=== PATIENT | female | born 1970 | race Caucasian/White ===

== ENCOUNTER 2025-07-07 14:24 | Day surgery (SDC) | payer OTHER, SELFPAY ==
[2025-07-07] VITALS (8 sets, daily range): BP systolic 113–152; BP diastolic 66–91; PULSE 63–84; RESP 16–20; TEMP 36.2–36.5; O2SAT 93–100; BMI 36.8
[2025-07-07] MEDS: Lactated Ringers 1,000 ML 15 ML IV (14:46)
--- OUTSIDE RECORDS SUMMARY | 2025-07-07 14:59 | XMS RPT_ITS | CCD ---
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 49 U/L ADM SS AST [Catalytic activity/Vol] 22 U/L Normal 8 - 34 U/L ADM SS Bilirubin [Mass/Vol] 0.50 mg/dL Normal 0.20 - 1.20 mg/dL AH ADM SS Comment on above: Interpretive Data: U se of this assay is not recommended for patients undergoing treatment with eltrombopag due to the potential for falsely elevated results. Calcium [Mass/Vol] 8.4 mg/dL Low 8.7 - 10. 4 mg/dL AH ADM SS Chloride [Moles/Vol] 106 mmol/L Normal 98 - 11 0 mEq/L AH ADM SS CO2 [Moles/Vol] 21 mmol/L Low 22 - 32 mEq/L AH ADM SS Creatinine [Mass/Vol] 0.82 mg/dL Normal 0.50 - 1.20 mg/dL AH ADM SS Comment on above: Interpretive Data: T esting performed on itzbig analyzer using enzymatic creatinine methodology. Electrolyte Balance 8.0 mEq/L Normal 4.0 - 15 .0 mEq/L ADM SS Estimated Glomerular Filtration Rate 85 ml/min/1.73sqm Invalid Interpretation Code Chemistry S Comment on above: Interpretive Data: Stages of Chronic Kidney Disease (CKD) Stage Description eGFR(ml/min/1.73 sq.m.) CKD 1 Normal kidney function or >=90 normal kindney function with possible kidney damage (ex. Proteinuria) CKD 2 Kidney damage with mild loss 60-89 of kidney function CKD 3a Mild to moderate loss of kidney 45-59 function CKD 3b Moderate to severe loss of 30-44 of kindey function CKD 4 Severe loss of kidney function 15-29 CKD 5 Kidney failure <15 Note: (go live 2024) the eGFR calculation was updated to the 2020 CKD-EPI creatinine equation without a race factor to calculate the eGFR results. Globulin 3.4 G/dL Normal 2.5 - 4.2 G/dL ADM SS Glucose [Mass/Vol] 130 mg/dL High 70 - 110 mg/dL ADM SS Potassium [Moles/Vol] 3.8 mmol/L Normal 3.5 - 5.0 mEq/L AH ADM SS Protein [Mass/Vol] 6.2 G/dL Normal 5.7 - 8.2 G/dL AH ADM SS Sodium [Moles/Vol] 135 mmol/L Low 136 - 145 mEq/L AH ADM SS Urea nitrogen [Mass/Vol] 8.0 mg/dL Normal 8.0 - 22.0 mg/dL ADM SS Urea nitrogen/Creatinine [Mass ratio] 9.8 ratio Low 10.0 - 22.0 ratio AH ADM SS .Auto Diffon 11-25-2024 Basophil, Absolute 0.0 10 3/mcL Normal 0.0-0.3 [facility] Comment on above: Performed By: #### A DIFF, MDW, ANEU, BMP, GFR, TROPHS, CBC, APTT, PRO #### [facility] [address] [place], [place] [address] Basophils/100 WBC (Bld) 0.1 % Normal 0.0-2.5 [facility]A [place] Comment on above: Performed By: #### A DIFF, MDW, ANEU, BMP, GFR, TROPHS, CBC, APTT, PRO #### [facility] [address] [place], [place] [address] Eosinophil, Absolute 0.1 10 3/mcL Normal 0.0-0.7 [facility] [place] Comment on above: Performed By: #### A DIFF, MDW, ANEU, BMP, GFR, TROPHS, CBC, APTT, PRO #### [address] [place], [place] [address] Eosinophils/100 WBC (Bld) 0.3 % Normal 0.0-6.0 [facility] Comment on above: Performed By: #### A DIFF, MDW, ANEU, BMP, GFR, TROPHS, CBC, APTT, PRO #### [facility] [address] [place], [place] [address] Lymphocyte, Absolute 0.8 10 3/mcL Low 0.9-4.3 AU MAN [place] Comment on above: Performed By: #### A DIFF, MDW, ANEU, BMP, GFR, TROPHS, CBC, APTT, PRO #### [facility] [address] [place], [place] [address] Lymphocytes/100 WBC (Bld) 4.2 % Low 20.0-40.0 [facility]IKA [place] Comment on above: Performed By: #### A DIFF, MDW, ANEU, BMP, GFR, TROPHS, CBC, APTT, PRO #### [address] [place], [place] [address] Monocyte, Absolute 1.1 10 3/mcL Normal 0.1-1.4 [facility] Comment on above: Performed By: #### A DIFF, MDW, ANEU, BMP, GFR, TROPHS, CBC, APTT, PRO #### [address] [place], [place] [address] Monocytes/100 WBC (Bld) 5.7 % Normal 2.0-13.0 [facility] Comment on above: Performed By: #### A DIFF, MDW, ANEU, BMP, GFR, TROPHS, CBC, APTT, PRO #### [address] [place], [place] [address] Neutrophils/100 WBC (Bld) 89.7 % High 50.0-75.0 [facility]IKA [place] Comment on above: Performed By: #### A DIFF, MDW, ANEU, BMP, GFR, TROPHS, CBC, APTT, PRO #### [address] [place], [place] [address] .GFRon 11-25-2024 Estimated Glomerular Filtration Rate 67 ml/min/1.73sqm Normal [facility] Comment on above: Result Comment: Stages of Chronic Kidney Disease (CKD) Stage Description eGFR(ml/min/1.73 sq.m.) CKD 1 Normal kidney function or >=90 normal kindney function with possible kidney damage (ex. Proteinuria) CKD 2 Kidney damage with mild loss 60-89 of kidney function CKD 3a Mild to moderate loss of kidney 45-59 function CKD 3b Moderate to severe loss of 30-44 of kindey function CKD 4 Severe loss of kidney function 15-29 CKD 5 Kidney failure <15 Note: (go live 2024) the eGFR calculation was updated to the 2020 CKD-EPI creatinine equation without a race factor to calculate the eGFR results. Performed By: #### A DIFF, MDW, ANEU, BMP, GFR, TROPHS, CBC, APTT, PRO #### [address] [place], [place] [address] .MDWon 11-25-2024 Monocyte Distribution Width 21.87 High 0.00-20.00 [facility] Comment on above: Result Comment: For adults in ED, MDW>20.0 may be associated with a higher risk of sepsis during the first 12hrs of hospital admission Performed By: #### A DIFF, MDW, ANEU, BMP, GFR, TROPHS, CBC, APTT, PRO #### [address] [place], [place] [address] .NEUABSon 11-25-2024 Neutrophil, Absolute 17.5 10 3/mcL High 2.3-8.1 A [facility]AN [place] Comment on above: Performed By: #### A DIFF, MDW, ANEU, BMP, GFR, TROPHS, CBC, APTT, PRO #### [address] [place] [phone] CBCon 11-25-2024 Erythrocyte distribution width (RBC) [Ratio] 13.3 % Normal 11.5-15.5 [facility] Comment on above: Performed By: #### L IP, CMP, GFR, ANEU, MDW, CBC, ADIFF #### [address] [place] [phone] Hematocrit (Bld) [Volume fraction] 42.8 % Normal 34.0-46.0 [facility] Comment on above: Performed By: #### L IP, CMP, GFR, ANEU, MDW, CBC, ADIFF #### [address] [place], [place] [address] Hgb 14.7 G/dL Normal 12.0-16.0 [facility]A [place] Comment on above: Performed By: #### L IP, CMP, GFR, ANEU, MDW, CBC, ADIFF #### [address] [place], [place] [address] MCH (RBC) [Entitic mass] 33.1 pg High 27.0-33.0 [facility] [place] Comment on above: Performed By: #### L IP, CMP, GFR, ANEU, MDW, CBC, ADIFF #### [address] [place] [phone] MCHC 34.4 G/dL Normal 32.0-36.0 [facility] [place] Comment on above: Performed By: #### L IP, CMP, GFR, ANEU, MDW, CBC, ADIFF #### [address] [place], [place] [address] MCV (RBC) [Entitic vol] 96.4 fL Normal 80.0-99.0 [facility] [place] Comment on above: Performed By: #### L IP, CMP, GFR, ANEU, MDW, CBC, ADIFF #### [address] [place], [place] [address] Platelet 308 10 3/mcL Normal 150-450 [facility] [place] Comment on above: Performed By: #### L IP, CMP, GFR, ANEU, MDW, CBC, ADIFF #### [facility] [place], [place] [address] Platelet mean volume (Bld) [Entitic vol] 6.7 fL Normal 6.6-10.5 [facility] [place] Comment on above: Performed By: #### L IP, CMP, GFR, ANEU, MDW, CBC, ADIFF #### [facility] [place], [place] [address] RBC 4.44 10 6/mcL Normal 4.10-5.30 [facility] [place] Comment on above: Performed By: #### L IP, CMP, GFR, ANEU, MDW, CBC, ADIFF #### Marika [address] [place], [place] [address] WBC 19.5 10 3/mcL High 4.5-10.8 [facility] [place] Comment on above: Performed By: #### L IP, CMP, GFR, ANEU, MDW, CBC, ADIFF #### [facility] [place], [place] [address] CMPon 11-25-2024 Albumin Level 3.2 G/dL Low 3.5-5.0 [facility] [place] Comment on above: Performed By: #### A DIFF, MDW, ANEU, BMP, GFR, TROPHS, CBC, APTT, PRO #### [facility] [address] [place], [place] [address] Albumin/Globulin [Mass ratio] 0.8 {ratio} Low 1.1-2.5 [facility] Comment on above: Performed By: #### A DIFFKELIN, ANEU, BMP, GFR, TROPHS, CBC, APTT, PRO #### [facility] [address] [place], [place] [address] ALP [Catalytic activity/Vol] 86 U/L Normal 40-135 [facility] Comment on above: Performed By: #### A DIFF, KELIN, ANEU, BMP, GFR, TROPHS, CBC, APTT, PRO #### [facility] [address] [place], [place] [address] ALT [Catalytic activity/Vol] 18 U/L Normal 14-59 [facility] Comment on above: Performed By: #### A KELIN RUBY, ANEU, BMP, GFR, TROPHS, CBC, APTT, PRO #### [facility] [address] [place] [phone] AST [Catalytic activity/Vol] 11 U/L Normal 10-40 [facility] Comment on above: Performed By: #### A KELIN RUBY, ANEU, BMP, GFR, TROPHS, CBC, APTT, PRO #### [facility] [address] [place], [place] [address] Bili Total 1.0 mg/dL Normal 0.2-1.0 [facility] Comment on above: Result Comment: Use of this assay is not recommended for patients undergoing treatment with eltrombopag due to the potential for falsely elevated results. Performed By: #### A KELIN RUBY, ANEU, BMP, GFR, TROPHS, CBC, APTT, PRO #### [facility] [address] [place], [place] [address] BUN/Creatinine Ratio 8 ratio Normal 7-27 [facility] Comment on above: Performed By: #### A DIFF, KELIN, ANEU, BMP, GFR, TROPHS, CBC, APTT, PRO #### [facility] [address] [place], [place] [address] Calcium [Mass/Vol] 9.3 mg/dL Normal 8.4-10.2 AULTMA N [place] Comment on above: Performed By: #### A DIFF, MDW, ANEU, BMP, GFR, TROPHS, CBC, APTT, PRO #### [facility] [address] [place], [place] [address] Chloride [Moles/Vol] 100 mmol/L Normal 98-107 ANNITA MAN [place] Comment on above: Performed By: #### A DIFF, MDW, ANEU, BMP, GFR, TROPHS, CBC, APTT, PRO #### [facility] [address] [place], [place] [address] CO2 [Moles/Vol] 29 mmol/L Normal 22-29 [facility] Comment on above: Performed By: #### A DIFF, MDW, ANEU, BMP, GFR, TROPHS, CBC, APTT, PRO #### [facility] [address] [place], [place] [address] Creatinine [Mass/Vol] 1.00 mg/dL High 0.51-0.95 [facility] Comment on above: Performed By: #### A DIFF, MDW, ANEU, BMP, GFR, TROPHS, CBC, APTT, PRO #### [facility] [address] [place], [place] [address] Electrolyte Balance 7.0 mEq/L Normal 4.0-15.0 AULTM AN [place] Comment on above: Performed By: #### A DIFF, MDW, ANEU, BMP, GFR, TROPHS, CBC, APTT, PRO #### [facility] [address] [place], [place] [address] Globulin 4.2 G/dL Normal 2.7-4.4 [facility] Comment on above: Performed By: #### A DIFF, MDW, ANEU, BMP, GFR, TROPHS, CBC, APTT, PRO #### [facility] [address] [place], [place] [address] Glucose [Mass/Vol] 128 mg/dL High 70-105 AULTMA N [place] Comment on above: Performed By: #### A DIFF, MDW, ANEU, BMP, GFR, TROPHS, CBC, APTT, PRO #### [facility] [address] [place], [place] [address] Potassium [Moles/Vol] 3.8 mmol/L Normal 3.5-5.1 [facility] Comment on above: Performed By: #### A DIFF, MDW, ANEU, BMP, GFR, TROPHS, CBC, APTT, PRO #### [facility] [address] [place], [place] [address] Sodium [Moles/Vol] 136 mmol/L Normal 136-145 AULTOR N AMASA Comment on above: Performed By: #### A DIFF, MDW, ANEU, BMP, GFR, TROPHS, CBC, APTT, PRO #### [facility] [address] [place], [place] [address] Total Protein 7.4 G/dL Normal 6.4-8.2 [facility] Comment on above: Performed By: #### A DIFF, KELIN, ANEU, BMP, GFR, TROPHS, CBC, APTT, PRO #### [facility] [place], [place] [address] Urea nitrogen [Mass/Vol] 8 mg/dL Normal 7-18 [facility] Comment on above: Performed By: #### A DIFF, KELIN, ANEU, BMP, GFR, TROPHS, CBC, APTT, PRO #### [address] [place], [place] [address] LABORATORYOrdered By: Elvia Mcgraw on 11-25-2024 Beta HCG ( test) Ql (U) Negative (11/25/24 3:10 PM) [facility] LABORATORYOrdered By: SYSTEM SYSTEM on 11-25-2024 Albumin Level 3.2 G/dL Low 3.5 - 5.0 G/dL AM ADM SS Albumin/Globulin [Mass ratio] 0.8 {ratio} Low 1.1 - 2.5 ratio AM ADM SS Alk Phos 86 1 Normal 40 - 135 U/L AM ADM SS ALT [Catalytic activity/Vol] 18 U/L Normal 14 - 59 U/L AM ADM SS AST [Catalytic activity/Vol] 11 U/L Normal 10 - 40 U/L AM ADM SS Basophils (Bld) [#/Vol] 0.0 103/mcL Normal 0.0 - 0.3 10^3/mcL AM Workflow SS Basophils/100 WBC (Bld) 0.1 % Normal 0.0 - 2.5 % AM Workflow SS Bili Total 1.0 mg/dL Normal 0.2 - 1.0 mg/dL AM ADM SS Comment on above: Interpretive Data: U se of this assay is not recommended for patients undergoing treatment with eltrombopag due to the potential for falsely elevated results. BUN/Creatinine Ratio 8 ratio Normal 7 - 27 ratio AM ADM SS Calcium [Mass/Vol] 9.3 mg/dL Normal 8.4 - 10. 2 mg/dL AM ADM SS Chloride [Moles/Vol] 100 mmol/L Normal 98 - 10 7 mmol/L AM ADM SS CO2 [Moles/Vol] 29 mmol/L Normal 22 - 29 mmol/L AM ADM SS Creatinine [Mass/Vol] 1.00 mg/dL High 0.51 - 0.95 mg/dL AM ADM SS Electrolyte Balance 7.0 mEq/L Normal 4.0 - 15 .0 mEq/L AM ADM SS Eosinophils (Bld) [#/Vol] 0.1 103/mcL Normal 0.0 - 0.7 10^3/mcL AM Workflow SS Eosinophils/100 WBC (Bld) 0.3 % Normal 0.0 - 6.0 % AM Workflow SS Erythrocyte distribution width (RBC) [Ratio] 13.3 % Normal 11.5 - 15.5 % AM Workflow SS Estimated Glomerular Filtration Rate 67 ml/min/1.73sqm Invalid Interpretation Code AM Chemistry S Comment on above: Interpretive Data: Stages of Chronic Kidney Disease (CKD) Stage Description eGFR(ml/min/1.73 sq.m.) CKD 1 Normal kidney function or >=90 normal kindney function with possible kidney damage (ex. Proteinuria) CKD 2 Kidney damage with mild loss 60-89 of kidney function CKD 3a Mild to moderate loss of kidney 45-59 function CKD 3b Moderate to severe loss of 30-44 of kindey function CKD 4 Severe loss of kidney function 15-29 CKD 5 Kidney failure <15 Note: (go live 2024) the eGFR calculation was updated to the 2020 CKD-EPI creatinine equation without a race factor to calculate the eGFR results. Globulin 4.2 G/dL Normal 2.7 - 4.4 G/dL AM ADM SS Glucose [Mass/Vol] 128 mg/dL High 70 - 105 mg/dL AM ADM SS Hematocrit (Bld) [Volume fraction] 42.8 % Normal 34.0 - 46.0 % AM Workflow SS Hemoglobin (Bld) [Mass/Vol] 14.7 G/dL Normal 12.0 - 16.0 G/dL AM Workflow SS Lipase Level 21 1 Normal 16 - 77 U/L AM ADM SS Lymphocytes (Bld) [#/Vol] 0.8 103/mcL Low 0.9 - 4.3 10^3/mcL AM Workflow SS Lymphocytes/100 WBC (Bld) 4.2 % Low 20.0 - 40.0 % AM Workflow SS MCH (RBC) [Entitic mass] 33.1 pg High 27.0 - 33.0 pg AM Workflow SS MCHC 34.4 G/dL Normal 32.0 - 36.0 G/dL AM Workflow SS MCV (RBC) [Entitic vol] 96.4 fL Normal 80.0 - 99.0 fL AM Workflow SS Monocyte distribution width Auto (Bld) [Entitic vol] 21.87 1 High 0.00 - 20.00 AM Workflow SS Comment on above: Result Comment: For adults in ED, MDW>20.0 may be associated with a higher risk of sepsis during the first 12hrs of hospital admission Monocytes (Bld) [#/Vol] 1.1 103/mcL Normal 0.1 - 1.4 10^3/mcL AM Workflow SS Monocytes/100 WBC (Bld) 5.7 % Normal 2.0 - 13.0 % AM Workflow SS Neutrophils (Bld) [#/Vol] 17.5 103/mcL High 2.3 - 8.1 10^3/mcL AM Workflow SS Neutrophils/100 WBC (Bld) 89.7 % High 50.0 - 75.0 % AM Workflow SS Platelet mean volume (Bld) [Entitic vol] 6.7 fL Normal 6.6 - 10.5 fL AM Workflow SS Platelets (Bld) [#/Vol] 308 103/mcL Normal 150 - 450 10^3/mcL AM Workflow SS Potassium [Moles/Vol] 3.8 mmol/L Normal 3.5 - 5.1 mmol/L AM ADM SS RBC (Bld) [#/Vol] 4.44 106/mcL Normal 4.10 - 5.3 0 10^6/mcL AM Workflow SS Sodium [Moles/Vol] 136 mmol/L Normal 136 - 145 mmol/L AM ADM SS Total Protein 7.4 G/dL Normal 6.4 - 8.2 G/dL AM ADM SS Urea nitrogen [Mass/Vol] 8 mg/dL Normal 7 - 18 mg/dL AM ADM SS WBC (Bld) [#/Vol] 19.5 103/mcL High 4.5 - 10.8 10^3/mcL AM Workflow SS LIPon 11-25-2024 Lipase Level 21 U/L Normal 16-[address] [facility] Comment on above: Performed By: #### A DIFF, MDW, ANEU, BMP, GFR, TROPHS, CBC, APTT, PRO #### Marika [address] [place] [phone] US ABDOMEN LIMITEDon 025 US ABDOMEN LIMITED ORIGINAL EXAMINATION: LIMITED ABDOMINAL ULTRASOUND11/25/2024 11:38 am Limited ultrasound of the abdomen attention right upper quadrant COMPARISON: CT 11/23/2024 TECHNIQUE: This report is based on interpretation of permanently recorded ultrasound images. HISTORY: ORDERING SYSTEM PROVIDED HISTORY: Reason for Exam: abdominal pain; suspect gallstones, gallbladder, or cholecystitis, FINDINGS: The liver is normal in size and echogenicity. No suspicious focal lesions are seen. There is no intrahepatic bile duct dilatation. The common duct is 2 mm at the meri hepatis. There is antegrade blood flow in the main portal vein.. The gallbladder is moderately distended with a stone in the gallbladder neck region. This is not mobile with change in position. There is borderline gallbladder wall thickening. Negative sonographic Lanier's sign.. The pancreas is suboptimally evaluated due to bowel gas artifacts.. No ascites is seen in the Aranda's pouch. Limited survey images of the right kidney shows normal size and no hydronephrosis. IMPRESSION: Gallstone with borderline gallbladder wall thickening and negative sonographic Lanier's sign. Findings are equivocal for the possibility of acute cholecystitis. If strongly suspected, consider HIDA scan. Interpreted by: Garland Tobias MD Preliminary Report By: Garland Tobias MD Electronically signed By Garland Tobias MD Dictated Date: 11/25/2024 11:41:47 AM Prelim Date: 11/25/2024 11:43:41 AM Sign Date: 11/25/2024 11:43:41 AM Ordering Provider: [facility] .Auto Diffon 11-23-2024 Basophil, Absolute 0.1 10 3/mcL Normal 0.0-0.3 ANNITA MAN [place] Comment on above: Performed By: #### A DIFF, MDW, ANEU, BMP, GFR, TROPHS, CBC, APTT, PRO #### [address] [place], [place] [address] Basophils/100 WBC (Bld) 1.5 % Normal 0.0-2.5 [facility]IKA [place] Comment on above: Performed By: #### A DIFF, MDW, ANEU, BMP, GFR, TROPHS, CBC, APTT, PRO #### [address] [place], [place] [address] Eosinophil, Absolute 0.0 10 3/mcL Normal 0.0-0.7 AU LTMAN [place] Comment on above: Performed By: #### A DIFF, MDW, ANEU, BMP, GFR, TROPHS, CBC, APTT, PRO #### [facility] [address] [place], [place] [address] Eosinophils/100 WBC (Bld) 0.5 % Normal 0.0-6.0 [facility]IKA [place] Comment on above: Performed By: #### A DIFF, MDW, ANEU, BMP, GFR, TROPHS, CBC, APTT, PRO #### [facility] [address] [place], [place] [address] Lymphocyte, Absolute 1.5 10 3/mcL Normal 0.9-4.3 AU LTMAN [place] Comment on above: Performed By: #### A DIFF, MDW, ANEU, BMP, GFR, TROPHS, CBC, APTT, PRO #### [address] [place], [place] [address] Lymphocytes/100 WBC (Bld) 15.7 % Low 20.0-40.0 MARIKA [place] Comment on above: Performed By: #### A DIFF, MDW, ANEU, BMP, GFR, TROPHS, CBC, APTT, PRO #### [address] [place], [place] [address] Monocyte, Absolute 0.5 10 3/mcL Normal 0.1-1.4 [facility] Comment on above: Performed By: #### A DIFF, MDW, ANEU, BMP, GFR, TROPHS, CBC, APTT, PRO #### [facility] [address] [place], [place] [address] Monocytes/100 WBC (Bld) 5.6 % Normal 2.0-13.0 [facility] Comment on above: Performed By: #### A DIFF, MDW, ANEU, BMP, GFR, TROPHS, CBC, APTT, PRO #### [facility] [address] [place], [place] [address] Neutrophils/100 WBC (Bld) 76.7 % High 50.0-75.0 [facility] Comment on above: Performed By: #### A DIFF, MDW, ANEU, BMP, GFR, TROPHS, CBC, APTT, PRO #### [address] [place], [place] [address] .GFRon 11-23-2024 Estimated Glomerular Filtration Rate 71 ml/min/1.73sqm Normal [facility] Comment on above: Result Comment: Stages of Chronic Kidney Disease (CKD) Stage Description eGFR(ml/min/1.73 sq.m.) CKD 1 Normal kidney function or >=90 normal kindney function with possible kidney damage (ex. Proteinuria) CKD 2 Kidney damage with mild loss 60-89 of kidney function CKD 3a Mild to moderate loss of kidney 45-59 function CKD 3b Moderate to severe loss of 30-44 of kindey function CKD 4 Severe loss of kidney function 15-29 CKD 5 Kidney failure <15 Note: (go live 2024) the eGFR calculation was updated to the 2020 CKD-EPI creatinine equation without a race factor to calculate the eGFR results. Performed By: #### A DIFF, MDW, ANEU, BMP, GFR, TROPHS, CBC, APTT, PRO #### [address] [place], [place] [address] .MDWon 11-23-2024 Monocyte Distribution Width 17.70 Normal 0.00-20.00 [facility] Comment on above: Result Comment: For ED adult patients suspected of sepsis, MDW<=20.0 does not rule out sepsis or risk of sepsis Performed By: #### A DIFF, MDW, ANEU, BMP, GFR, TROPHS, CBC, APTT, PRO #### [facility] [address] [place] [phone] .NEUABSon 11-23-2024 Neutrophil, Absolute 7.2 10 3/mcL Normal 2.3-8.1 [facility] Comment on above: Performed By: #### A DIFF, MDW, ANEU, BMP, GFR, TROPHS, CBC, APTT, PRO #### [facility] [address] [place] [address] CBCon 11-23-2024 Erythrocyte distribution width (RBC) [Ratio] 13.0 % Normal 11.5-15.5 [facility] Comment on above: Performed By: #### A DIFF, MDW, ANEU, BMP, GFR, TROPHS, CBC, APTT, PRO #### [facility] [address] [place] [phone] Hematocrit (Bld) [Volume fraction] 41.3 % Normal 34.0-46.0 [facility] Comment on above: Performed By: #### A DIFF, MDW, ANEU, BMP, GFR, TROPHS, CBC, APTT, PRO #### [facility] [address] [place] [phone] Hgb 14.3 G/dL Normal 12.0-16.0 [facility] Comment on above: Performed By: #### A DIFF, MDW, ANEU, BMP, GFR, TROPHS, CBC, APTT, PRO #### [facility] [address] [place] [phone] MCH (RBC) [Entitic mass] 33.2 pg High 27.0-33.0 [facility] Comment on above: Performed By: #### A DIFF, MDW, ANEU, BMP, GFR, TROPHS, CBC, APTT, PRO #### [facility] [address] [place], [place] [address] MCHC 34.5 G/dL Normal 32.0-36.0 [facility] Comment on above: Performed By: #### A DIFF, MDW, ANEU, BMP, GFR, TROPHS, CBC, APTT, PRO #### Marika [address] [place], [place] [address] MCV (RBC) [Entitic vol] 96.1 fL Normal 80.0-99.0 [facility] Comment on above: Performed By: #### A DIFF, MDW, ANEU, BMP, GFR, TROPHS, CBC, APTT, PRO #### Marika [address] [place], [place] [address] Platelet 342 10 3/mcL Normal 150-450 [facility] Comment on above: Performed By: #### A DIFF, MDW, ANEU, BMP, GFR, TROPHS, CBC, APTT, PRO #### Marika [address] [place], [place] [address] Platelet mean volume (Bld) [Entitic vol] 6.6 fL Normal 6.6-10.5 [facility] Comment on above: Performed By: #### A DIFF, MDW, ANEU, BMP, GFR, TROPHS, CBC, APTT, PRO #### Marika [address] [place], [place] [address] RBC 4.30 10 6/mcL Normal 4.10-5.30 MARIKA [facility] Comment on above: Performed By: #### A DIFF, MDW, ANEU, BMP, GFR, TROPHS, CBC, APTT, PRO #### Marika [address] [place], [place] [address] WBC 9.4 10 3/mcL Normal 4.5-10.8 MARIKA [facility] Comment on above: Performed By: #### A DIFF, MDW, ANEU, BMP, GFR, TROPHS, CBC, APTT, PRO #### Marika [address] [place], [place] [address] CMPon 11-23-2024 Albumin Level 3.6 G/dL Normal 3.5-5.0 MARIKA MASSILLON Comment on above: Performed By: #### A DIFF, MDW, ANEU, BMP, GFR, TROPHS, CBC, APTT, PRO #### [facility] [address] [place], [place] [address] Albumin/Globulin [Mass ratio] 1.1 {ratio} Normal 1.1-2.5 [facility] Comment on above: Performed By: #### A DIFF, MDW, ANEU, BMP, GFR, TROPHS, CBC, APTT, PRO #### [facility] [address] [place], [place] [address] ALP [Catalytic activity/Vol] 73 U/L Normal 40-135 [facility] Comment on above: Performed By: #### A DIFF, MDW, ANEU, BMP, GFR, TROPHS, CBC, APTT, PRO #### [facility] [address] [place], [place] [address] ALT [Catalytic activity/Vol] 24 U/L Normal 14-59 [facility] Comment on above: Performed By: #### A DIFF, MDW, ANEU, BMP, GFR, TROPHS, CBC, APTT, PRO #### [facility] [address] [place], [place] [address] AST [Catalytic activity/Vol] 32 U/L Normal 10-40 [facility] Comment on above: Performed By: #### A DIFF, MDW, ANEU, BMP, GFR, TROPHS, CBC, APTT, PRO #### [facility] [address] [place], [place] [address] Bili Total 0.4 mg/dL Normal 0.2-1.0 [facility] Comment on above: Result Comment: Use of this assay is not recommended for patients undergoing treatment with eltrombopag due to the potential for falsely elevated results. Performed By: #### A DIFF, MDW, ANEU, BMP, GFR, TROPHS, CBC, APTT, PRO #### [facility] [address] [place], [place] [address] BUN/Creatinine Ratio 8 ratio Normal 7-27 [facility] Comment on above: Performed By: #### A DIFF, MDW, ANEU, BMP, GFR, TROPHS, CBC, APTT, PRO #### [facility] [address] [place], [place] [address] Calcium [Mass/Vol] 8.9 mg/dL Normal 8.4-10.2 AULTMA N MASSILLO Comment on above: Performed By: #### A DIFF, MDW, ANEU, BMP, GFR, TROPHS, CBC, APTT, PRO #### [facility] [address] [place], [place] [address] Chloride [Moles/Vol] 103 mmol/L Normal 98-107 ANNITA MAN [facility] Comment on above: Performed By: #### A DIFF, MDW, ANEU, BMP, GFR, TROPHS, CBC, APTT, PRO #### [facility] [address] [place], [place] [address] CO2 [Moles/Vol] 24 mmol/L Normal 22-29 [facility] Comment on above: Performed By: #### A DIFF, MDW, ANEU, BMP, GFR, TROPHS, CBC, APTT, PRO #### [facility] [address] [place], [place] [address] Creatinine [Mass/Vol] 0.96 mg/dL High 0.51-0.95 [facility] Comment on above: Performed By: #### A DIFF, MDW, ANEU, BMP, GFR, TROPHS, CBC, APTT, PRO #### [facility] [address] [place], [place] [address] Electrolyte Balance 11.0 mEq/L Normal 4.0-15.0 AULT AN MASSILLO Comment on above: Performed By: #### A DIFF, MDW, ANEU, BMP, GFR, TROPHS, CBC, APTT, PRO #### [facility] [address] [place], [place] [address] Globulin 3.4 G/dL Normal 2.7-4.4 [facility] Comment on above: Performed By: #### A DIFF, MDW, ANEU, BMP, GFR, TROPHS, CBC, APTT, PRO #### [facility] [address] [place], [place] [address] Glucose [Mass/Vol] 108 mg/dL High 70-105 AULTMA N [facility] Comment on above: Performed By: #### A KELIN RUBY, ANEU, BMP, GFR, TROPHS, CBC, APTT, PRO #### [facility] [address] [place], [place] [address] Potassium [Moles/Vol] 4.0 mmol/L Normal 3.5-5.1 AUL TMAN AMASA Comment on above: Performed By: #### A MD FLORIW, ANEU, BMP, GFR, TROPHS, CBC, APTT, PRO #### [facility] [address] [place], [place] [address] Sodium [Moles/Vol] 138 mmol/L Normal 136-145 AULTMA N AMASA Comment on above: Performed By: #### A KELIN RUBY, ANEU, BMP, GFR, TROPHS, CBC, APTT, PRO #### [facility] [address] [place], [place] [address] Total Protein 7.0 G/dL Normal 6.4-8.2 [facility] Comment on above: Performed By: #### A KELIN RUBY, ANEU, BMP, GFR, TROPHS, CBC, APTT, PRO #### [facility] [address] [place], [place] [address] Urea nitrogen [Mass/Vol] 8 mg/dL Normal 7-18 [facility] Comment on above: Performed By: #### A KELIN RUBY, ANEU, BMP, GFR, TROPHS, CBC, APTT, PRO #### [facility] [address] [place], [place] [address] CT ABD/PELVIS W/ IV CONTRAST ONLYon 11-23-2024 CT ABD/PELVIS W/ IV CONTRAST ONLY ORIGINAL EXAMINATION: CT OF THE ABDOMEN AND PELVIS WITH CONTRAST11/23/2024 1:40 pm TECHNIQUE: CT of the abdomen and pelvis was performed with the administration of intravenous contrast. Multiplanar reformatted images are provided for review. Automated exposure control, iterative reconstruction, and/or weight based adjustment of the mA/kV was utilized to reduce the radiation dose to as low as reasonably achievable. COMPARISON: 07/14/2021 HISTORY: ORDERING SYSTEM PROVIDED HISTORY: Reason for Exam: MID ABD PAIN, NAUSEA, VOMITING pain FINDINGS: Dependent atelectasis noted in the lungs.. There is no visible pleural or pericardial effusion. The heart is normal in size. The liver, spleen, adrenal glands, and pancreas are within normal limits. Cholelithiasis noted with a large calcified stone in the gallbladder. The left kidney is surgically absent.. A small hiatal hernia noted. The large and small bowel demonstrate no obstruction. Diverticulosis noted. The appendix is normal. No free intraperitoneal fluid or gas is identified. The aorta is normal in caliber. There is no lymphadenopathy. A small hiatal hernia. No filling defects seen in the urinary bladder. Intrauterine device noted. A right adnexal cyst measures 2.5 cm and is mildly complex, measuring 25 Hounsfield units. There is no acute fracture or aggressive osseous lesion. Degenerative changes seen in the spine, most prevalent at L4-5. Mild anterolisthesis seen of L4 with respect L5. A small fat containing hernia noted at the umbilicus. IMPRESSION: 1. Left nephrectomy changes 2. Cholelithiasis. 3. Diverticulosis. 4. Mildly complex right adnexal cyst. Ultrasound of pelvis advised for further evaluation Interpreted by: Domenic Romero MD Preliminary Report By: Domenic Romero MD Electronically signed By Domenic Romero MD Dictated Date: 11/23/2024 1:57:41 PM Prelim Date: 11/23/2024 2:03:46 PM Sign Date: 11/23/2024 2:03:46 PM Ordering Provider: MELISA SANTOS Normal [facility] LIPon 11-23-2024 Lipase Level 35 U/L Normal 16-77 [facility] Comment on above: Performed By: #### A DIFF, MDW, ANEU, BMP, GFR, TROPHS, CBC, APTT, PRO #### [facility] [address] 11-23-2024 High Sensitivity Troponin I 5 ng/L Normal 0-51 [facility] Comment on above: Result Comment: High Sensitive Troponin I Reference Ranges: Female: 0-51 ng/L Male: 0-76 ng/L Testing performed on Dimension EXL using a homogeneous sandwich chemiluminescent immunoassay based on [employer] technology. Performed By: #### A KELIN RUBY, ANEU, BMP, GFR, TROPHS, CBC, APTT, PRO #### [facility] [address] [place], [place] [address] UAon 11-23-2024 Color (U) Yellow Normal MARIKA MASSILLON Comment on above: Performed By: #### A KELIN RUBY, ANEU, BMP, GFR, TROPHS, CBC, APTT, PRO #### [facility] [address] [place] [id number] Glucose (U) [Mass/Vol] Negative Normal Negative MARIKA MASSILLON Comment on above: Performed By: #### A KELIN RUBY, ANEU, BMP, GFR, TROPHS, CBC, APTT, PRO #### [facility] [address] [place], [place] [address] Ketones Ql (U) Negative Normal Neg-Trace MARIKA MASSILLON Comment on above: Performed By: #### A KELIN RUBY, STEPHON, BMP, GFR, TROPHS, CBC, APTT, PRO #### [facility] [address] [place], [place] [address] UA Appear Clear Normal MARIKA MASSILLON Comment on above: Performed By: #### A KELIN RUBY, ANEU, BMP, GFR, TROPHS, CBC, APTT, PRO #### [facility] [address] [place], [place] [address] UA Blood Trace Normal Neg-Trace MARIKA MASSILLON Comment on above: Performed By: #### A KELIN RUBY, ANEU, BMP, GFR, TROPHS, CBC, APTT, PRO #### [facility] [address] [place], [place] [address] UA Leuk Est Negative Normal Negative MARIKA MASSILLON Comment on above: Performed By: #### A KELIN RUBY, ANEU, BMP, GFR, TROPHS, CBC, APTT, PRO #### [facility] [address] [place], [place] [address] UA Nitrite Negative Normal Negative MARIKA MASSILLON Comment on above: Performed By: #### A KELIN RUBY, ANEU, BMP, GFR, TROPHS, CBC, APTT, PRO #### [facility] [address] [place] [address] UA pH 7.0 Normal 5.0 - 8.0 MARIKA MASSILLON Comment on above: Performed By: #### A FLORI, KELIN, ANEU, BMP, GFR, TROPHS, CBC, APTT, PRO #### [facility] [address] [place] [address] UA Protein 30 mg/dL Normal Negative MARIKA MASSILLON Comment on above: Performed By: #### A FLORI, KELIN, ANEU, BMP, GFR, TROPHS, CBC, APTT, PRO #### [facility] [address] [place] [address] UA Spec Grav 1.025 Normal MARIKA AMASA Comment on above: Performed By: #### A KELIN RUBY, ANEU, BMP, GFR, TROPHS, CBC, APTT, PRO #### [facility] [address] [place] [address] UA Specimen Type Clean Catch Normal MARIKA AMASA Comment on above: Performed By: #### A KELIN RUBY, ANEU, BMP, GFR, TROPHS, CBC, APTT, PRO #### [facility] [address] [place] [address] UA Urobilinogen 4.0 E.U./dL Abnormal MARIKA MASSILLON Comment on above: Performed By: #### A KELIN RUBY, ANEU, BMP, GFR, TROPHS, CBC, APTT, PRO #### [facility] [address] [place] [address] Urobilinogen (U) [Mass/Vol] Negative Normal Neg-Trace MARIKA MASSILLON Comment on above: Performed By: #### A KELIN RUBY, ANEU, BMP, GFR, TROPHS, CBC, APTT, PRO #### [facility] [address] [place] [address] UAMICon 11-23-2024 UA Bacteria 2+ /hpf Abnormal Negative MARIKA MASSILLON Comment on above: Performed By: #### A KELIN RUBY, ANEU, BMP, GFR, TROPHS, CBC, APTT, PRO #### [facility] [address] [place], [place] [address] UA RBC 0-2 Normal 0-2 MARIKA MASSILLON Comment on above: Performed By: #### A DIFF, MDW, ANEU, BMP, GFR, TROPHS, CBC, APTT, PRO #### [facility] [address] [place], [place] [address] UA Squam Epithelial 50-100 Abnormal 0-20 AULTM AN MASSILLON Comment on above: Performed By: #### A DIFF, MDW, ANEU, BMP, GFR, TROPHS, CBC, APTT, PRO #### [facility] [address] [place], [place] [address] UA WBC 3-5 Normal 0-5 MARIKA MASSILLON Comment on above: Performed By: #### A DIFF, MDW, ANEU, BMP, GFR, TROPHS, CBC, APTT, PRO #### [facility] [address] [place], [place] [address] US PELVIS NON-OB W/TRANSVAGI NALon 11-23-2024 US PELVIS NON-OB W/TRANSVAGINAL ORIGINAL EXAMINATION: Ultrasound pelvis, 11/23/2024 3:06 pm transabdominal and transvaginal with duplex ovarian Doppler COMPARISON: CT same day TECHNIQUE: This report is based on interpretation of permanently recorded ultrasound images. HISTORY: ORDERING SYSTEM PROVIDED HISTORY: Reason for Exam: right lower quadrant pain, right adnexal cyst on CT, patient has an IUD, patient is not menopausal by given history FINDINGS: The uterus is 8.5 x 4.8 x 4.2 cm. No myometrial mass is seen.. The endometrium is poorly evaluated due to artifacts from an indwelling IUD. It is not abnormally thickened. An IUD is appropriately positioned in the endometrial canal. No 3D imaging is performed. Right ovary: 3.3 x 2.3 x 2.1 cm. There is a 1.9 x 2.4 x 1.8 cm simple appearing follicle in the ovary. Left ovary: Not visualized perhaps obscured by bowel gas artifacts. There is robust blood flow in the right ovary with arterial and venous waveforms shown on spectral analysis. No pelvic free fluid is seen. IMPRESSION: Normal right ovary with a follicle corresponding to the cystic lesion on CT. Robust blood flow to the right ovary. IUD is appropriately position. Interpreted by: Garland Tobias MD Preliminary Report By: Garland Tobias MD Electronically signed By Garland Tobias MD Dictated Date: 11/23/2024 3:19:14 PM Prelim Date: 11/23/2024 3:22:27 PM Sign Date: 11/23/2024 3:22:27 PM Ordering Provider: MELISA SANTOS Normal MARIKA MASSILLON .Auto Diffon 06-06-2024 Basophil, Absolute 0.1 10 3/mcL Normal 0.0-0.3 ANNITA MAN MASSILLON Comment on above: Performed By: #### A DIFF MDW, ANEU, BMP, GFR, TROPHS, CBC, APTT, PRO #### [facility] [address] [place], [place] [address] Basophils/100 WBC (Bld) 0.7 % Normal 0.0-2.5 MARIKA MASSILLON Comment on above: Performed By: #### A DIFF MDW, ANEU, BMP, GFR, TROPHS, CBC, APTT, PRO #### [facility] [address] [place], [place] [address] Eosinophil, Absolute 0.2 10 3/mcL Normal 0.0-0.7 AU MAN MASSILLON Comment on above: Performed By: #### A DIFF MDW, ANEU, BMP, GFR, TROPHS, CBC, APTT, PRO #### [facility] [address] [place], [place] [address] Eosinophils/100 WBC (Bld) 1.6 % Normal 0.0-6.0 MARIKA MASSILLON Comment on above: Performed By: #### A DIFF MDW, ANEU, BMP, GFR, TROPHS, CBC, APTT, PRO #### [facility] [address] [place], [place] [address] Lymphocyte, Absolute 2.7 10 3/mcL Normal 0.9-4.3 AU LTMAN MASSILLON Comment on above: Performed By: #### A DIFF MDW, ANEU, BMP, GFR, TROPHS, CBC, APTT, PRO #### [facility] [address] [place], [place] [address] Lymphocytes/100 WBC (Bld) 28.4 % Normal 20.0-40.0 [facility] Comment on above: Performed By: #### A DIFF, MDW, ANEU, BMP, GFR, TROPHS, CBC, APTT, PRO #### [facility] [address] [place], [place] [address] Monocyte, Absolute 0.8 10 3/mcL Normal 0.1-1.4 [facility] Comment on above: Performed By: #### A DIFF, MDW, ANEU, BMP, GFR, TROPHS, CBC, APTT, PRO #### [facility] [address] [place], [place] [address] Monocytes/100 WBC (Bld) 8.2 % Normal 2.0-13.0 [facility] Comment on above: Performed By: #### A DIFFKELIN, ANEU, BMP, GFR, TROPHS, CBC, APTT, PRO #### [facility] [address] [place], [place] [address] Neutrophils/100 WBC (Bld) 61.1 % Normal 50.0-75.0 [facility] Comment on above: Performed By: #### A DIFF, MDW, ANEU, BMP, GFR, TROPHS, CBC, APTT, PRO #### [facility] [address] [place], [place] [address] .GFRon 06-06-2024 GFR 59 ml/min/1.73sqm Normal [facility] Comment on above: Result Comment: GFR Population mean for , Non- Americans Ages 20-29 = 116 mL/min/1.73 sq.m. Ages 30-39 = 107 mL/min/1.73 sq.m. Ages 40-49 = 99 mL/min/1.73 sq.m. Ages 50-59 = 93 mL/min/1.73 sq.m. Ages 60-69 = 85 mL/min/1.73 sq.m. Ages 70+ = 75 mL/min/1.73 sq.m. Chronic Kidney Disease: Less than 60 mL/min/1.73 square meters End Stage Renal Disease: Less than 15 mL/min/1.73 square meters Performed By: #### A DIFF, MDW, ANEU, BMP, GFR, TROPHS, CBC, APTT, PRO #### [facility] [address] [place], [place] [address] GFR Non- 49 ml/min/1.73sqm Normal [facility] Comment on above: Result Comment: GFR Population mean for , Non- Americans Ages 20-29 = 116 mL/min/1.73 sq.m. Ages 30-39 = 107 mL/min/1.73 sq.m. Ages 40-49 = 99 mL/min/1.73 sq.m. Ages 50-59 = 93 mL/min/1.73 sq.m. Ages 60-69 = 85 mL/min/1.73 sq.m. Ages 70+ = 75 mL/min/1.73 sq.m. Chronic Kidney Disease: Less than 60 mL/min/1.73 square meters End Stage Renal Disease: Less than 15 mL/min/1.73 square meters Performed By: #### A DIFF, MDW, ANEU, BMP, GFR, TROPHS, CBC, APTT, PRO #### [facility] [address] [place] [id number] .MDWon 06-06-2024 Monocyte Distribution Width 18.01 Normal 0.00-20.00 [facility] Comment on above: Result Comment: For ED adult patients suspected of sepsis, MDW<=20.0 does not rule out sepsis or risk of sepsis Performed By: #### A DIFF, MDW, ANEU, BMP, GFR, TROPHS, CBC, APTT, PRO #### [facility] [address] [place], [place] [address] .NEUABSon 06-06-2024 Neutrophil, Absolute 5.8 10 3/mcL Normal 2.3-8.1 [facility] Comment on above: Performed By: #### A DIFF, MDW, ANEU, BMP, GFR, TROPHS, CBC, APTT, PRO #### [facility] [address] [place] [phone] APTTon 06-06-2024 aPTT Coag (Bld) [Time] 31.0 s Normal 25.0-35.0 [facility] Comment on above: Performed By: #### A KLEIN RUBY, ANEU, BMP, GFR, TROPHS, CBC, APTT, PRO #### [facility] [address] [place], [place] [address] BMPon 06-06-2024 BUN/Creatinine Ratio 12 ratio Normal 7-27 ANNITA [facility] Comment on above: Performed By: #### A KELIN RUBY, ANEU, BMP, GFR, TROPHS, CBC, APTT, PRO #### [facility] [address] [place], [place] [address] Calcium [Mass/Vol] 9.3 mg/dL Normal 8.4-10.2 AULTMA N AMASA Comment on above: Performed By: #### A KELIN RUBY, ANEU, BMP, GFR, TROPHS, CBC, APTT, PRO #### [facility] [address] [place], [place] [address] Chloride [Moles/Vol] 102 mmol/L Normal 98-107 [facility] Comment on above: Performed By: #### A KELIN RUBY, ANEU, BMP, GFR, TROPHS, CBC, APTT, PRO #### [facility] [address] [place], [place] [address] CO2 [Moles/Vol] 29 mmol/L Normal 22-29 [facility] Comment on above: Performed By: #### A DIFFKELIN, ANEU, BMP, GFR, TROPHS, CBC, APTT, PRO #### [facility] [address] [place], [place] [address] Creatinine [Mass/Vol] 1.17 mg/dL High 0.55-1.02 [facility] Comment on above: Result Comment: Test ing performed on [employer] Dimension EXL analyzer using a modified kinetic Lauro technique. Performed By: #### A DIFF, W, ANEU, BMP, GFR, TROPHS, CBC, APTT, PRO #### [facility] [address] [place], [place] [address] Electrolyte Balance 8.0 mEq/L Normal 4.0-15.0 AULTM AN MASSILLO Comment on above: Performed By: #### A DIFF, MDW, ANEU, BMP, GFR, TROPHS, CBC, APTT, PRO #### [facility] [address] [place], [place] [address] Glucose [Mass/Vol] 98 mg/dL Normal 70-105 AULTMA N [facility] Comment on above: Performed By: #### A DIFF, MDW, ANEU, BMP, GFR, TROPHS, CBC, APTT, PRO #### [facility] [address] [place], [place] [address] Potassium [Moles/Vol] 4.4 mmol/L Normal 3.5-5.1 AUL TMAN [facility] Comment on above: Performed By: #### A DIFF, MDW, ANEU, BMP, GFR, TROPHS, CBC, APTT, PRO #### [facility] [address] [place], [place] [address] Sodium [Moles/Vol] 139 mmol/L Normal 136-145 AULTMA N [facility] Comment on above: Performed By: #### A DIFF, MDW, ANEU, BMP, GFR, TROPHS, CBC, APTT, PRO #### [facility] [address] [place], [place] [address] Urea nitrogen [Mass/Vol] 14 mg/dL Normal 7-18 [facility] Comment on above: Performed By: #### A DIFF, MDW, ANEU, BMP, GFR, TROPHS, CBC, APTT, PRO #### [facility] [address] [place], [place] [address] CBCon 06-06-2024 Erythrocyte distribution width (RBC) [Ratio] 12.9 % Normal 11.5-15.5 [facility] Comment on above: Performed By: #### A DIFF, MDW, ANEU, BMP, GFR, TROPHS, CBC, APTT, PRO #### [facility] [address] [place], [place] [address] Hematocrit (Bld) [Volume fraction] 42.4 % Normal 34.0-46.0 [facility] Comment on above: Performed By: #### A DIFF, MDW, ANEU, BMP, GFR, TROPHS, CBC, APTT, PRO #### [facility] [address] [place] [phone] Hgb 14.8 G/dL Normal 12.0-16.0 [facility] Comment on above: Performed By: #### A DIFF, MDW, ANEU, BMP, GFR, TROPHS, CBC, APTT, PRO #### [facility] [address] [place] [phone] MCH (RBC) [Entitic mass] 33.5 pg High 27.0-33.0 [facility] Comment on above: Performed By: #### A DIFF, MDW, ANEU, BMP, GFR, TROPHS, CBC, APTT, PRO #### [facility] [address] [place] [address] MCHC 34.9 G/dL Normal 32.0-36.0 [facility] Comment on above: Performed By: #### A DIFF, MDW, ANEU, BMP, GFR, TROPHS, CBC, APTT, PRO #### [facility] [address] [place] [phone] MCV (RBC) [Entitic vol] 96.1 fL Normal 80.0-99.0 [facility] Comment on above: Performed By: #### A DIFF, MDW, ANEU, BMP, GFR, TROPHS, CBC, APTT, PRO #### [facility] [address] [place] [id number] Platelet 366 10 3/mcL Normal 150-450 [facility] Comment on above: Performed By: #### A DIFF, MDW, ANEU, BMP, GFR, TROPHS, CBC, APTT, PRO #### [facility] [address] [place] [phone] Platelet mean volume (Bld) [Entitic vol] 6.5 fL Low 6.6-10.5 [facility] Comment on above: Performed By: #### A DIFF, MDW, ANEU, BMP, GFR, TROPHS, CBC, APTT, PRO #### [facility] [address] [place], [place] [address] RBC 4.42 10 6/mcL Normal 4.10-5.30 MARIKA MASSILLON Comment on above: Performed By: #### A DIFF, MDW, ANEU, BMP, GFR, TROPHS, CBC, APTT, PRO #### [facility] [place], [place] [address] WBC 9.5 10 3/mcL Normal 4.5-10.8 [facility] Comment on above: Performed By: #### A DIFF, MDW, ANEU, BMP, GFR, TROPHS, CBC, APTT, PRO #### [facility] [address] [place], [place] [address] CT HEAD OR BRAIN W/O CONTRAS Ton 06-06-2024 CT HEAD OR BRAIN W/O CONTRAST ORIGINAL EXAMINATION: CT OF THE HEAD WITHOUT IVEDCOLF06/9/2024 10:43 pm TECHNIQUE: CT of the head was performed without the administration of intravenous contrast. Automated exposure control, iterative reconstruction, and/or weight based adjustment of the mA/kV was utilized to reduce the radiation dose to as low as reasonably achievable. COMPARISON: CT head 10/18/2022 HISTORY: ORDERING SYSTEM PROVIDED HISTORY: Reason for Exam: HEADACHE, ARM TINGLING, SWELLING LOWER LIP, NKI, NO NEURO HISTORY pain FINDINGS: There is no intracranial hemorrhage, mass effect or abnormal extra-axial fluid collection. There is no CT evidence for acute large territorial infarction. The ventricles are unremarkable for patient age. The skull base and calvarium demonstrate no acute abnormality. The included paranasal sinuses and mastoid air cells are predominantly clear. IMPRESSION: No acute intracranial abnormality. I have personally reviewed the images of this examination and agree with the resident's findings and interpretation. Interpreted by: Shreyas Gill Preliminary Report By: Billie Gunderson Electronically signed By Shreyas Gill Dictated Date: 06/06/2024 10:44:41 PM Prelim Date: 06/06/2024 10:48:09 PM Sign Date: 06/06/2024 10:55:12 PM Ordering Provider: LOLIS ELLIOTT Normal [facility] MGon 06-06-2024 Magnesium [Mass/Vol] 2.0 mg/dL Normal 1.8-2.4 [facility] Comment on above: Performed By: #### A KELIN RUBY, STEPHON, BMP, GFR, TROPHS, CBC, APTT, PRO #### [facility] [address] [place], [place] [address] PROon 06-06-2024 PT Coag (PPP) [Time] 11.0 s Normal 9.0-14.4 [facility] Comment on above: Performed By: #### A KELIN RUBY, STEPHON, BMP, GFR, TROPHS, CBC, APTT, PRO #### [facility] [address] [place], [place] [address] PT International Ratio 0.9 Normal [facility] Comment on above: Result Comment: The [employer] (CHEST, 1992, [id number]) recommended therapeutic range for oral anticoagulant therapy is: LOW RISK: Prophylaxis of venous thrombosis INR: 2.0-3.0 Treatment of pulmonary embolism 2.0-3.0 Prevention of systemic embolism 2.0-3.0 HIGH RISK: Mechanical prosthetic valves 2.5-3.5 Performed By: #### A KELIN RUBY, STEPHON, BMP, GFR, TROPHS, CBC, APTT, PRO #### [facility] [address] [place], [place] [address] TROPHSon 06-06-2024 High Sensitivity Troponin I 5 ng/L Normal 0-51 [facility] Comment on above: Result Comment: High Sensitive Troponin I Reference Ranges: Female: 0-51 ng/L Male: 0-76 ng/L Testing performed on [employer] using a homogeneous sandwich chemiluminescent immunoassay based on [employer] technology. Performed By: #### A KELIN RUBY, STEPHON, BMP, GFR, TROPHS, CBC, APTT, PRO #### [facility] [place], [place] [address] CNOVon 12-15-2023 CNOV Office Visit ([facility] ) VANDANA BROWN ([id number]) 1970 F Date Time Provider Department 12/15/23 12:05 PM TISH LONDON [facility] During your visit today, we recorded the following information about you: Temperature Pulse Respiration Blood pressure 97.9 degrees 82/minute 20/minute 130/84 Last Period 11/10/23 Tish London, SURYA 12/15/2023 12:16 PM Signed This is a 53-year-old female here with a week of chest congestion, productive cough with yellow phlegm little bit of nausea and some drainage down her throat. She tried [id number] medications without much relief. Denies fevers, chills, chest pain, hemoptysis, ear or throat pain, nasal congestion or drainage, vomiting or diarrhea, leg swelling, weakness. No history of asthma or COPD. The history is provided by the patient. Cough Pertinent negatives include no chest pain, no chills, no sore throat and no eye redness. 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 norethindrone-e.estrad iol-iron (LO LOESTRIN FE) 1 mg-10 mcg (24)/10 mcg (2) Take 1 tablet by mouth once daily. 84 tablet 3 lisinopril (ZESTRIL, PRINIVIL) 5 mg tablet copper (PARAGARD) 380 square mm intrauterine device 1 Intra Uterine Device by INTRAUTERINE route. Placed 05/11/2020 No current facility-administered medications for this visit. Social History Tobacco Use Smoking status: Never Smokeless tobacco: Never Vaping Use Vaping Use: Never used Substance Use Topics Alcohol use: No Drug use: No Review of Systems Constitutional: Negative for chills and fever. HENT: Positive for congestion. Negative for sinus pain and sore throat. Eyes: Negative for discharge and redness. Respiratory: Positive for cough and sputum production. Negative for stridor. Cardiovascular: Negative for chest pain. Gastrointestinal: Negative for diarrhea and vomiting. Skin: Negative for rash. Neurological: Negative for dizziness. BP 130/84 Pulse 82 Temp 97.9 Resp 20 SpO2 98% LMP 11/10/2023 Physical Exam Vitals and nursing note reviewed. Constitutional: General: She is not in acute distress. Appearance: She is not ill-appearing or toxic-appearing. HENT: Head: Normocephalic and atraumatic. Right Ear: Tympanic membrane, ear canal and external ear normal. There is no impacted cerumen. Left Ear: Tympanic membrane, ear canal and external ear normal. There is no impacted cerumen. Nose: Congestion present. Mouth/Throat: Mouth: Mucous membranes are moist. Pharynx: Oropharynx is clear. No oropharyngeal exudate. Comments: Mild posterior pharyngeal erythema with cobblestoning. Eyes: Conjunctiva/sclera: Conjunctivae normal. Cardiovascular: Rate and Rhythm: Normal rate and regular rhythm. Pulmonary: Effort: No respiratory distress. Breath sounds: No stridor. No wheezing, rhonchi or rales. Comments: Slightly diminished breath sounds to the lower lung gastelum bilaterally and posteriorly. Musculoskeletal: Cervical back: Neck supple. Comments: Moves all extremities x 4 spontaneously without difficulty. Skin: General: Skin is warm and dry. Neurological: Mental Status: She is alert. Comments: Awake and alert. Motor gross intact. Steady gait. This is a 53-year-old female here with chest congestion and productive cough. At the time of my exam, patient was afebrile, well-appearing, well-hydrated, not hypoxic, non-toxic and in no acute distress and appropriate for outpatient treatment and management. I suspect initial etiology viral bronchitis however given constellation and duration of symptoms as well as clinical exam I am concerned she is developing a bacterial infection. I am going to start her on doxycycline. Discussed signs and symptoms, progression, and treatment. Patient education provided and discussed along with printed information regarding treatment and follow-up. Patient advised to follow-up with patient's PCP in 3-5 days if no improvement in symptoms. Discussed signs/symptoms and red flags to monitor for and should symptoms worsen, advised patient to go to nearest ER for evaluation. Patient agreeable to plan and verbalized understanding. Pt discharged home in stable condition. (J22) Lower respiratory tract infection (primary encounter diagnosis) Plan: doxycycline hyclate (VIBRAMYCIN) 100 mg capsule, methylPREDNISolone (MEDROL, GOLD,) 4 mg Dose-Pack 1) doxycycline twice daily for 7 days. - drink a full glass of water with each dose - do not take with milk/dairy products - avoid sun exposure - it raises your risk for burn - if (more content not included)... Normal [facility] BMP (POC)on 10-18-2022 Perf Loc - POCT Tested at AM Normal [facility] ([place]) Comment on above: Result Comment: [facility] [address] [place], [place] [address] BUN/Creatinine Ratio (POC) 14.1 ratio Normal 10.0-22.0 [facility] [place]) Calcium Level Ionized (POC) 1.09 mmol/L Low 1.12-1.32 [facility] [place]) Chloride [Moles/Vol] 110 mmol/L Normal 98-110 [facility] ([place]) CO2 [Moles/Vol] 21 mmol/L Low 22-32 [facility] [place] Creatinine [Mass/Vol] 0.90 mg/dL Normal 0.50-1.20 [facility] ([place]) Electrolyte Balance (POC) 11.0 mEq/L Normal 4.0-15.0 [facility] [place] Est GFR (POC) >60 Normal [facility]) Comment on above: Result Comment: Chronic Kidney Disease: Less than 60 mL/min/1.73 square meters End Stage Renal Disease: Less than 15 mL/min/1.73 square meters Est GFR Non- (POC) >60 Normal [facility] ([place] Comment on above: Result Comment: Chronic Kidney Disease: Less than 60 mL/min/1.73 square meters End Stage Renal Disease: Less than 15 mL/min/1.73 square meters Glucose [Mass/Vol] 84 mg/dL Normal 70-110 [facility]) Performing Instrument - POCT EPOC 3 Normal [facility] [place] Potassium [Moles/Vol] 4.1 mmol/L Normal 3.5-5.0 [facility] [place] Sodium [Moles/Vol] 141 mmol/L Normal 136-145 [facility] ([place] Urea nitrogen [Mass/Vol] 13.0 mg/dL Normal 8.0-22.0 [facility]) BNP (POC)on 10-18-2022 Perf Loc - POCT Tested at AM Normal [facility] ([place] Comment on above: Result Comment: [facility] [address] [place], [place] [address] Natriuretic peptide B (Bld) [Mass/Vol] 11 pg/mL Normal <=99 [facility]) Performing Instrument - POCT TRIAGE2 Normal [facility]) CBC (POC)on 10-18-2022 Perf Loc - POCT Tested at AM Normal [facility] ([place] Comment on above: Result Comment: [place] [facility] [address] [place], [place] [address] Basophil, Absolute (POC) 0.02 10 3/mcL Normal 0.00-0.27 [facility] [place] Basophils/100 WBC (Bld) 0.3 % Normal 0.0-2.5 [facility] [place] Eosinophil, Absolute (POC) 0.12 10 3/mcL Normal 0.00-0.65 [facility] [place] Eosinophils/100 WBC (Bld) 1.8 % Normal 0.0-6.0 [facility] [place] Erythrocyte distribution width (RBC) [Ratio] 12.0 % Normal 11.5-15.5 [facility] [place] Hematocrit (Bld) [Volume fraction] 43.1 % Normal 34.0-46.0 [facility] [place] Hemoglobin (POC) 14.9 G/dL Normal 12.0-16.0 [facility] ([place] Imm Granulocyte, Absolute (POC) 0.02 10 3/mcL Normal [facility] [place] Immature granulocytes/100 WBC (Bld) 0.3 % Normal [facility]) Lymphocyte, Absolute (POC) 1.98 10 3/mcL Normal 0.90-4.32 [facility] [place] Lymphocytes/100 WBC (Bld) 29.5 % Normal 20.0-40.0 [facility] [place] MCH (RBC) [Entitic mass] 31.8 pg Normal 27.0-33.0 [facility] [place] MCHC (POC) 34.6 G/dL Normal 32.0-36.0 [facility]) MCV (RBC) [Entitic vol] 92.1 fL Normal 80.0-99.0 [facility]) Monocyte, Absolute (POC) 0.58 10 3/mcL Normal 0.09-1.40 [facility]) Monocytes/100 WBC (Bld) 8.6 % Normal 2.0-13.0 [facility]) Neutrophil, Absolute (POC) 4.00 10 3/mcL Normal 2.25-8.10 [facility]) Neutrophils/100 WBC (Bld) 59.5 % Normal 50.0-75.0 [facility]) Performing Instrument - POCT SYSMEX Normal [facility]) Platelet (POC) 307 10 3/mcL Normal 150-450 [facility]) Platelet mean volume (Bld) [Entitic vol] 8.6 fL Normal 6.6-10.5 [facility]) RBC (POC) 4.68 10 6/mcL Normal 4.50-6.00 [facility] [place] WBC (POC) 6.72 10 3/mcL Normal 4.50-10.80 [facility]) CHEM10 (POC)on 10-18-2022 Perf Loc - POCT Tested at AM Normal [facility]) Comment on above: Result Comment: [facility] [address] [place], [place] [address] Albumin Level (POC) 3.7 G/dL Normal 3.2-4.8 [facility] [place] ALP [Catalytic activity/Vol] 44 U/L Normal 38-126 [facility] [place] ALT [Catalytic activity/Vol] 10 U/L Low 12-55 [facility] [place] Amylase [Catalytic activity/Vol] 26 U/L Normal 25-115 [facility]) Amylase [Catalytic activity/Vol] 12 U/L Normal 5-55 [facility] [place] Asparate Aminotransferase (POC) 24 U/L Normal 8-34 [facility] [place] Bilirubin [Mass/Vol] 0.5 mg/dL Normal 0.2-1.2 [facility] [place] Calcium [Mass/Vol] 8.3 mg/dL Low 8.4-10.1 [facility]) Performing Instrument - POCT KASHMIR Normal [facility] [place] Total Protein (POC) 6.8 G/dL Normal 6.0-8.5 [facility] [place] Uric Acid Level (POC) 4.2 mg/dL Normal 2.3-6.6 [facility] ([place] HEAD OR BRAIN W/O CONTRAS Ton 10-18-2022 CT HEAD OR BRAIN W/O CONTRAST ORIGINAL EXAMINATION: CT HEAD TECHNIQUE: Axial CT images from skull base to vertex without IV contrast. This exam was performed according to our departmental dose optimization program, and includes the following measures where applicable: automated exposure control, adjustment of the mAs and/or kVp according to patient size and/or exam, and an iterative reconstruction algorithm. COMPARISON: CT head 08/28/2021 HISTORY: ORDERING SYSTEM PROVIDED HISTORY: Reason for Exam: STEIN, NAUSEA, NUMBNESS/TINGLING RT ARM, BILATERAL LE PAIN/SWELLING W NKI pain FINDINGS: Parenchyma: No acute intracranial hemorrhage, midline shift, mass effect or acute ischemic infarct is demonstrated. The fish-white matter junctions are preserved. No space occupying intra-axial masses or extra-axial fluid collections are seen.Mild parenchymal volume loss most pronounced along the bilateral frontal convexities is noted. Ventricles: No evidence of hydrocephalus or ventricular effacement. Vessels: No significant atherosclerotic calcifications. Orbits: Unremarkable. Calvarium: Unremarkable. Paranasal sinuses: Clear. Mastoid sinuses: Clear. IMPRESSION: No acute intracranial pathology. Interpreted by: Kamari Willis MD Preliminary Report By: Kamari Willis MD Electronically signed By Kamari Willis MD Dictated Date: 10/18/2022 3:38:21 PM Prelim Date: 10/18/2022 3:40:25 PM Sign Date: 10/18/2022 3:40:25 PM Ordering Provider: KAIT DOUGLAS Normal [facility] [place] UA (POC)on 10-18-2022 Perf Loc - POCT Tested at AM Normal [facility]) Comment on above: Result Comment: Annita [facility] [address] [place], [place] [address] Appearance (U) Clear Normal Clear [facility] [place] Bilirubin Ql (U) Negative Normal Neg-Trace [facility] [place] Color (U) Yellow Normal [facility] [place] Glucose Ql (U) Negative Normal Negative [facility] [place] Hemoglobin Ql (U) Small Abnormal Neg-Trace [facility] [place] Ketones Ql (U) Trace Normal [facility] [place] Leukocyte esterase Test strip Ql (U) Trace Abnormal Neg-Trace [facility] [place] Nitrite Ql (U) Negative Normal Negative [facility]) Performing Instrument - POCT CLINITEK Normal [facility] [place] pH (U) 6.0 [pH] Normal 5.0 - 8.0 [facility] [place] Protein Ql (U) Negative Normal Neg-30 [facility] [place] Specific gravity (U) [Rel density] 1.015 Normal 1.006-1.029 [facility] [place] Urobilinogen Qn (U) 0.2 {Quentin'U}/dL Normal 0.2-1.0 [facility]) LABORATORYOrdered By: SYSTEM SYSTEM on 07-14-2021 Base excess Calc (BldMV) [Moles/Vol] 6.0 mEq/L Invalid Interpretation Code 4.0 - 15.0 mEq/L ADM SS Calcium [Mass/Vol] 9.0 mg/dL Invalid Interpretation Code 8.4 - 10.1 mg/dL ADM SS Chloride [Moles/Vol] 108 mmol/L Invalid Interpretation Code 98 - 110 mEq/L AH ADM SS CO2 [Moles/Vol] 24 mmol/L Invalid Interpretation Code 22 - 32 mEq/L ADM SS Creatinine [Mass/Vol] 0.97 mg/dL Invalid Interpretation Code 0.50 - 1.20 mg/dL AH ADM SS GFR/1.73 sq M.predicted among blacks MDRD (S/P/Bld) [Vol rate/Area] ml/min/1.73sqm Invalid Interpretation Code AH ADM SS GFR/1.73 sq M.predicted among non-blacks MDRD (S/P/Bld) [Vol rate/Area] ml/min/1.73sqm Invalid Interpretation Code AH ADM SS Glucose [Mass/Vol] 100 mg/dL Invalid Interpretation Code 70 - 110 mg/dL AH ADM SS Potassium [Moles/Vol] 4.0 mmol/L Invalid Interpretation Code 3.5 - 5.0 mEq/L AH ADM SS Sodium [Moles/Vol] 138 mmol/L Invalid Interpretation Code 136 - 145 mEq/L AH ADM SS Urea nitrogen [Mass/Vol] 12.0 mg/dL Invalid Interpretation Code 8.0 - 22.0 mg/dL AH ADM SS Urea nitrogen/Creatinine [Mass ratio] 12.4 ratio Invalid Interpretation Code 10.0 - 22.0 ratio AH ADM SS Basophils (Bld) [#/Vol] 0.00 103/mcL Invalid Interpretation Code 0.00 - 0.27 10^3/mcL AH Remisol SS Basophils/100 WBC (Bld) 0.5 % Invalid Interpretation Code 0.0 - 2.5 % AH Remisol SS Eosinophils (Bld) [#/Vol] 0.10 103/mcL Invalid Interpretation Code 0.00 - 0.65 10^3/mcL AH Remisol SS Eosinophils/100 WBC (Bld) 2.2 % Invalid Interpretation Code 0.0 - 6.0 % AH Remisol SS Erythrocyte distribution width (RBC) [Ratio] 12.7 % Invalid Interpretation Code 11.5 - 15.5 % AH Remisol SS Hematocrit (Bld) [Volume fraction] 47.9 % Invalid Interpretation Code 34.0 - 46.0 % AH Remisol SS Hemoglobin (Bld) [Mass/Vol] 16.4 G/dL Invalid Interpretation Code 12.0 - 16.0 G/dL AH Remisol SS Lymphocytes (Bld) [#/Vol] 1.60 103/mcL Invalid Interpretation Code 0.90 - 4.32 10^3/mcL AH Remisol SS Lymphocytes/100 WBC (Bld) 25.8 % Invalid Interpretation Code 20.0 - 40.0 % AH Remisol SS MCH (RBC) [Entitic mass] 32.6 pg Invalid Interpretation Code 27.0 - 33.0 pg AH Remisol SS MCHC (RBC) [Mass/Vol] 34.2 G/dL Invalid Interpretation Code 32.0 - 36.0 G/dL AH Remisol SS MCV (RBC) [Entitic vol] 95.2 fL Invalid Interpretation Code 80.0 - 99.0 fL AH Remisol SS Monocytes (Bld) [#/Vol] 0.70 103/mcL Invalid Interpretation Code 0.09 - 1.40 10^3/mcL AH Remisol SS Monocytes/100 WBC (Bld) 11.2 % Invalid Interpretation Code 2.0 - 13.0 % AH Remisol SS Neutrophils (Bld) [#/Vol] 3.80 103/mcL Invalid Interpretation Code 2.25 - 8.10 10^3/mcL AH Remisol SS Neutrophils/100 WBC (Bld) 60.3 % Invalid Interpretation Code 50.0 - 75.0 % AH Remisol SS Platelet mean volume (Bld) [Entitic vol] 6.5 fL Invalid Interpretation Code 6.6 - 10.5 fL AH Remisol SS Platelets (Bld) [#/Vol] 357 103/mcL Invalid Interpretation Code 150 - 450 10^3/mcL AH Remisol SS RBC (Bld) [#/Vol] 5.03 106/mcL Invalid Interpretation Code 4.10 - 5.30 10^6/mcL AH Remisol SS WBC (Bld) [#/Vol] 6.30 103/mcL Invalid Interpretation Code 4.50 - 10.80 10^3/mcL AH Remisol SS LABORATORYOrdered By: Renita Clark on 07-14-2021 Appearance (U) Hazy *ABN* (07/14/21 9:03 AM) Invalid Interpretation Code AH Auto Urine SS Bacteria LM.HPF (Urine sed) [#/Area] Trace /HPF Invalid Interpretation Code Negative/HPF AH Auto Urine SS Bilirubin Ql (U) Negative (07/14/21 9:03 AM) Invalid Interpretation Code Neg-Trace AH Auto Urine SS Color (U) Yellow (07/14/21 9:03 AM) Invalid Interpretation Code AH Auto Urine SS Glucose Test strip (U) [Mass/Vol] Negative Invalid Interpretation Code Negativemg/d L AH Auto Urine SS Hemoglobin Auto test strip (U) [Mass/Vol] Small *ABN* (07/14/21 9:03 AM) Invalid Interpretation Code Neg-Trace AH Auto Urine SS Ketones Ql (U) Negative Invalid Interpretation Code Neg-Tracemg/ dL AH Auto Urine SS UA Leuk Est Negative (07/14/21 9:03 AM) Invalid Interpretation Code Negative Auto Urine SS UA Nitrite Negative (07/14/21 9:03 AM) Invalid Interpretation Code Negative Auto Urine SS UA pH 6.5 (07/14/21 9:03 AM) Invalid Interpretation Code 5.0 - 8.0 AH Auto Urine SS UA Protein Negative Invalid Interpretation Code Negativemg/d L AH Auto Urine SS UA RBC 3-5 /HPF Invalid Interpretation Code 0-2/HPF Auto Urine SS UA Spec Grav 1.020 (07/14/21 9:03 AM) Invalid Interpretation Code AH Auto Urine SS UA Specimen Type Clean Catch (07/14/21 9:03 AM) Invalid Interpretation Code AH Auto Urine SS UA Squam Epithelial 5-10 /HPF Invalid Interpretation Code 0-20/HPF Auto Urine SS UA Urobilinogen 0.2 E.U./dL Invalid Interpretation Code Auto Urine SS WBC LM.HPF (Urine sed) [#/Area] 3-5 /HPF Invalid Interpretation Code 0-5/HPF AH Auto Urine SS Vital Signs Date Time Vital Sign Value Performing Clinician Facility 11-26-2024 10:34-0400 Blood Pressure Cuff Size [facility] DO [facility] 11-26-2024 10:34-0400 Blood Pressure Location [facility] DO [facility] 11-26-2024 10:34-0400 Blood Pressure Method [facility] DO [facility] 11-26-2024 10:34-0400 Body temperature 98.6 [degF] [facility] DO [facility] 11-26-2024 10:34-0400 Diastolic Blood Pressure Non-Invasive 84 mm[Hg] [facility] DO [facility] 11-26-2024 10:34-0400 Heart rate 71 /min [facility] DO [facility] 11-26-2024 10:34-0400 Respiratory rate 16 /min [facility] DO [facility] 11-26-2024 10:34-0400 Systolic Blood Pressure Non-Invasive 123 mm[Hg] REESE OLAF DO [address] [place] [address] 11-26-2024 07:56-0400 Heart rate 77 /min REESE OLAF DO [address] [place] [address] 11-26-2024 07:45-0400 Body temperature 97.7 [degF] REESE OLAF DO [address] 11-26-2024 07:45-0400 Diastolic Blood Pressure Non-Invasive 80 mm[Hg] REESE OLAF DO [address] [place] [address] 11-26-2024 07:45-0400 Heart rate 77 /min REESE OLAF DO [address] [place] [address] 11-26-2024 07:45-0400 Respiratory rate 16 /min REESE OLAF DO [address] [place] [address] 11-26-2024 07:45-0400 Systolic Blood Pressure Non-Invasive 124 mm[Hg] REESE OLAF DO [address] [place] [address] 11-26-2024 03:46-0400 Blood Pressure Cuff Size REESE OLAF DO [address] 11-26-2024 03:46-0400 Blood Pressure Location REESE OLAF DO [address] 11-26-2024 03:46-0400 Blood Pressure Method REESE OLAF DO [address] [place] [address] 11-26-2024 03:46-0400 Body temperature 98.06 [degF] REESE OLAF DO [address] 11-26-2024 03:46-0400 Diastolic Blood Pressure Non-Invasive 75 mm[Hg] REESE OLAF DO [address] [place] [address] 11-26-2024 03:46-0400 Heart rate 74 /min REESE OLAF DO [address] [place] [address] 11-26-2024 03:46-0400 Respiratory rate 16 /min REESE OLAF DO [facility] 11-26-2024 03:46-0400 Systolic Blood Pressure Non-Invasive 118 mm[Hg] REESE OLAF DO [facility] 11-25-2024 21:10-0400 Body height 172.7 cm REESE OLAF DO [facility] 11-25-2024 21:10-0400 Body weight 104.6 kg REESE OLAF DO [facility] 11-25-2024 21:10-0400 Body weight 35.07 kg/m2 REESE OLAF DO [facility] 11-25-2024 20:11-0400 Body temperature 96.98 [degF] REESE OLAF DO [facility] 11-25-2024 20:11-0400 Heart rate 101 /min REESE OLAF DO [facility] 11-25-2024 20:11-0400 Mean blood pressure 104 mm[Hg] REESE OLAF DO [facility] 11-25-2024 19:56-0400 Heart rate 102 /min REESE OLAF DO [facility] 11-25-2024 19:56-0400 Mean blood pressure 95 mm[Hg] REESE OLAF DO [facility] 11-25-2024 19:41-0400 Heart rate 98 /min REESE OLAF DO [facility] 11-25-2024 19:41-0400 Body temperature 96.8 [degF] REESE OLAF DO [facility] 11-25-2024 19:41-0400 Mean blood pressure 84 mm[Hg] REESE OLAF DO [facility] 11-25-2024 19:35-0400 Respiratory Rate - Anes 9 br/min REESE OLAF DO [facility] 11-25-2024 19:30-0400 Respiratory Rate - Anes 11 br/min REESE OLAF DO [facility] 11-25-2024 19:25-0400 Respiratory Rate - Anes 19 br/min REESE OLAF DO [facility] 11-25-2024 19:20-0400 Body temperature 99.97 [degF] REESE OLAF DO [facility] 11-25-2024 19:15-0400 Body temperature 100.06 [degF] REESE OLAF DO [address] [place] [address] 11-25-2024 19:10-0400 Body temperature 100.24 [degF] REESE OLAF DO [address] [place] [address] 11-25-2024 17:12-0400 Body temperature 98.24 [degF] REESE OLAF DO [address] [place] [address] 11-25-2024 14:34-0400 Body height 172.7 cm REESE OLAF DO [address] [place] [address] 11-25-2024 14:34-0400 Body weight 104.6 kg REESE OLAF DO [facility] 11-25-2024 09:43-0400 Body weight 104 kg REESE OLAF DO [facility] 05-20-2024 09:32-0400 Body height 174 cm Lia Phoenix PA-C Work Phone: [facility] 05-20-2024 09:32-0400 Body mass index (BMI) [Ratio] 35.36 kg/m2 Lia Phoenix PA-C Work Phone: [facility] 05-20-2024 09:32-0400 Body weight 107.05 kg Lia Phoenix PA-C Work Phone: [facility] 05-20-2024 09:32-0400 Diastolic blood pressure 82 mm[Hg] Lia Phoenix PA-C Work Phone: [facility] 05-20-2024 09:32-0400 Systolic blood pressure 126 mm[Hg] Lia Phoenix PA-C Work Phone: [facility] 12-15-2023 12:08-0400 Body temperature 97.9 [degF] Tish London PA-C Work Phone: [facility] 12-15-2023 12:08-0400 Diastolic blood pressure 84 mm[Hg] Tish Martikins PA-C Work Phone: [facility] 12-15-2023 12:08-0400 Heart rate 82 /min Tish Martikins PA-C Work Phone: [facility] 12-15-2023 12:08-0400 Respiratory rate 20 /min Tish London PA-C Work Phone: [facility] 12-15-2023 12:08-0400 SaO2% (BldA) [Mass fraction] 98 % Tish London PA-C Work Phone: [facility] 12-15-2023 12:08-0400 Systolic blood pressure 130 mm[Hg] Tish London PA-C Work Phone: [facility] 03-08-2023 08:42-0400 Body height 174 cm Lia Phoenix PA-C Work Phone: [facility] 03-08-2023 08:42-0400 Body weight 106.14 kg Lia Phoenix PA-C Work Phone: [facility] 03-08-2023 08:42-0400 Diastolic blood pressure 76 mm[Hg] Lia Phoenix PA-C Work Phone: [facility] 03-08-2023 08:42-0400 Systolic blood pressure 146 mm[Hg] Lia Phoenix PA-C Work Phone: [facility] 03-05-2022 13:27-0400 Body height 174 cm Angelica Velasquez MD Work Phone: [facility] 03-05-2022 13:27-0400 Body weight 104.78 kg Angelica Velasquez MD Work Phone: [facility] 03-05-2022 13:27-0400 Diastolic blood pressure 80 mm[Hg] Angelica Velasquez MD Work Phone: [facility] 03-05-2022 13:27-0400 Systolic blood pressure 120 mm[Hg] Angelica Velasquez MD Work Phone: [facility] 08-28-2021 20:15-0500 Diastolic blood pressure 78 mm[Hg] MALKA POZO MD [facility] 08-28-2021 20:15-0500 Heart rate 89 /min MALKA POZO MD [facility] 08-28-2021 20:15-0500 Reason For Taking VItal Signs MAKLA POZO MD [facility] 08-28-2021 20:15-0500 Respiratory rate 18 /min MALKA POZO MD [facility] 08-28-2021 20:15-0500 Systolic blood pressure 124 mm[Hg] MALKA POZO MD [facility] 08-28-2021 18:29-0500 Body temperature 97.7 [degF] MALKA POZO MD [facility] 08-28-2021 18:29-0500 Diastolic blood pressure 103 mm[Hg] MALKA POZO MD [facility] 08-28-2021 18:29-0500 Heart rate 101 /min MALKA POZO MD [facility] 08-28-2021 18:29-0500 Respiratory rate 18 /min MALKA POZO MD [facility] 08-28-2021 18:29-0500 Systolic blood pressure 154 mm[Hg] MALKA POZO MD [facility] 07-15-2021 23:19-0500 Body temperature 97.16 [degF] TAVON VELASQUEZ [facility] [facility]21 23:19-0500 Body weight 105.9 kg TAVON VELASQUEZ MD [facility] 07-15-2021 23:19-0500 Diastolic blood pressure 101 mm[Hg] TAVON VELASQUEZ MD [facility] 07-15-2021 23:19-0500 Heart rate 90 /min TAVON VELASQUEZ MD [facility] 07-15-2021 23:19-0500 Respiratory rate 18 /min TAVON VELASQUEZ MD [facility] 07-15-2021 23:19-0500 Systolic blood pressure 158 mm[Hg] TAVON VELASQUEZ MD [facility] 07-14-2021 12:14-0500 Diastolic blood pressure 84 mm[Hg] NOLBERTO MELLO MD [facility] 07-14-2021 12:14-0500 Heart rate 65 /min NOLBERTO MELLO MD [facility] 07-14-2021 12:14-0500 Respiratory rate 18 /min NOLBERTO MELLO MD [facility] 07-14-2021 12:14-0500 Systolic blood pressure 131 mm[Hg] NOLBERTO MELLO MD [facility] 07-14-2021 08:01-0500 Body temperature 96.98 [degF] NOLBERTO MELLO MD [facility] 07-14-2021 08:01-0500 Body weight 107 kg NOLBERTO MELLO MD [facility] 07-14-2021 08:01-0500 Diastolic blood pressure 120 mm[Hg] NOLBERTO MELLO MD [facility] 07-14-2021 08:01-0500 Heart rate 89 /min NOLBERTO MELLO MD [facility] 07-14-2021 08:01-0500 Respiratory rate 16 /min NOLBERTO MELLO MD [facility] 07-14-2021 08:01-0500 Systolic blood pressure 172 mm[Hg] NOLBERTO MELLO MD [facility] Encounters Encounter Date Encounter Type Care Provider Facility Start: 12-07-2024 End: 12-07-2024 ambulatory REESE MAYERS DO Facility:A Start: 12-07-2024 End: 12-07-2024 Patient encounter procedure REESE MAYERS DO [facility] Start: 11-25-2024 End: 11-26-2024 Emergency department patient visit REESE MAYERS DO Facility:A Start: 11-25-2024 End: 11-26-2024 Observation REESE MAYERS DO [facility] Start: 11-23-2024 End: 11-23-2024 Emergency department patient visit MELISA SANTOS MD Facility:A Start: 06-06-2024 End: 06-07-2024 Emergency department patient visit LYNSEY PEREZ MSN, IMPORT COORDINATOR Facility:A Start: 05-22-2024 End: 05-22-2024 ambulatory Lia Phoenix PA-C Work Phone: [employer] Comment on above: re: yeast medicine Start: 05-20-2024 End: 05-20-2024 Patient encounter procedure Lia Phoenix PA-C Work Phone: [employer] Comment on above: Women's annual routi ne gynecological examination (Primary Dx); Screening for malignant neoplasm of cervix; Breast cancer screening by mammogram; Encounter for colorectal cancer screening; Screening for osteoporosis; Encounter for routine checking of intrauterine contraceptive device (IUD); Encounter for surveillance of contraceptive pills; Perimenopausal; Menopause Start: 04-23-2024 End: 04-23-2024 MyChart Refill CP Lia Phoenix PA-C Work Phone: [employer] Comment on above: Medication Refill Ap proved Start: 12-15-2023 End: 12-15-2023 ambulatory BILLIE RAYMOND AVILACOSMO Facility:[id number] Start: 12-15-2023 End: 12-15-2023 Patient encounter procedure Tish London PA-C Work Phone: [facility] Comment on above: Lower respiratory tr act infection (Primary Dx) Start: 03-11-2023 ambulatory Lia Phoenix PA-C Work Phone: [employer] Comment on above: re: paper for work Start: 03-08-2023 End: 03-08-2023 Patient encounter procedure Lia Mojgan Phoenix PA-C Work Phone: [employer] Comment on above: Women's annual routi ne gynecological examination (Primary Dx); Screening for malignant neoplasm of cervix; Breast cancer screening by mammogram; Encounter for colorectal cancer screening; Screening for osteoporosis; Menopause; Encounter for routine checking of intrauterine contraceptive device (IUD); PCOS (polycystic ovarian syndrome); Encounter for surveillance of contraceptive pills; Perimenopausal; Urinary frequency Start: 10-18-2022 End: 10-18-2022 Emergency department patient visit KAIT DOUGLAS PA-C Facility:A Start: 03-05-2022 End: 03-05-2022 Female genitalia finding Angelica Velasquez MD Work Phone: [employer] Start: 03-05-2022 End: 03-05-2022 Patient encounter procedure Angelica Velasquez MD Work Phone: [employer] Comment on above: Gynecologic exam nor mal (Primary Dx); Cervical cancer screening; Breast cancer screening by mammogram; Screening for osteoporosis; Menopause; Encounter for surveillance of contraceptive pills Start: 08-28-2021 End: 08-28-2021 Emergency department patient visit MALKA POZO MD [facility] Start: 07-15-2021 End: 07-16-2021 Emergency department patient visit TAVON VELASQUEZ MD [facility] Start: 07-14-2021 End: 07-14-2021 Emergency department patient visit NOLBERTO MELLO MD [facility] Procedures Date Procedure Procedure Detail Performing Clinician Start: 11-25-2024 Laparoscopic cholecystectomy REESE MAYERS DO Start: 12-06-2017 Mammography Angelica fitzgerald MD Work Phone: Excision of left kidney CAYDEN MELLO MD Comment on above: 2008 Plan of Treatment Date Care Activity Detail Author Start: 03-08-2028 Screening for malign ant neoplasm of cervix Pap Testing [facility] Start: 03-05-2027 PAP TESTING PAP TESTING [facility] Start: 06-09-2026 HPV TESTING HPV TESTING [facility] Start: 06-09-2026 PAP TESTING PAP TESTING [facility] Start: 06-09-2026 Screening for malign ant neoplasm of cervix HPV Testing [facility] Start: 05-24-2025 End: 05-24-2025 Patient encounter procedure 05/24/2025 8:45 AM EDT Office Visit [employer] [address] [place] [address] Lia Phoenix PA-C [address] [place], [place] [id number] annual exam [employer] Comment on above: annual exam Start: 05-20-2025 Screening for malign ant neoplasm of cervix Cervical Cancer Screening [facility] Start: 05-20-2025 Screening for malign ant neoplasm of colon [facility] Start: 12-16-2024 Urine microalbumin profile [facility] Start: 05-20-2024 End: 08-19-2024 Follitropin [Units/volume] in Serum or Plasma FOLLICLE STIMULATING HORMONE Lab Routine Perimenopausal Expected: 05/20/2024, Expires: 08/19/2024 [facility] Comment on above: Expected: 05/20/2024 , Expires: 08/19/2024 Start: 05-08-2024 End: 05-08-2024 Patient encounter procedure 05/08/2024 9:00 AM EDT Office Visit [facility] [address] [place] [address] Lia Phoenix PA-C [address] [place], [place] [id number] Annual [employer] [facility] Comment on above: Annual Start: 03-29-2024 Covid-19 Vaccine ( season) Covid-19 Vaccine ( season) [facility] Start: 03-29-2024 Influenza vaccination [facility] Start: 03-13-2024 End: 03-13-2024 Patient encounter procedure 03/13/2024 8:45 AM EDT Office Visit [facility] [address] [place] [address] Lia Phoenix PA-C [address] [place] [address] Annual [facility] Comment on above: Annual Start: 03-08-2024 COLORECTAL CANCER SCREENING COLORECTAL CANCER SCREENING [facility] Start: 03-08-2024 FECAL OCCULT BLOOD FECAL OCCULT BLOO D [facility] Start: 03-08-2024 Screening for malign ant neoplasm of cervix Cervical Cancer Screening [facility] Start: 03-08-2024 Screening for malign ant neoplasm of colon [facility] Start: 03-29-2023 Covid-19 Vaccine ( season) Covid-19 Vaccine ( season) [facility] Start: 03-29-2023 Influenza vaccination INFLUENZA (#1) [facility] Start: 03-05-2023 COLORECTAL CANCER SCREENING COLORECTAL CANCER SCREENING [facility] Start: 03-05-2023 FECAL OCCULT BLOOD FECAL OCCULT BLOO D [facility] Start: 03-29-2022 Influenza vaccination INFLUENZA (#1) [facility] Start: 10-15-2021 DIABETES SCREEN DIABETES SCREEN [facility] Start: 10-15-2021 Diabetes Screening Diabetes Screenin g [facility] Start: 2021 SHINGRIX VACCINE (1 of 2) SHINGRIX VACCINE (1 of 2) [facility] Start: 12-06-2018 Mammography MAMMOGRAM [facility] Start: 12-06-2018 Screening for malign ant neoplasm of breast Mammogram Screening [facility] Start: 2016 COLOGUARD (FIT-DNA) COLOGUARD (FIT-D NA) [facility] Start: 2016 Colonoscopy COLONOSCOPY [facility] Start: [address] COLONOGRAPHY [facility] Start: 2016 Lipid panel Lipid Screening 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 Start: 1989 Hepatitis C screening Hepatitis C Sc [facility] Start: 1989 SERUM CREATININE SERUM CREATININE Cl [facility] Start: 01-29-1972 COVID-19 VACCINE (#1) COVID-19 VACCI NE (#1) [facility] Start: 1971 HEPATITIS B (1 of 3 - 3-dose series) HEPATITIS B (1 of 3 - 3-dose series) [facility] DBT Breast - bilater al screening ALVIN SCREENING W [facility] Radiology Routine Breast cancer screening by mammogram 1 Occurrences starting 05/20/2024 [facility] Comment on above: 1 Occurrences starti ng 05/20/2024 End: 04-05-2023 Dxa bone density study 1/> sites axial skel DXA-AXIAL SKELETON Radiology Routine Screening for osteoporosis Menopause 1 Occurrences starting 03/05/2022 until 04/05/2023 [facility] Work Phone: Comment on above: 1 Occurrences starti ng 03/05/2022 until 04/05/2023 End: 06-19-2025 DXA Skeletal system.axial Views for bone density DXA-AXIAL SKELETON Radiology Routine Screening for osteoporosis Menopause 1 Occurrences starting 05/20/2024 until 06/19/2025 [facility] Comment on above: 1 Occurrences starti ng 05/20/2024 until 06/19/2025 DXA-AXIAL SKELETON DXA-AXIAL SKE LETON Radiology Routine Screening for osteoporosis Menopause 1 Occurrences starting 03/08/2023 [employer] Phone: Comment on above: 1 Occurrences starti ng 03/08/2023 ALVIN SCREENING ALVIN SCREENING Ra diology Routine Breast cancer screening by mammogram 1 Occurrences starting 03/08/2023 [employer] Phone: Comment on above: 1 Occurrences starti ng 03/08/2023 End: 04-04-2023 ALVIN SCREENING W HERLINDA ALVIN SCREENING W [facility] Radiology Routine Gynecologic exam normal Breast cancer screening by mammogram 1 Occurrences starting 03/05/2022 until 04/04/2023 [employer] Phone: Comment on above: 1 Occurrences starti ng 03/05/2022 until 04/04/2023 PAP REFLEX HPV MRNA WHEN ASCUS PAP REFLEX HPV MRNA WHEN ASCUS Lab Routine Gynecologic exam normal Cervical cancer screening Ordered: 03/05/2022 [employer] Phone: Comment on above: Ordered: 03/05/2022 PAP REFLEX HPV MRNA WHEN ASCUS PAP REFLEX HPV MRNA WHEN ASCUS Lab Routine Women's annual routine gynecological examination Screening for malignant neoplasm of cervix Ordered: 03/08/2023 [employer] Phone: Comment on above: Ordered: 03/08/2023 PAP REFLEX HPV MRNA WHEN ASCUS PAP REFLEX HPV MRNA WHEN ASCUS Lab Routine Screening for malignant neoplasm of cervix Ordered: 05/20/2024 [employer] Phone: Comment on above: Ordered: 05/20/2024 End: 04-04-2023 Screening mammography bi 2-view breast inc cad ALVIN SCREENING Radiology Routine Gynecologic exam normal Breast cancer screening by mammogram 1 Occurrences starting 03/05/2022 until 04/04/2023 [employer] Phone: Comment on above: 1 Occurrences starti ng 03/05/2022 until 04/04/2023 [facility] Immunizations Immunization Date Immunization Notes Care Provider Kt mehta 09-21-2019 influenza virus vaccine, unspecified formulation Tish London PA-C Work Phone: [facility] 12-16-2014 tetanus toxoid, redu kishan diphtheria toxoid, and acellular pertussis vaccine, adsorbed Angelica Velasquez MD Work Phone: [facility] Work Phone: 07-08-2003 influenza nasal, unspecified formulation Lia Phoenix PA-C Work Phone: [facility] 07-08-2003 influenza virus vaccine, unspecified formulation NOLBERTO MELLO MD [facility] Payers Date Payer Category Payer Unknown [id number] 2023 Private Health Insurance [id number] 2023 Private Health Insurance [id number] 2022 Private Health Insurance [id number] 2002 Unknown [id number] 2002 Unknown [id number] 1971 Unknown [id number] 1971 Unknown [id number] 1971 Unknown [id number] 1971 Unknown [id number] 1971 Unknown [id number] 1971 Unknown [id number] Social History Date Type Detail Facility Start: 11-20-2018 End: 11-23-2024 Never smoked tobacco (finding) [facility] Sex Assigned At Female [facility] Start: 03-05-2022 Tobacco use and exposure Smoke less tobacco non-user [facility] Start: 03-05-2022 End: 05-20-2024 Alcohol intake Current non-drinker of alcohol (finding) [facility] Start: 1970 Sex Assigned At Not on file [facility] Start: 03-08-2023 End: 05-20-2024 History of Social function [facility] Start: 03-08-2023 End: 05-20-2024 Tobacco use panel [facility] Adult Depression Screening Assessment 0 [facility] Sexual Orientation [facility] Start: 06-22-2019 Sex Female (finding) [facility] Functional Status Date Assessment Result Facility 11-26-2024 Functional Status Room check performed [facility] 11-26-2024 Functional Status Breakfast Percent 50 [facility] 11-26-2024 Functional Status [facility] 11-26-2024 Functional Status [facility] 11-26-2024 Functional Status [facility] 11-26-2024 Functional Status [facility] 11-25-2024 Functional Status Sensory Deficits None A [facility] 11-25-2024 Functional Status bilateral knee high christen lied/on [facility] 11-25-2024 Functional Status [facility] 11-25-2024 Functional Status Independent [facility] Mental Status Date Assessment Result Facility 11-26-2024 Mental Status Oriented x 4 [facility] 11-25-2024 Mental Status [facility] Clinical Notes 06-09-2021 to 11-26-2024 Note Date & Type Note Facility 11-26-2024 Pastoral care Progress note Pastoral Care Note Entered On: 11/26/2024 13:15 EDT Performed On: 11/26/2024 13:14 EDT by Jony Elizabeth Pastoral Care Type of Pastoral Visit : Initial visit Spiritual Care Visit Initiated by : Consult/Referral Spiritual Care Reason for Visit : General Pastoral Care Referral From : Nurse Spiritual Care Intervention : Discharged Before Seen Jony Elizabeth - 11/26/2024 13:14 EDT Digitally Signed by Jony Elizabeth on 11/26/2024 01:14 PM [facility] 11-26-2024 Hospital Discharge instructions Patient Education 11/26/2024 10:24:09 Cholecystitis, [id number] Cholecystitis Cholecystitis is irritation and swelling (inflammation) of the gallbladder. The gallbladder is an organ that is shaped like a pear. It is under the liver on the right side of the body. This organ stores bile. Bile helps the body break down (digest) the fats in food. This condition can occur all of a sudden. It needs to be treated. What are the causes? This condition may be caused by stones or lumps that form in the gallbladder (gallstones). Gallstones can block the tube (duct) that carries bile out of your gallbladder. Other causes are: Damage to the gallbladder due to less blood flow. Germs in the bile ducts. Scars or kinks in the bile ducts. Abnormal growths (tumors) in the liver, pancreas, or gallbladder. What increases the risk? You are more likely to develop this condition if: You have sickle cell disease. You take control pills. You use estrogen. You have alcoholic liver disease. You have liver cirrhosis. You are being fed through a vein. You are very ill. You do not eat or drink for a long time. This is also called fasting. You are overweight (obese). You lose weight too fast. You are . You have high levels of fat in the blood (triglycerides). You have irritation and swelling of the pancreas (pancreatitis). What are the signs or symptoms? Symptoms of this condition include: Pain in the belly (abdomen). Pain is often in the upper right area of the belly. Tenderness or bloating in the belly. Feeling sick to your stomach (nauseous). Throwing up (vomiting). Fever. Chills. How is this diagnosed? This condition may be diagnosed with a medical history and exam. You may also have other tests, such as: Imaging tests. This may include: ?Ultrasound. ?CT scan of the belly. ?Nuclear scan. This is also called a HIDA scan. This scan lets your doctor see the bile as it moves in your body. ?MRI. Blood tests. These are done to check: ?Your blood count. The white blood cell count may be higher than normal. ?How well your liver works. How is this treated? This condition may be treated with: Surgery to take out your gallbladder. Antibiotic medicines to treat illnesses caused by germs. Going without food for some time. Giving fluids through an IV tube. Medicines to treat pain or throwing up. Follow these instructions at home: If you had surgery, follow instructions from your doctor about how to care for yourself after you go home. Medicines Take [id number] and prescription medicines only as told by your doctor. If you were prescribed an antibiotic medicine, take it as told by your doctor. Do not stop taking it even if you start to feel better. General instructions Follow instructions from your doctor about what to eat or drink. Do not eat or drink anything that makes you sick again. Do not lift anything that is heavier than 10 lb (4.5 kg) until your doctor says that it is safe. Do not use any products that contain nicotine or tobacco, such as cigarettes and e-cigarettes. If you need help quitting, ask your doctor. Keep all follow-up visits as told by your doctor. This is important. Contact a doctor if: You have pain and your medicine does not help. You have a fever. Get help right away if: Your pain moves to: ?Another part of your belly. ?Your back. Your symptoms do not go away. You have new symptoms. Summary Cholecystitis is swelling and irritation of the gallbladder. This condition may be caused by stones or lumps that form in the gallbladder (gallstones). Common symptoms are pain in the belly. You may feel sick to your stomach and start throwing up. You may also have a fever and chills. This condition may be treated with surgery to take out the gallbladder. It may also be treated with medicines, fasting, and fluids through an IV tube. Follow what you are told about eating and drinking. Do not eat things that make you sick again. This information is not intended to replace advice given to you by your health care provider. Make sure you discuss any questions you have with your health care provider. Document Released: 07/03/2012 Document Revised: 11/21/2018 Document Reviewed: 11/21/2018 Pets are family too Patient Education 2020 [email or web address]. Follow Up Care 11/25/2024 09:41:50 With:REESE MAYERS DO, Surgery Address: [address] [place] [address], [address] [place] [phone] When:12/07/2024 09:30:00 [facility] 11-26-2024 Discharge summary Date of Service 11/26/2024 Discharge Diagnosis 1 - Acute cholecystitis (K81.0 - ICD-10-CM) 2 - Postoperative pain (G89.18 - ICD-10-CM) Hospital Course This patient was a 54-year-old female who presented to the [facility] emergency department on 11/25/2024 with ongoing complaints of right upper quadrant abdominal pain. A workup was completed in the emergency department and she was found to have evidence of acute cholecystitis. She was transferred to [facility] for definitive management. Later in the evening on 11/25/2024 she underwent a laparoscopic cholecystectomy with Dr. Mayers. Postoperatively, a diet was initiated and advanced as tolerated. On 11/26/2024 she met criteria for discharge home. All discharge instructions were reviewed at the bedside with the patient by Dr. Mayers and myself. She will be evaluated in the outpatient general surgery office in 2 weeks for her first postoperative visit. She is to call the office with any questions or concerns. She voiced understanding and was in agreement with the plan of care. Allergies [facility] Procedures 11/25/2024: Laparoscopic cholecystectomy Consults Consult to Anesthesia - Ordered -- 11/25/24 14:11:00 EDT, surgery pending, for OR today Consult to Spiritual Care Team (Consult to Pastoral Care) - Ordered -- 11/25/24 21:15:49 EDT Imaging Results and Diagnostics US Abdomen Limited Result Date: November 25, 2024 Verified By: GARLAND TOBIAS MD CLINICAL STATEMENT: IMPRESSION: Gallstone with borderline gallbladder wall thickening and negative sonographic Lanier's sign. Findings are equivocal for the possibility of acute cholecystitis. If strongly suspected, consider HIDA scan. Physical Exam Vitals and Measurements T: 36.5 C (Oral) TMIN: 36 C (Temporal Artery) TMAX: 37.91 C HR: 77 (Apical) RR: 16 BP: 124/80 SpO2: 97% HT: 172.7 cm WT: 104.6 kg BMI: 35.07 Weight Dosing Weight: 104.6 kg (11/25/24) Dosing Weight: 104.6 kg (11/25/24) General: Awake, alert and oriented x4. In no apparent distress. Able to answer questions appropriately and speak in full sentences. Supine in bed. HEENT: Sclera anicteric. Heart: S1 and S2 present. Lungs: Chest rise symmetrical. Respirations unlabored. Abdomen: Soft and tender. Nondistended. No rigidity or guarding noted. Incision sites approximated. Extremities: Freely moving. Psychiatric: Calm and cooperative. Pending Labs and Studies None Code Status Code Status - Ordered -- 11/25/24 14:11:00 EDT, Full Code, Constant Order Admission Date 11/25/2024 Discharge Date 11/26/2024 Patient Instructions Postoperative Activity/Wound Care Recommendations: No lifting or pushing objects greater than 10-15 pounds and no strenuous activity. Walking, using the stairs, and riding in a car are acceptable forms of activity and are encouraged in the postoperative period. Incentive spirometry use and deep breathing/coughing exercises are also encouraged after discharge to prevent respiratory complications such as pneumonia and blood clots. No driving while taking narcotic pain medication. You may shower. No tub bathing or soaking your incisions, and no pool/hot tub use until cleared by your surgeon. Wash your incisions daily with a mild soap and water and pat dry. Postoperative Medication Recommendations/Education: It is recommended that you alternate between 650-1000 mg of Tylenol and 400-600 mg Motrin (Advil or Ibuprofen) every 6 hours as needed to optimize pain control after surgery. A temporary prescription for a narcotic pain medication has been provided to you postoperatively and should only be used for breakthrough pain as narcotics increase the risk for constipation, dependency, overdose, and respiratory depression. Constipation after surgery is a very common concern for patients after discharge from the hospital. Patients are encouraged to take over the counter stool softeners (such as Colace) and over the counter laxatives (Miralax) as needed for constipation. Additional medications that can be taken for postoperative constipation include milk of magnesia, Metamucil, and Senokot. OARRS Report I have reviewed the [place] Automated Rx Reporting System (OARRS) report for this patient for refill pattern and other prescriber involvement as part of the appropriate surveillance for the provision of acute and chronic controlled medications. The report was requested and reviewed on the date of this entry, and was considered in the prescribing process. Patient has been assessed using the Opioid Risk Tool in the setting of acute pain. The patient has been instructed to use non-opioid analgesic therapy first and if that is not effective for reducing pain, a temporary prescription for an opioid analgesic has been provided. Benefits and risks, such as dependency, adverse side effects, and overdose discussed. Medications New Prescription acetaminophen (Tylenol 325 mg oral capsule)650 Milligram by mouth every 4 hours as needed as needed for pain. oxyCODONE (oxyCODONE 5 mg oral tablet ( IMMEDIATE release ))1 tab(s) by mouth every 6 hours as needed as needed for pain for 3 Days. Refills: 0. Changed ethinyl estradiol-norethindrone (Lo Loestrin Fe oral tablet)every day. Unchanged metoprolol (metoprolol succinate 25 mg oral TABLET extended release)1 tab(s) by mouth once a day. Do not crush or chew (controlled release). Refills: 0. omeprazole (omeprazole 40 mg oral delayed release capsule)1 cap by mouth daily at bedtime for 30 Days. Refills: 0. ondansetron (ondansetron 4 mg oral tablet, disintegrating)1 tab(s) by mouth every 8 hours as needed Nausea/Vomiting for 5 Days. Refills: 0. sucralfate (sucralfate 1 g oral tablet)1 tab(s) Oral 30 minutes before meals and bedtime. Refills: 0. Follow Up Follow Up with REESE MAYERS DO, Surgery When:12/07/2024 09:30 AM EDT Where:[address] [facility], [address] [place] [address]- [phone] Follow Up Appointments No qualifying data available. Follow Up Labs/Studies Discharge Labs No Follow-up Labs Discharge Studies No Follow-up Studies Discharge Diet Discharge Diet - Ordered -- Type of Diet: Regular, Low-fat diet, 11/26/24 10:06:00 EDT Discharge Activity Discharge Activity - Ordered -- May Shower, No lifting anything greater than 10-15 pounds and no strenuous activity. No driving while taking narcotic pain medication and for a minimum of 3-5 days postoperatively., 11/26/24 10:06:00 EDT Condition on Discharge Stable Discharge Disposition Home Information Provided To Patient and nursing staff Time Spent 20 minutes Digitally Signed by RAAD REDDY on 11/26/2024 10:17 AM [facility] 11-26-2024 Note Discharge Instructions Thank you for allowing [facility] to assist you with your healthcare needs. The following is important discharge information regarding your hospital visit. Your Care Team LYNSEY PEREZ, IMPORT COORDINATOR Your Diagnosis Acute cholecystitis Gallstone History of nephrectomy, left Leukocytosis Postoperative pain What to do next Instructions From Your Doctor Postoperative Activity/Wound Care Recommendations: No lifting or pushing objects greater than 10-15 pounds and no strenuous activity. Walking, using the stairs, and riding in a car are acceptable forms of activity and are encouraged in the postoperative period. Incentive spirometry use and deep breathing/coughing exercises are also encouraged after discharge to prevent respiratory complications such as pneumonia and blood clots. No driving while taking narcotic pain medication. You may shower. No tub bathing or soaking your incisions, and no pool/hot tub use until cleared by your surgeon. Wash your incisions daily with a mild soap and water and pat dry. Postoperative Medication Recommendations/Education: It is recommended that you alternate between 650-1000 mg of Tylenol and 400-600 mg Motrin (Advil or Ibuprofen) every 6 hours as needed to optimize pain control after surgery. A temporary prescription for a narcotic pain medication has been provided to you postoperatively and should only be used for breakthrough pain as narcotics increase the risk for constipation, dependency, overdose, and respiratory depression. Constipation after surgery is a very common concern for patients after discharge from the hospital. Patients are encouraged to take over the counter stool softeners (such as Colace) and over the counter laxatives (Miralax) as needed for constipation. Additional medications that can be taken for postoperative constipation include milk of magnesia, Metamucil, and Senokot. 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 No driving while taking narcotic pain medication and for a minimum of 3-5 days postoperatively., 11/26/24 10:06:00 EDT Discharge Diet - Ordered -- Type of Diet: Regular, Low-fat diet, 11/26/24 10:06:00 EDT The Following Equipment Has Been Ordered for You Discharge Home Equipment Discharge Wound Care - Ordered -- Leave surgical glue in place and allow it to fall off on its own. Shower only; wash incision sites with soap and water and pat dry. No tub bathing or indoor pool/hot tub use., 11/26/24 10:06:00 EDT The Following Treatments Have Been Ordered for You Discharge Labs No qualifying data available. Discharge Radiology No qualifying data available. Other Therapies No qualifying data available. Post Acute Orders No qualifying data available. Someone Will Contact You Regarding These Home Health Referrals No home referrals have been ordered for you. No one will call you. Allergies NKA Medications Please ask your primary doctor or pharmacist before taking any other medication not listed, including over the counter drugs, herbal medications, vitamins and or supplements as they may interact with your home medications. What How Much When Why Instructions Last Dose New acetaminophen (Tylenol 325 mg oral capsule) 650 Milligram by mouth Every 4 hours as needed for as needed for pain New oxyCODONE (oxyCODONE 5 mg oral tablet ( IMMEDIATE release )) 1 tab(s) by mouth Every 6 hours as needed for as needed for pain Postoperative pain Duration: 3 Days Pickup at [facility]/pharmacy #[id number] Changed ethinyl estradiol-norethindrone (Lo Loestrin Fe oral tablet) Every day Unchanged metoprolol (metoprolol succinate 25 mg oral TABLET extended release) 1 tab(s) by mouth Once a day Do not crush or chew (controlled release) Unchanged omeprazole (omeprazole 40 mg oral delayed release capsule) 1 cap by mouth Daily at bedtime Duration: 30 Days Unchanged ondansetron (ondansetron 4 mg oral tablet, disintegrating) 1 tab(s) by mouth Every 8 hours as needed for Nausea/Vomiting Duration: 5 Days Unchanged sucralfate (sucralfate 1 g oral tablet) See instructions 1 tab(s) Oral 30 minutes before meals and bedtime Pharmacy Information [facility]/pharmacy #[id number]: [address], [place] [phone] Please take this list to your next doctor s visit. Bring all medications you take, including over the counter medications, herbals and other supplements with you to your doctor s visit. Patients and families are reminded to discard old lists and to update any records with all medication providers or retail pharmacies. Medication Leaflets oxycodone (ox i KOE done) Oxaydo, OxyCONTIN, Roxicodone, RoxyBond, Xtampza ER What is the most important information I should know about oxycodone? MISUSE OF OPIOID MEDICINE CAN CAUSE ADDICTION, OVERDOSE, OR . Fatal side effects may occur if you also drink alcohol or use other drugs that cause drowsiness or slow breathing. Using opioid medicine during may cause life-threatening withdrawal symptoms in the . What is oxycodone? Oxycodone is an opioid pain medication used to treat moderate to severe pain. Oxycodone is usually given after other treatments did not work or were not tolerated. Extended-release oxycodone is for ajtrau-dbw-kajpj treatment of severe and chronic pain that requires longer treatment. This medicine is not for use on an as-needed basis. Oxycodone may also be used for purposes not listed in this medication guide. What should I discuss with my healthcare provider before taking oxycodone? You should not use oxycodone if you are allergic to it, or if you have severe asthma, breathing problems or a stomach or bowel obstruction (including paralytic ileus). Tell your doctor if you have ever had: other breathing problems, sleep apnea (breathing that stops during sleep); a head injury, brain tumor, high pressure inside the skull, or seizures, drug or alcohol addiction, or mental illness; if you have used an MAO inhibitor in the past 14 days, such as isocarboxazid, linezolid, methylene blue injection, phenelzine, or tranylcypromine; urination problems, problems with your gallbladder, pancreas, thyroid, or adrenal gland; or liver or kidney disease. Most forms of oxycodone are not approved for use in people under 18 years old. The extended-release tablets should not be given to a child younger than 11 years old. Tell your doctor if you also use stimulant medicine, opioid medicine, herbal products, or medicine for depression, mental illness, Parkinson's disease, migraine headaches, serious infections, or prevention of nausea and vomiting. An interaction with oxycodone could cause a serious condition called serotonin syndrome. May harm an unborn baby. Tell your doctor if you are or plan to become . If you use oxycodone during , your baby could be born with life-threatening withdrawal symptoms, and may need medical treatment for several weeks. Do not breastfeed. Oxycodone in breast milk can cause life-threatening side effects in a nursing baby. Long-term oxycodone may affect fertility in men or women. could be harder to achieve while either parent is using this medicine. How should I take oxycodone? Follow the directions on your prescription label and read all medication guides or instruction sheets. Never use oxycodone in larger amounts, or for longer than prescribed. Tell your doctor if you feel an increased urge to use more of this medicine. Never share opioid medicine with another person, especially someone with a history of drug addiction. MISUSE CAN CAUSE ADDICTION, OVERDOSE, OR . Keep the medicine where others cannot get to it. Selling or giving away this medicine is against the law. Never crush a pill or use the liquid to inhale the mixture or inject it into your vein. This could result in . Your dose needs may change if you switch to a different brand, strength, or form of this medicine. Avoid medication errors by using exactly as directed on the label, or as prescribed by your doctor. Stop taking all other rirfds-ffm-nnbvc opioid pain medicines when you start taking extended-release oxycodone. Swallow the extended-release forms whole to avoid exposure to a potentially fatal overdose. Do not crush, chew, break, open, or dissolve. Take the extended-release capsules with food. Read and carefully follow the instructions for use on how to prepare and take this medicine if you cannot swallow extended release capsules whole or you use a feeding tube. Ask your doctor or pharmacist if you don't understand these instructions. Measure liquid medicine with the supplied measuring device (not a kitchen spoon). You may be given other medications to help prevent or treat certain side effects. You may have withdrawal symptoms if you stop using oxycodone suddenly. Ask your doctor before stopping the medicine. Store at room temperature away from moisture and heat. Keep your medicine in a place where no one can use it improperly. Do not keep leftover medicine. Just one dose can cause in someone using it accidentally or improperly. Ask your pharmacist about a drug take-back program, or flush the unused medicine down the toilet. What happens if I miss a dose? Since oxycodone is used for pain, you are not likely to miss a dose. Skip any missed dose if it is almost time for your next dose. Do not use two doses at one time. What happens if I overdose? Seek emergency medical attention or call the Poison Help line at . An overdose can be fatal, especially in a child or person using opioid medicine without a prescription. Your doctor may recommend you get naloxone (a medicine to reverse an opioid overdose) and keep it with you at all times. A person caring for you can give the naloxone if you stop breathing or don't wake up. Your caregiver must still get emergency medical help and may need to perform CPR (cardiopulmonary resuscitation) on you while waiting for help to arrive. Anyone can buy naloxone from a pharmacy or local health department. Make sure any person caring for you knows where you keep naloxone and how to use it. What should I avoid while taking oxycodone? Do not drink alcohol or any products that contain alcohol. Dangerous side effects or could occur. Avoid driving or hazardous activity until you know how this medicine will affect you. Dizziness or drowsiness can causing falls, accidents, or severe injuries. Also avoid getting up too fast from a sitting or lying position, or you may feel dizzy. What are the possible side effects of oxycodone? Get emergency medical help if you have signs of an allergic reaction: hives, difficult breathing, swelling of your face, lips, tongue, or throat. Opioid medicine can slow or stop your breathing, and may occur, especially if you drink alcohol or use other drugs that cause drowsiness or slow breathing. A person caring for you should give naloxone and/or seek emergency medical attention if you have slow breathing with long pauses, blue colored lips, or if you are hard to wake up. Call your doctor at once if you have: slow heart rate, weak pulse, fainting, slow breathing (breathing may stop); chest pain, fast or pounding heartbeats; a seizure, extreme drowsiness; or decreased adrenal gland hormones--nausea, vomiting, stomach pain, loss of appetite, feeling tired or light-headed, muscle or joint pain, skin discoloration, craving salty foods. Serious breathing problems may be more likely in older adults and in those who are debilitated or have wasting syndrome or chronic breathing disorders. Seek medical attention right away if you have symptoms of serotonin syndrome, such as: agitation, hallucinations, fever, sweating, shivering, fast heart rate, muscle stiffness, twitching, loss of coordination, nausea, vomiting, or diarrhea. Common side effects may include: sleep problems (insomnia), itching; drowsiness, headache, dizziness, tiredness; or constipation, stomach pain, nausea, vomiting. This is not a complete list of side effects and others may occur. Call your doctor for medical advice about side effects. You may report side effects to FDA at 8-500-ADK-3029. What other drugs will affect oxycodone? You may have a fatal oxycodone overdose if you start or stop using certain medicines. Tell your doctor about all your medications. Tell your doctor about all your medications especially if you use medicine to treat HIV, antibiotic, antifungal medication, or seizure medication. Many other drugs can be dangerous when used with opioid medicine. Tell your doctor if you also use: medicine for allergies, asthma, blood pressure, motion sickness, irritable bowel, or overactive bladder; other opioid medicines, a benzodiazepine sedative like Valium, Klonopin, or Xanax; sleep medicine, muscle relaxers, or other drugs that make you drowsy; or drugs that affect serotonin, such as antidepressants, stimulants, or medicine for migraines or Parkinson's disease. This list is not complete and many other drugs may affect oxycodone. This includes prescription and ofvd-qcy-phqsikh medicines, vitamins, and herbal products. Not all possible drug interactions are listed here. Where can I get more information? Your doctor or pharmacist can provide more information about oxycodone. Remember, keep this and all other medicines out of the reach of children, never share your medicines with others, and use this medication only for the indication prescribed. Every effort has been made to ensure that the information provided by [employer]') is accurate, up-to-date, and complete, but no guarantee is made to that effect. Drug information contained herein may be time sensitive. [employer] information has been compiled for use by healthcare practitioners and consumers in the [place] and therefore [employer] does not warrant that uses outside of the [place] are appropriate, unless specifically indicated otherwise. [employer]'s drug information does not endorse drugs, diagnose patients or recommend therapy. [employer] drug information is an informational resource designed to assist licensed healthcare practitioners in caring for their patients and/or to serve consumers viewing this service as a supplement to, and not a substitute for, the expertise, skill, knowledge and judgment of healthcare practitioners. The absence of a warning for a given drug or drug combination in no way should be construed to indicate that the drug or drug combination is safe, effective or appropriate for any given patient. [employer] does not assume any responsibility for any aspect of healthcare administered with the aid of information [employer] provides. The information contained herein is not intended to cover all possible uses, directions, precautions, warnings, drug interactions, allergic reactions, or adverse effects. If you have questions about the drugs you are taking, check with your doctor, nurse or pharmacist. Copyright 1746-8563 [employer] Version: 17.. Revision Date: 08/20/2023. oxycodone (ox i KOE done) Oxaydo, OxyCONTIN, Roxicodone, RoxyBond, Xtampza ER What is the most important information I should know about oxycodone? MISUSE OF OPIOID MEDICINE CAN CAUSE ADDICTION, OVERDOSE, OR . Fatal side effects may occur if you also drink alcohol or use other drugs that cause drowsiness or slow breathing. Using opioid medicine during may cause life-threatening withdrawal symptoms in the . What is oxycodone? Oxycodone is an opioid pain medication used to treat moderate to severe pain. Oxycodone is usually given after other treatments did not work or were not tolerated. Extended-release oxycodone is for mlltsp-uxi-rrspb treatment of severe and chronic pain that requires longer treatment. This medicine is not for use on an as-needed basis. Oxycodone may also be used for purposes not listed in this medication guide. What should I discuss with my healthcare provider before taking oxycodone? You should not use oxycodone if you are allergic to it, or if you have severe asthma, breathing problems or a stomach or bowel obstruction (including paralytic ileus). Tell your doctor if you have ever had: other breathing problems, sleep apnea (breathing that stops during sleep); a head injury, brain tumor, high pressure inside the skull, or seizures, drug or alcohol addiction, or mental illness; if you have used an MAO inhibitor in the past 14 days, such as isocarboxazid, linezolid, methylene blue injection, phenelzine, or tranylcypromine; urination problems, problems with your gallbladder, pancreas, thyroid, or adrenal gland; or liver or kidney disease. Most forms of oxycodone are not approved for use in people under 18 years old. The extended-release tablets should not be given to a child younger than 11 years old. Tell your doctor if you also use stimulant medicine, opioid medicine, herbal products, or medicine for depression, mental illness, Parkinson's disease, migraine headaches, serious infections, or prevention of nausea and vomiting. An interaction with oxycodone could cause a serious condition called serotonin syndrome. May harm an unborn baby. Tell your doctor if you are or plan to become . If you use oxycodone during , your baby could be born with life-threatening withdrawal symptoms, and may need medical treatment for several weeks. Do not breastfeed. Oxycodone in breast milk can cause life-threatening side effects in a nursing baby. Long-term oxycodone may affect fertility in men or women. could be harder to achieve while either parent is using this medicine. How should I take oxycodone? Follow the directions on your prescription label and read all medication guides or instruction sheets. Never use oxycodone in larger amounts, or for longer than prescribed. Tell your doctor if you feel an increased urge to use more of this medicine. Never share opioid medicine with another person, especially someone with a history of drug addiction. MISUSE CAN CAUSE ADDICTION, OVERDOSE, OR . Keep the medicine where others cannot get to it. Selling or giving away this medicine is against the law. Never crush a pill or use the liquid to inhale the mixture or inject it into your vein. This could result in . Your dose needs may change if you switch to a different brand, strength, or form of this medicine. Avoid medication errors by using exactly as directed on the label, or as prescribed by your doctor. Stop taking all other bdkbvt-nkp-sfkbg opioid pain medicines when you start taking extended-release oxycodone. Swallow the extended-release forms whole to avoid exposure to a potentially fatal overdose. Do not crush, chew, break, open, or dissolve. Take the extended-release capsules with food. Read and carefully follow the instructions for use on how to prepare and take this medicine if you cannot swallow extended release capsules whole or you use a feeding tube. Ask your doctor or pharmacist if you don't understand these instructions. Measure liquid medicine with the supplied measuring device (not a kitchen spoon). You may be given other medications to help prevent or treat certain side effects. You may have withdrawal symptoms if you stop using oxycodone suddenly. Ask your doctor before stopping the medicine. Store at room temperature away from moisture and heat. Keep your medicine in a place where no one can use it improperly. Do not keep leftover medicine. Just one dose can cause in someone using it accidentally or improperly. Ask your pharmacist about a drug take-back program, or flush the unused medicine down the toilet. What happens if I miss a dose? Since oxycodone is used for pain, you are not likely to miss a dose. Skip any missed dose if it is almost time for your next dose. Do not use two doses at one time. What happens if I overdose? Seek emergency medical attention or call the Poison Help line at . An overdose can be fatal, especially in a child or person using opioid medicine without a prescription. Your doctor may recommend you get naloxone (a medicine to reverse an opioid overdose) and keep it with you at all times. A person caring for you can give the naloxone if you stop breathing or don't wake up. Your caregiver must still get emergency medical help and may need to perform CPR (cardiopulmonary resuscitation) on you while waiting for help to arrive. Anyone can buy naloxone from a pharmacy or local health department. Make sure any person caring for you knows where you keep naloxone and how to use it. What should I avoid while taking oxycodone? Do not drink alcohol or any products that contain alcohol. Dangerous side effects or could occur. Avoid driving or hazardous activity until you know how this medicine will affect you. Dizziness or drowsiness can causing falls, accidents, or severe injuries. Also avoid getting up too fast from a sitting or lying position, or you may feel dizzy. What are the possible side effects of oxycodone? Get emergency medical help if you have signs of an allergic reaction: hives, difficult breathing, swelling of your face, lips, tongue, or throat. Opioid medicine can slow or stop your breathing, and may occur, especially if you drink alcohol or use other drugs that cause drowsiness or slow breathing. A person caring for you should give naloxone and/or seek emergency medical attention if you have slow breathing with long pauses, blue colored lips, or if you are hard to wake up. Call your doctor at once if you have: slow heart rate, weak pulse, fainting, slow breathing (breathing may stop); chest pain, fast or pounding heartbeats; a seizure, extreme drowsiness; or decreased adrenal gland hormones--nausea, vomiting, stomach pain, loss of appetite, feeling tired or light-headed, muscle or joint pain, skin discoloration, craving salty foods. Serious breathing problems may be more likely in older adults and in those who are debilitated or have wasting syndrome or chronic breathing disorders. Seek medical attention right away if you have symptoms of serotonin syndrome, such as: agitation, hallucinations, fever, sweating, shivering, fast heart rate, muscle stiffness, twitching, loss of coordination, nausea, vomiting, or diarrhea. Common side effects may include: sleep problems (insomnia), itching; drowsiness, headache, dizziness, tiredness; or constipation, stomach pain, nausea, vomiting. This is not a complete list of side effects and others may occur. Call your doctor for medical advice about side effects. You may report side effects to FDA at 0-348-ZSX-0580. What other drugs will affect oxycodone? You may have a fatal oxycodone overdose if you start or stop using certain medicines. Tell your doctor about all your medications. Tell your doctor about all your medications especially if you use medicine to treat HIV, antibiotic, antifungal medication, or seizure medication. Many other drugs can be dangerous when used with opioid medicine. Tell your doctor if you also use: medicine for allergies, asthma, blood pressure, motion sickness, irritable bowel, or overactive bladder; other opioid medicines, a benzodiazepine sedative like Valium, Klonopin, or Xanax; sleep medicine, muscle relaxers, or other drugs that make you drowsy; or drugs that affect serotonin, such as antidepressants, stimulants, or medicine for migraines or Parkinson's disease. This list is not complete and many other drugs may affect oxycodone. This includes prescription and qpgr-kgo-geylqar medicines, vitamins, and herbal products. Not all possible drug interactions are listed here. Where can I get more information? Your doctor or pharmacist can provide more information about oxycodone. Remember, keep this and all other medicines out of the reach of children, never share your medicines with others, and use this medication only for the indication prescribed. Every effort has been made to ensure that the information provided by [employer] ('[employer]') is accurate, up-to-date, and complete, but no guarantee is made to that effect. Drug information contained herein may be time sensitive. [employer] information has been compiled for use by healthcare practitioners and consumers in the [place] and therefore [employer] does not warrant that uses outside of the [place] are appropriate, unless specifically indicated otherwise. [employer]'s drug information does not endorse drugs, diagnose patients or recommend therapy. [employer] drug information is an informational resource designed to assist licensed healthcare practitioners in caring for their patients and/or to serve consumers viewing this service as a supplement to, and not a substitute for, the expertise, skill, knowledge and judgment of healthcare practitioners. The absence of a warning for a given drug or drug combination in no way should be construed to indicate that the drug or drug combination is safe, effective or appropriate for any given patient. [employer] does not assume any responsibility for any aspect of healthcare administered with the aid of information [employer] provides. The information contained herein is not intended to cover all possible uses, directions, precautions, warnings, drug interactions, allergic reactions, or adverse effects. If you have questions about the drugs you are taking, check with your doctor, nurse or pharmacist. Copyright 8110-6170 [employer] Version: 17.. Revision Date: 08/20/2023. Education Materials Cholecystitis Cholecystitis is irritation and swelling (inflammation) of the gallbladder. The gallbladder is an organ that is shaped like a pear. It is under the liver on the right side of the body. This organ stores bile. Bile helps the body break down (digest) the fats in food. This condition can occur all of a sudden. It needs to be treated. What are the causes? This condition may be caused by stones or lumps that form in the gallbladder (gallstones). Gallstones can block the tube (duct) that carries bile out of your gallbladder. Other causes are: Damage to the gallbladder due to less blood flow. Germs in the bile ducts. Scars or kinks in the bile ducts. Abnormal growths (tumors) in the liver, pancreas, or gallbladder. What increases the risk? You are more likely to develop this condition if: You have sickle cell disease. You take control pills. You use estrogen. You have alcoholic liver disease. You have liver cirrhosis. You are being fed through a vein. You are very ill. You do not eat or drink for a long time. This is also called fasting. You are overweight (obese). You lose weight too fast. You are . You have high levels of fat in the blood (triglycerides). You have irritation and swelling of the pancreas (pancreatitis). What are the signs or symptoms? Symptoms of this condition include: Pain in the belly (abdomen). Pain is often in the upper right area of the belly. Tenderness or bloating in the belly. Feeling sick to your stomach (nauseous). Throwing up (vomiting). Fever. Chills. How is this diagnosed? This condition may be diagnosed with a medical history and exam. You may also have other tests, such as: Imaging tests. This may include: ? Ultrasound. ? CT scan of the belly. ? Nuclear scan. This is also called a HIDA scan. This scan lets your doctor see the bile as it moves in your body. ? MRI. Blood tests. These are done to check: ? Your blood count. The white blood cell count may be higher than normal. ? How well your liver works. How is this treated? This condition may be treated with: Surgery to take out your gallbladder. Antibiotic medicines to treat illnesses caused by germs. Going without food for some time. Giving fluids through an IV tube. Medicines to treat pain or throwing up. Follow these instructions at home: If you had surgery, follow instructions from your doctor about how to care for yourself after you go home. Medicines Take nqha-vxu-pobpcfq and prescription medicines only as told by your doctor. If you were prescribed an antibiotic medicine, take it as told by your doctor. Do not stop taking it even if you start to feel better. General instructions Follow instructions from your doctor about what to eat or drink. Do not eat or drink anything that makes you sick again. Do not lift anything that is heavier than 10 lb (4.5 kg) until your doctor says that it is safe. Do not use any products that contain nicotine or tobacco, such as cigarettes and e-cigarettes. If you need help quitting, ask your doctor. Keep all follow-up visits as told by your doctor. This is important. Contact a doctor if: You have pain and your medicine does not help. You have a fever. Get help right away if: Your pain moves to: ? Another part of your belly. ? Your back. Your symptoms do not go away. You have new symptoms. Summary Cholecystitis is swelling and irritation of the gallbladder. This condition may be caused by stones or lumps that form in the gallbladder (gallstones). Common symptoms are pain in the belly. You may feel sick to your stomach and start throwing up. You may also have a fever and chills. This condition may be treated with surgery to take out the gallbladder. It may also be treated with medicines, fasting, and fluids through an IV tube. Follow what you are told about eating and drinking. Do not eat things that make you sick again. This information is not intended to replace advice given to you by your health care provider. Make sure you discuss any questions you have with your health care provider. Document Released: 07/03/2012 Document Revised: 11/21/2018 Document Reviewed: 11/21/2018 [employer] Patient Education 2020 [employer] Additional Information VACCINATE! IT SAVES LIVES! Members of the community who have not yet received the COVID-19 vaccine and would like to receive it can visit one of [facility] vaccine clinics. There are many vaccine clinic locations within the State. For locations and available times, please visit [email or web address] It is important to note that some COVID mobile vaccine clinics are held outdoors and may be canceled in rainy or stormy conditions. To learn more about pediatric vaccinations (ages 5-11), we invite you to visit the [employer] webpage. [email or web address] [email or web address] To learn more about the COVID-19 vaccine, we invite you to visit the CDC website for a list of frequently asked questions.https://www.cdc.gov/shi virus/2019-ncov/vaccines/faq.html [employer] Patient Portal Access Instructions: Stay connected with your healthcare team and access your personal medical information anytime with the [employer] Patient Portal. Please follow the directions below to create your [employer] account: 1.Access the email account you provided upon registration to the hospital/physician office.2.Look for an invitation email from [facility].3.Open the email and access the invitation link: Accept Invitation to [facility].4.Fill in the required gastelum to create your account. To access your account, visit [email or web address]. Click the blue button labeled Access Patient Portal and then log in with the username and password that you created in the steps above. You will be able to view your test results, lab results, a summary of your visits, upcoming appointments and more. There is also a convenient messaging option where you can send secure messages to your provider. In addition, you will have the ability to download any documents or summaries to your computer and/or send the information securely to a physician. Remember that your healthcare information is confidential, so carefully consider who you will allow to register on the [employer] Patient Portal for access to your information. You can also access the [facility] Patient Portal on the [employer]. Simply click on Patient Portal and then log into your account. If you would like to receive a full copy of your medical records, please contact the [facility] Medical Records Department by calling [phone], Saturday through Saturday between 8 a.m. and 4:30 p.m. HOW TO SAFELY DISPOSE OF PRESCRIPTION MEDICATIONS Please use one of the following methods to safely dispose of your unused medications. 1.Use a drug disposal kit: the drug disposal pouch allows you to safely discard your old and unused drugs. Ask your nurse to give you one when you are discharged.2.Visit a local take-back location: Many local pharmacies and police departments have programs that collect old and unwanted prescription drugs. Call your local pharmacy or go to http://EventWith.HealthCrowd/2K5Rl6p to find one close to you.3.Make use of household items: Use cat litter or old coffee grounds to dispose medications if other options are not available. Mix your drugs with these household products, seal them in an airtight container and throw it into the garbage. Call [facility]: [phone] to be sure your drugs can be disposed of in this way. Some medicines may require a different approach.4.Never flush your medications down the toilet. IF YOU HAVE BEEN PRESCRIBED AN OPIOID FOR PAIN If you have been prescribed an opioid (such as hydrocodone, oxycodone or morphine), it is critical to understand the possible side effects and risks of opioid pain medications. Even when taken as directed, opioids can have several side effects including: Tolerance, meaning you might need to take more of a medication for the same pain relief. Nausea, vomiting and/or constipation. Sleepiness, dizziness, dry mouth, confusion, depression or itching. Physical dependence, meaning you have withdrawal symptoms when a medication is stopped, can develop within a few days. KNOW YOUR RESPONSIBILITIES It is important to know exactly how much and how often to take the opioid pain medications you are prescribed. Never take opioids in higher amounts or more often than prescribed. Do not combine opioids with alcohol or other drugs that cause drowsiness, such as benzodiazepines, also known as benzos, including diazepam and alprazolam, muscle relaxants or sleep aids. Never sell or share prescription opioids. This is illegal. Store opioids in a secure place and out of reach of others (including children, family, friends and visitors). The last page of this document has been signed and retained as a CHART COPY. Signatures Patient Education Materials Cholecystitis, Urpb-mp-Okyy Medication Leaflets oxycodone, oxycodone My discharge plan and instructions have been reviewed and explained to me and I,VANDANA BROWN understand my current condition and have read and understand these discharge instructions. I have received a written copy of the plan/instructions. If I have questions, I am aware that I should contact my doctor. Patient/Conversion Developer Signature: ___ Date/Time: Relationship to Patient: _ Witness Name/Signature: Date/Time: [facility] 11-26-2024 Note Discharge Instructions Thank you for allowing [facility] to assist you with your healthcare needs. The following is important discharge information regarding your hospital visit. Your Care Team LYNSEY PEREZ MSN, IMPORT COORDINATOR Your Diagnosis Acute cholecystitis Gallstone History of nephrectomy, left Leukocytosis Postoperative pain What to do next Instructions From Your Doctor Postoperative Activity/Wound Care Recommendations: No lifting or pushing objects greater than 10-15 pounds and no strenuous activity. Walking, using the stairs, and riding in a car are acceptable forms of activity and are encouraged in the postoperative period. Incentive spirometry use and deep breathing/coughing exercises are also encouraged after discharge to prevent respiratory complications such as pneumonia and blood clots. No driving while taking narcotic pain medication. You may shower. No tub bathing or soaking your incisions, and no pool/hot tub use until cleared by your surgeon. Wash your incisions daily with a mild soap and water and pat dry. Postoperative Medication Recommendations/Education: It is recommended that you alternate between 650-1000 mg of Tylenol and 400-600 mg Motrin (Advil or Ibuprofen) every 6 hours as needed to optimize pain control after surgery. A temporary prescription for a narcotic pain medication has been provided to you postoperatively and should only be used for breakthrough pain as narcotics increase the risk for constipation, dependency, overdose, and respiratory depression. Constipation after surgery is a very common concern for patients after discharge from the hospital. Patients are encouraged to take over the counter stool softeners (such as Colace) and over the counter laxatives (Miralax) as needed for constipation. Additional medications that can be taken for postoperative constipation include milk of magnesia, Metamucil, and Senokot. 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 No driving while taking narcotic pain medication and for a minimum of 3-5 days postoperatively., 11/26/24 10:06:00 EDT Discharge Diet - Ordered -- Type of Diet: Regular, Low-fat diet, 11/26/24 10:06:00 EDT The Following Equipment Has Been Ordered for You Discharge Home Equipment Discharge Wound Care - Ordered -- Leave surgical glue in place and allow it to fall off on its own. Shower only; wash incision sites with soap and water and pat dry. No tub bathing or indoor pool/hot tub use., 11/26/24 10:06:00 EDT The Following Treatments Have Been Ordered for You Discharge Labs No qualifying data available. Discharge Radiology No qualifying data available. Other Therapies No qualifying data available. Post Acute Orders No qualifying data available. Someone Will Contact You Regarding These Home Health Referrals No home referrals have been ordered for you. No one will call you. Allergies NKA Medications Please ask your primary doctor or pharmacist before taking any other medication not listed, including over the counter drugs, herbal medications, vitamins and or supplements as they may interact with your home medications. What How Much When Why Instructions Last Dose New acetaminophen (Tylenol 325 mg oral capsule) 650 Milligram by mouth Every 4 hours as needed for as needed for pain New oxyCODONE (oxyCODONE 5 mg oral tablet ( IMMEDIATE release )) 1 tab(s) by mouth Every 6 hours as needed for as needed for pain Postoperative pain Duration: 3 Days Pickup at [facility]/pharmacy #[id number] Changed ethinyl estradiol-norethindrone (Lo Loestrin Fe oral tablet) Every day Unchanged metoprolol (metoprolol succinate 25 mg oral TABLET extended release) 1 tab(s) by mouth Once a day Do not crush or chew (controlled release) Unchanged omeprazole (omeprazole 40 mg oral delayed release capsule) 1 cap by mouth Daily at bedtime Duration: 30 Days Unchanged ondansetron (ondansetron 4 mg oral tablet, disintegrating) 1 tab(s) by mouth Every 8 hours as needed for Nausea/Vomiting Duration: 5 Days Unchanged sucralfate (sucralfate 1 g oral tablet) See instructions 1 tab(s) Oral 30 minutes before meals and bedtime Pharmacy Information [facility]/pharmacy #[id number]: [address], [place] [id number] [phone] Please take this list to your next doctor s visit. Bring all medications you take, including over the counter medications, herbals and other supplements with you to your doctor s visit. Patients and families are reminded to discard old lists and to update any records with all medication providers or retail pharmacies. Medication Leaflets oxycodone (ox i KOE done) Oxaydo, OxyCONTIN, Roxicodone, RoxyBond, Xtampza ER What is the most important information I should know about oxycodone? MISUSE OF OPIOID MEDICINE CAN CAUSE ADDICTION, OVERDOSE, OR . Fatal side effects may occur if you also drink alcohol or use other drugs that cause drowsiness or slow breathing. Using opioid medicine during may cause life-threatening withdrawal symptoms in the . What is oxycodone? Oxycodone is an opioid pain medication used to treat moderate to severe pain. Oxycodone is usually given after other treatments did not work or were not tolerated. Extended-release oxycodone is for myosjp-ztu-yvdem treatment of severe and chronic pain that requires longer treatment. This medicine is not for use on an as-needed basis. Oxycodone may also be used for purposes not listed in this medication guide. What should I discuss with my healthcare provider before taking oxycodone? You should not use oxycodone if you are allergic to it, or if you have severe asthma, breathing problems or a stomach or bowel obstruction (including paralytic ileus). Tell your doctor if you have ever had: other breathing problems, sleep apnea (breathing that stops during sleep); a head injury, brain tumor, high pressure inside the skull, or seizures, drug or alcohol addiction, or mental illness; if you have used an MAO inhibitor in the past 14 days, such as isocarboxazid, linezolid, methylene blue injection, phenelzine, or tranylcypromine; urination problems, problems with your gallbladder, pancreas, thyroid, or adrenal gland; or liver or kidney disease. Most forms of oxycodone are not approved for use in people under 18 years old. The extended-release tablets should not be given to a child younger than 11 years old. Tell your doctor if you also use stimulant medicine, opioid medicine, herbal products, or medicine for depression, mental illness, Parkinson's disease, migraine headaches, serious infections, or prevention of nausea and vomiting. An interaction with oxycodone could cause a serious condition called serotonin syndrome. May harm an unborn baby. Tell your doctor if you are or plan to become . If you use oxycodone during , your baby could be born with life-threatening withdrawal symptoms, and may need medical treatment for several weeks. Do not breastfeed. Oxycodone in breast milk can cause life-threatening side effects in a nursing baby. Long-term oxycodone may affect fertility in men or women. could be harder to achieve while either parent is using this medicine. How should I take oxycodone? Follow the directions on your prescription label and read all medication guides or instruction sheets. Never use oxycodone in larger amounts, or for longer than prescribed. Tell your doctor if you feel an increased urge to use more of this medicine. Never share opioid medicine with another person, especially someone with a history of drug addiction. MISUSE CAN CAUSE ADDICTION, OVERDOSE, OR . Keep the medicine where others cannot get to it. Selling or giving away this medicine is against the law. Never crush a pill or use the liquid to inhale the mixture or inject it into your vein. This could result in . Your dose needs may change if you switch to a different brand, strength, or form of this medicine. Avoid medication errors by using exactly as directed on the label, or as prescribed by your doctor. Stop taking all other mogugj-zli-fkzdk opioid pain medicines when you start taking extended-release oxycodone. Swallow the extended-release forms whole to avoid exposure to a potentially fatal overdose. Do not crush, chew, break, open, or dissolve. Take the extended-release capsules with food. Read and carefully follow the instructions for use on how to prepare and take this medicine if you cannot swallow extended release capsules whole or you use a feeding tube. Ask your doctor or pharmacist if you don't understand these instructions. Measure liquid medicine with the supplied measuring device (not a kitchen spoon). You may be given other medications to help prevent or treat certain side effects. You may have withdrawal symptoms if you stop using oxycodone suddenly. Ask your doctor before stopping the medicine. Store at room temperature away from moisture and heat. Keep your medicine in a place where no one can use it improperly. Do not keep leftover medicine. Just one dose can cause in someone using it accidentally or improperly. Ask your pharmacist about a drug take-back program, or flush the unused medicine down the toilet. What happens if I miss a dose? Since oxycodone is used for pain, you are not likely to miss a dose. Skip any missed dose if it is almost time for your next dose. Do not use two doses at one time. What happens if I overdose? Seek emergency medical attention or call the Poison Help line at . An overdose can be fatal, especially in a child or person using opioid medicine without a prescription. Your doctor may recommend you get naloxone (a medicine to reverse an opioid overdose) and keep it with you at all times. A person caring for you can give the naloxone if you stop breathing or don't wake up. Your caregiver must still get emergency medical help and may need to perform CPR (cardiopulmonary resuscitation) on you while waiting for help to arrive. Anyone can buy naloxone from a pharmacy or local health department. Make sure any person caring for you knows where you keep naloxone and how to use it. What should I avoid while taking oxycodone? Do not drink alcohol or any products that contain alcohol. Dangerous side effects or could occur. Avoid driving or hazardous activity until you know how this medicine will affect you. Dizziness or drowsiness can causing falls, accidents, or severe injuries. Also avoid getting up too fast from a sitting or lying position, or you may feel dizzy. What are the possible side effects of oxycodone? Get emergency medical help if you have signs of an allergic reaction: hives, difficult breathing, swelling of your face, lips, tongue, or throat. Opioid medicine can slow or stop your breathing, and may occur, especially if you drink alcohol or use other drugs that cause drowsiness or slow breathing. A person caring for you should give naloxone and/or seek emergency medical attention if you have slow breathing with long pauses, blue colored lips, or if you are hard to wake up. Call your doctor at once if you have: slow heart rate, weak pulse, fainting, slow breathing (breathing may stop); chest pain, fast or pounding heartbeats; a seizure, extreme drowsiness; or decreased adrenal gland hormones--nausea, vomiting, stomach pain, loss of appetite, feeling tired or light-headed, muscle or joint pain, skin discoloration, craving salty foods. Serious breathing problems may be more likely in older adults and in those who are debilitated or have wasting syndrome or chronic breathing disorders. Seek medical attention right away if you have symptoms of serotonin syndrome, such as: agitation, hallucinations, fever, sweating, shivering, fast heart rate, muscle stiffness, twitching, loss of coordination, nausea, vomiting, or diarrhea. Common side effects may include: sleep problems (insomnia), itching; drowsiness, headache, dizziness, tiredness; or constipation, stomach pain, nausea, vomiting. This is not a complete list of side effects and others may occur. Call your doctor for medical advice about side effects. You may report side effects to FDA at 6-410-CSL-2759. What other drugs will affect oxycodone? You may have a fatal oxycodone overdose if you start or stop using certain medicines. Tell your doctor about all your medications. Tell your doctor about all your medications especially if you use medicine to treat HIV, antibiotic, antifungal medication, or seizure medication. Many other drugs can be dangerous when used with opioid medicine. Tell your doctor if you also use: medicine for allergies, asthma, blood pressure, motion sickness, irritable bowel, or overactive bladder; other opioid medicines, a benzodiazepine sedative like Valium, Klonopin, or Xanax; sleep medicine, muscle relaxers, or other drugs that make you drowsy; or drugs that affect serotonin, such as antidepressants, stimulants, or medicine for migraines or Parkinson's disease. This list is not complete and many other drugs may affect oxycodone. This includes prescription and qepf-yhe-nweubqu medicines, vitamins, and herbal products. Not all possible drug interactions are listed here. Where can I get more information? Your doctor or pharmacist can provide more information about oxycodone. Remember, keep this and all other medicines out of the reach of children, never share your medicines with others, and use this medication only for the indication prescribed. Every effort has been made to ensure that the information provided by [employer] is accurate, up-to-date, and complete, but no guarantee is made to that effect. Drug information contained herein may be time sensitive. [employer] information has been compiled for use by healthcare practitioners and consumers in the [place] and therefore [employer] does not warrant that uses outside of the [place] are appropriate, unless specifically indicated otherwise. [employer] drug information does not endorse drugs, diagnose patients or recommend therapy. [employer] drug information is an informational resource designed to assist licensed healthcare practitioners in caring for their patients and/or to serve consumers viewing this service as a supplement to, and not a substitute for, the expertise, skill, knowledge and judgment of healthcare practitioners. The absence of a warning for a given drug or drug combination in no way should be construed to indicate that the drug or drug combination is safe, effective or appropriate for any given patient. [employer] does not assume any responsibility for any aspect of healthcare administered with the aid of information [employer] provides. The information contained herein is not intended to cover all possible uses, directions, precautions, warnings, drug interactions, allergic reactions, or adverse effects. If you have questions about the drugs you are taking, check with your doctor, nurse or pharmacist. Copyright 8538-9468 [employer] Version: 17.. Revision Date: 08/20/2023. oxycodone (ox i KOE done) Oxaydo, OxyCONTIN, Roxicodone, RoxyBond, Xtampza ER What is the most important information I should know about oxycodone? MISUSE OF OPIOID MEDICINE CAN CAUSE ADDICTION, OVERDOSE, OR . Fatal side effects may occur if you also drink alcohol or use other drugs that cause drowsiness or slow breathing. Using opioid medicine during may cause life-threatening withdrawal symptoms in the . What is oxycodone? Oxycodone is an opioid pain medication used to treat moderate to severe pain. Oxycodone is usually given after other treatments did not work or were not tolerated. Extended-release oxycodone is for aflwum-ukm-keecj treatment of severe and chronic pain that requires longer treatment. This medicine is not for use on an as-needed basis. Oxycodone may also be used for purposes not listed in this medication guide. What should I discuss with my healthcare provider before taking oxycodone? You should not use oxycodone if you are allergic to it, or if you have severe asthma, breathing problems or a stomach or bowel obstruction (including paralytic ileus). Tell your doctor if you have ever had: other breathing problems, sleep apnea (breathing that stops during sleep); a head injury, brain tumor, high pressure inside the skull, or seizures, drug or alcohol addiction, or mental illness; if you have used an MAO inhibitor in the past 14 days, such as isocarboxazid, linezolid, methylene blue injection, phenelzine, or tranylcypromine; urination problems, problems with your gallbladder, pancreas, thyroid, or adrenal gland; or liver or kidney disease. Most forms of oxycodone are not approved for use in people under 18 years old. The extended-release tablets should not be given to a child younger than 11 years old. Tell your doctor if you also use stimulant medicine, opioid medicine, herbal products, or medicine for depression, mental illness, Parkinson's disease, migraine headaches, serious infections, or prevention of nausea and vomiting. An interaction with oxycodone could cause a serious condition called serotonin syndrome. May harm an unborn baby. Tell your doctor if you are or plan to become . If you use oxycodone during , your baby could be born with life-threatening withdrawal symptoms, and may need medical treatment for several weeks. Do not breastfeed. Oxycodone in breast milk can cause life-threatening side effects in a nursing baby. Long-term oxycodone may affect fertility in men or women. could be harder to achieve while either parent is using this medicine. How should I take oxycodone? Follow the directions on your prescription label and read all medication guides or instruction sheets. Never use oxycodone in larger amounts, or for longer than prescribed. Tell your doctor if you feel an increased urge to use more of this medicine. Never share opioid medicine with another person, especially someone with a history of drug addiction. MISUSE CAN CAUSE ADDICTION, OVERDOSE, OR . Keep the medicine where others cannot get to it. Selling or giving away this medicine is against the law. Never crush a pill or use the liquid to inhale the mixture or inject it into your vein. This could result in . Your dose needs may change if you switch to a different brand, strength, or form of this medicine. Avoid medication errors by using exactly as directed on the label, or as prescribed by your doctor. Stop taking all other lapwuy-eln-vszpt opioid pain medicines when you start taking extended-release oxycodone. Swallow the extended-release forms whole to avoid exposure to a potentially fatal overdose. Do not crush, chew, break, open, or dissolve. Take the extended-release capsules with food. Read and carefully follow the instructions for use on how to prepare and take this medicine if you cannot swallow extended release capsules whole or you use a feeding tube. Ask your doctor or pharmacist if you don't understand these instructions. Measure liquid medicine with the supplied measuring device (not a kitchen spoon). You may be given other medications to help prevent or treat certain side effects. You may have withdrawal symptoms if you stop using oxycodone suddenly. Ask your doctor before stopping the medicine. Store at room temperature away from moisture and heat. Keep your medicine in a place where no one can use it improperly. Do not keep leftover medicine. Just one dose can cause in someone using it accidentally or improperly. Ask your pharmacist about a drug take-back program, or flush the unused medicine down the toilet. What happens if I miss a dose? Since oxycodone is used for pain, you are not likely to miss a dose. Skip any missed dose if it is almost time for your next dose. Do not use two doses at one time. What happens if I overdose? Seek emergency medical attention or call the Poison Help line at . An overdose can be fatal, especially in a child or person using opioid medicine without a prescription. Your doctor may recommend you get naloxone (a medicine to reverse an opioid overdose) and keep it with you at all times. A person caring for you can give the naloxone if you stop breathing or don't wake up. Your caregiver must still get emergency medical help and may need to perform CPR (cardiopulmonary resuscitation) on you while waiting for help to arrive. Anyone can buy naloxone from a pharmacy or local health department. Make sure any person caring for you knows where you keep naloxone and how to use it. What should I avoid while taking oxycodone? Do not drink alcohol or any products that contain alcohol. Dangerous side effects or could occur. Avoid driving or hazardous activity until you know how this medicine will affect you. Dizziness or drowsiness can causing falls, accidents, or severe injuries. Also avoid getting up too fast from a sitting or lying position, or you may feel dizzy. What are the possible side effects of oxycodone? Get emergency medical help if you have signs of an allergic reaction: hives, difficult breathing, swelling of your face, lips, tongue, or throat. Opioid medicine can slow or stop your breathing, and may occur, especially if you drink alcohol or use other drugs that cause drowsiness or slow breathing. A person caring for you should give naloxone and/or seek emergency medical attention if you have slow breathing with long pauses, blue colored lips, or if you are hard to wake up. Call your doctor at once if you have: slow heart rate, weak pulse, fainting, slow breathing (breathing may stop); chest pain, fast or pounding heartbeats; a seizure, extreme drowsiness; or decreased adrenal gland hormones--nausea, vomiting, stomach pain, loss of appetite, feeling tired or light-headed, muscle or joint pain, skin discoloration, craving salty foods. Serious breathing problems may be more likely in older adults and in those who are debilitated or have wasting syndrome or chronic breathing disorders. Seek medical attention right away if you have symptoms of serotonin syndrome, such as: agitation, hallucinations, fever, sweating, shivering, fast heart rate, muscle stiffness, twitching, loss of coordination, nausea, vomiting, or diarrhea. Common side effects may include: sleep problems (insomnia), itching; drowsiness, headache, dizziness, tiredness; or constipation, stomach pain, nausea, vomiting. This is not a complete list of side effects and others may occur. Call your doctor for medical advice about side effects. You may report side effects to FDA at 8-227-DKA-7553. What other drugs will affect oxycodone? You may have a fatal oxycodone overdose if you start or stop using certain medicines. Tell your doctor about all your medications. Tell your doctor about all your medications especially if you use medicine to treat HIV, antibiotic, antifungal medication, or seizure medication. Many other drugs can be dangerous when used with opioid medicine. Tell your doctor if you also use: medicine for allergies, asthma, blood pressure, motion sickness, irritable bowel, or overactive bladder; other opioid medicines, a benzodiazepine sedative like Valium, Klonopin, or Xanax; sleep medicine, muscle relaxers, or other drugs that make you drowsy; or drugs that affect serotonin, such as antidepressants, stimulants, or medicine for migraines or Parkinson's disease. This list is not complete and many other drugs may affect oxycodone. This includes prescription and zabm-qvc-zrmxpsh medicines, vitamins, and herbal products. Not all possible drug interactions are listed here. Where can I get more information? Your doctor or pharmacist can provide more information about oxycodone. Remember, keep this and all other medicines out of the reach of children, never share your medicines with others, and use this medication only for the indication prescribed. Every effort has been made to ensure that the information provided by [employer]') is accurate, up-to-date, and complete, but no guarantee is made to that effect. Drug information contained herein may be time sensitive. [employer] information has been compiled for use by healthcare practitioners and consumers in the [place] and therefore [employer] does not warrant that uses outside of the [place] are appropriate, unless specifically indicated otherwise. [employer] drug information does not endorse drugs, diagnose patients or recommend therapy. [employer] drug information is an informational resource designed to assist licensed healthcare practitioners in caring for their patients and/or to serve consumers viewing this service as a supplement to, and not a substitute for, the expertise, skill, knowledge and judgment of healthcare practitioners. The absence of a warning for a given drug or drug combination in no way should be construed to indicate that the drug or drug combination is safe, effective or appropriate for any given patient. [facility] does not assume any responsibility for any aspect of healthcare administered with the aid of information [facility] provides. The information contained herein is not intended to cover all possible uses, directions, precautions, warnings, drug interactions, allergic reactions, or adverse effects. If you have questions about the drugs you are taking, check with your doctor, nurse or pharmacist. Copyright 8611-2139 [facility] [employer]. Version: 17.. Revision Date: 08/20/2023. Education Materials Cholecystitis Cholecystitis is irritation and swelling (inflammation) of the gallbladder. The gallbladder is an organ that is shaped like a pear. It is under the liver on the right side of the body. This organ stores bile. Bile helps the body break down (digest) the fats in food. This condition can occur all of a sudden. It needs to be treated. What are the causes? This condition may be caused by stones or lumps that form in the gallbladder (gallstones). Gallstones can block the tube (duct) that carries bile out of your gallbladder. Other causes are: Damage to the gallbladder due to less blood flow. Germs in the bile ducts. Scars or kinks in the bile ducts. Abnormal growths (tumors) in the liver, pancreas, or gallbladder. What increases the risk? You are more likely to develop this condition if: You have sickle cell disease. You take control pills. You use estrogen. You have alcoholic liver disease. You have liver cirrhosis. You are being fed through a vein. You are very ill. You do not eat or drink for a long time. This is also called fasting. You are overweight (obese). You lose weight too fast. You are . You have high levels of fat in the blood (triglycerides). You have irritation and swelling of the pancreas (pancreatitis). What are the signs or symptoms? Symptoms of this condition include: Pain in the belly (abdomen). Pain is often in the upper right area of the belly. Tenderness or bloating in the belly. Feeling sick to your stomach (nauseous). Throwing up (vomiting). Fever. Chills. How is this diagnosed? This condition may be diagnosed with a medical history and exam. You may also have other tests, such as: Imaging tests. This may include: ? Ultrasound. ? CT scan of the belly. ? Nuclear scan. This is also called a HIDA scan. This scan lets your doctor see the bile as it moves in your body. ? MRI. Blood tests. These are done to check: ? Your blood count. The white blood cell count may be higher than normal. ? How well your liver works. How is this treated? This condition may be treated with: Surgery to take out your gallbladder. Antibiotic medicines to treat illnesses caused by germs. Going without food for some time. Giving fluids through an IV tube. Medicines to treat pain or throwing up. Follow these instructions at home: If you had surgery, follow instructions from your doctor about how to care for yourself after you go home. Medicines Take bzhd-scz-wrdjuxv and prescription medicines only as told by your doctor. If you were prescribed an antibiotic medicine, take it as told by your doctor. Do not stop taking it even if you start to feel better. General instructions Follow instructions from your doctor about what to eat or drink. Do not eat or drink anything that makes you sick again. Do not lift anything that is heavier than 10 lb (4.5 kg) until your doctor says that it is safe. Do not use any products that contain nicotine or tobacco, such as cigarettes and e-cigarettes. If you need help quitting, ask your doctor. Keep all follow-up visits as told by your doctor. This is important. Contact a doctor if: You have pain and your medicine does not help. You have a fever. Get help right away if: Your pain moves to: ? Another part of your belly. ? Your back. Your symptoms do not go away. You have new symptoms. Summary Cholecystitis is swelling and irritation of the gallbladder. This condition may be caused by stones or lumps that form in the gallbladder (gallstones). Common symptoms are pain in the belly. You may feel sick to your stomach and start throwing up. You may also have a fever and chills. This condition may be treated with surgery to take out the gallbladder. It may also be treated with medicines, fasting, and fluids through an IV tube. Follow what you are told about eating and drinking. Do not eat things that make you sick again. This information is not intended to replace advice given to you by your health care provider. Make sure you discuss any questions you have with your health care provider. Document Released: 07/03/2012 Document Revised: 11/21/2018 Document Reviewed: 11/21/2018 Elsevier Patient Education 2020 [employer] Additional Information VACCINATE! IT SAVES LIVES! Members of the community who have not yet received the COVID-19 vaccine and would like to receive it can visit one of [facility] vaccine clinics. There are many vaccine clinic locations within the [facility]. For locations and available times, please visit [email or web address] It is important to note that some COVID mobile vaccine clinics are held outdoors and may be canceled in rainy or stormy conditions. To learn more about pediatric vaccinations (ages 5-11), we invite you to visit the [employer] webpage. [email or web address] To learn more about the COVID-19 vaccine, we invite you to visit the CDC website for a list of frequently asked questions.[email or web address].cdc.gov/shi virus/2019-ncov/vaccines/faq.html [employer] Patient Portal Access Instructions: Stay connected with your healthcare team and access your personal medical information anytime with the [employer] Patient Portal. Please follow the directions below to create your [employer] account: 1.Access the email account you provided upon registration to the hospital/physician office.2.Look for an invitation email from [facility].3.Open the email and access the invitation link: Accept Invitation to [employer].4.Fill in the required gastelum to create your account. To access your account, visit [employer]. Click the blue button labeled Access Patient Portal and then log in with the username and password that you created in the steps above. You will be able to view your test results, lab results, a summary of your visits, upcoming appointments and more. There is also a convenient messaging option where you can send secure messages to your provider. In addition, you will have the ability to download any documents or summaries to your computer and/or send the information securely to a physician. Remember that your healthcare information is confidential, so carefully consider who you will allow to register on the [facility] Patient Portal for access to your information. You can also access the [facility] Patient Portal on the [facility] christ[facility]. Simply click on Patient Portal and then log into your account. If you would like to receive a full copy of your medical records, please contact the [facility] Medical Records Department by calling [phone], Saturday through Saturday between 8 a.m. and 4:30 p.m. HOW TO SAFELY DISPOSE OF PRESCRIPTION MEDICATIONS Please use one of the following methods to safely dispose of your unused medications. 1.Use a drug disposal kit: the drug disposal pouch allows you to safely discard your old and unused drugs. Ask your nurse to give you one when you are discharged.2.Visit a local take-back location: Many local pharmacies and police departments have programs that collect old and unwanted prescription drugs. Call your local pharmacy or go to http://StyleJam/5Q1Jj5c to find one close to you.3.Make use of household items: Use cat litter or old coffee grounds to dispose medications if other options are not available. Mix your drugs with these household products, seal them in an airtight container and throw it into the garbage. Call [facility]: [phone] to be sure your drugs can be disposed of in this way. Some medicines may require a different approach.4.Never flush your medications down the toilet. IF YOU HAVE BEEN PRESCRIBED AN OPIOID FOR PAIN If you have been prescribed an opioid (such as hydrocodone, oxycodone or morphine), it is critical to understand the possible side effects and risks of opioid pain medications. Even when taken as directed, opioids can have several side effects including: Tolerance, meaning you might need to take more of a medication for the same pain relief. Nausea, vomiting and/or constipation. Sleepiness, dizziness, dry mouth, confusion, depression or itching. Physical dependence, meaning you have withdrawal symptoms when a medication is stopped, can develop within a few days. KNOW YOUR RESPONSIBILITIES It is important to know exactly how much and how often to take the opioid pain medications you are prescribed. Never take opioids in higher amounts or more often than prescribed. Do not combine opioids with alcohol or other drugs that cause drowsiness, such as benzodiazepines, also known as benzos, including diazepam and alprazolam, muscle relaxants or sleep aids. Never sell or share prescription opioids. This is illegal. Store opioids in a secure place and out of reach of others (including children, family, friends and visitors). The last page of this document has been signed and retained as a CHART COPY. Signatures Patient Education Materials Cholecystitis, [id number] Medication Leaflets oxycodone, oxycodone My discharge plan and instructions have been reviewed and explained to me and I,VANDANA BROWN understand my current condition and have read and understand these discharge instructions. I have received a written copy of the plan/instructions. If I have questions, I am aware that I should contact my doctor. Patient/Conversion Developer Signature: ___ Date/Time: Relationship to Patient: _ Witness Name/Signature: Date/Time: [facility] 11-26-2024 Discharge summary Date of Service 11/26/2024 Discharge Diagnosis 1 - Acute cholecystitis (K81.0 - ICD-10-CM) 2 - Postoperative pain (G89.18 - ICD-10-CM) Hospital Course This patient was a 54-year-old female who presented to the [facility] emergency department on 11/25/2024 with ongoing complaints of right upper quadrant abdominal pain. A workup was completed in the emergency department and she was found to have evidence of acute cholecystitis. She was transferred to [facility] for definitive management. Later in the evening on 11/25/2024 she underwent a laparoscopic cholecystectomy with Dr. Mayers. Postoperatively, a diet was initiated and advanced as tolerated. On 11/26/2024 she met criteria for discharge home. All discharge instructions were reviewed at the bedside with the patient by Dr. Mayers and myself. She will be evaluated in the outpatient general surgery office in 2 weeks for her first postoperative visit. She is to call the office with any questions or concerns. She voiced understanding and was in agreement with the plan of care. Allergies NKA Procedures 11/25/2024: Laparoscopic cholecystectomy Consults Consult to Anesthesia - Ordered -- 11/25/24 14:11:00 EDT, surgery pending, for OR today Consult to Spiritual Care Team (Consult to Pastoral Care) - Ordered -- 11/25/24 21:15:49 EDT Imaging Results and Diagnostics US Abdomen Limited Result Date: November 25, 2024 Verified By: GARLAND TOBIAS MD CLINICAL STATEMENT: IMPRESSION: Gallstone with borderline gallbladder wall thickening and negative sonographic Lanier's sign. Findings are equivocal for the possibility of acute cholecystitis. If strongly suspected, consider HIDA scan. Physical Exam Vitals and Measurements T: 36.5 C (Oral) TMIN: 36 C (Temporal Artery) TMAX: 37.91 C HR: 77 (Apical) RR: 16 BP: 124/80 SpO2: 97% HT: 172.7 cm WT: 104.6 kg BMI: 35.07 Weight Dosing Weight: 104.6 kg (11/25/24) Dosing Weight: 104.6 kg (11/25/24) General: Awake, alert and oriented x4. In no apparent distress. Able to answer questions appropriately and speak in full sentences. Supine in bed. HEENT: Sclera anicteric. Heart: S1 and S2 present. Lungs: Chest rise symmetrical. Respirations unlabored. Abdomen: Soft and tender. Nondistended. No rigidity or guarding noted. Incision sites approximated. Extremities: Freely moving. Psychiatric: Calm and cooperative. Pending Labs and Studies None Code Status Code Status - Ordered -- 11/25/24 14:11:00 EDT, Full Code, Constant Order Admission Date 11/25/2024 Discharge Date 11/26/2024 Patient Instructions Postoperative Activity/Wound Care Recommendations: No lifting or pushing objects greater than 10-15 pounds and no strenuous activity. Walking, using the stairs, and riding in a car are acceptable forms of activity and are encouraged in the postoperative period. Incentive spirometry use and deep breathing/coughing exercises are also encouraged after discharge to prevent respiratory complications such as pneumonia and blood clots. No driving while taking narcotic pain medication. You may shower. No tub bathing or soaking your incisions, and no pool/hot tub use until cleared by your surgeon. Wash your incisions daily with a mild soap and water and pat dry. Postoperative Medication Recommendations/Education: It is recommended that you alternate between 650-1000 mg of Tylenol and 400-600 mg Motrin (Advil or Ibuprofen) every 6 hours as needed to optimize pain control after surgery. A temporary prescription for a narcotic pain medication has been provided to you postoperatively and should only be used for breakthrough pain as narcotics increase the risk for constipation, dependency, overdose, and respiratory depression. Constipation after surgery is a very common concern for patients after discharge from the hospital. Patients are encouraged to take over the counter stool softeners (such as Colace) and over the counter laxatives (Miralax) as needed for constipation. Additional medications that can be taken for postoperative constipation include milk of magnesia, Metamucil, and Senokot. OARRS Report I have reviewed the [place] Automated Rx Reporting System (OARRS) report for this patient for refill pattern and other prescriber involvement as part of the appropriate surveillance for the provision of acute and chronic controlled medications. The report was requested and reviewed on the date of this entry, and was considered in the prescribing process. Patient has been assessed using the Opioid Risk Tool in the setting of acute pain. The patient has been instructed to use non-opioid analgesic therapy first and if that is not effective for reducing pain, a temporary prescription for an opioid analgesic has been provided. Benefits and risks, such as dependency, adverse side effects, and overdose discussed. Medications New Prescription acetaminophen (Tylenol 325 mg oral capsule)650 Milligram by mouth every 4 hours as needed as needed for pain. oxyCODONE (oxyCODONE 5 mg oral tablet ( IMMEDIATE release ))1 tab(s) by mouth every 6 hours as needed as needed for pain for 3 Days. Refills: 0. Changed ethinyl estradiol-norethindrone (Lo Loestrin Fe oral tablet)every day. Unchanged metoprolol (metoprolol succinate 25 mg oral TABLET extended release)1 tab(s) by mouth once a day. Do not crush or chew (controlled release). Refills: 0. omeprazole (omeprazole 40 mg oral delayed release capsule)1 cap by mouth daily at bedtime for 30 Days. Refills: 0. ondansetron (ondansetron 4 mg oral tablet, disintegrating)1 tab(s) by mouth every 8 hours as needed Nausea/Vomiting for 5 Days. Refills: 0. sucralfate (sucralfate 1 g oral tablet)1 tab(s) Oral 30 minutes before meals and bedtime. Refills: 0. Follow Up Follow Up with REESE MAYERS DO, Surgery When:12/07/2024 09:30 AM EDT Where:[address] [place] [address], [address] [place] [address]- [phone] Follow Up Appointments No qualifying data available. Follow Up Labs/Studies Discharge Labs No Follow-up Labs Discharge Studies No Follow-up Studies Discharge Diet Discharge Diet - Ordered -- Type of Diet: Regular, Low-fat diet, 11/26/24 10:06:00 EDT Discharge Activity Discharge Activity - Ordered -- May Shower, No lifting anything greater than 10-15 pounds and no strenuous activity. No driving while taking narcotic pain medication and for a minimum of 3-5 days postoperatively., 11/26/24 10:06:00 EDT Condition on Discharge Stable Discharge Disposition Home Information Provided To Patient and nursing staff Time Spent 20 minutes Digitally Signed by RAAD REDDY on 11/26/2024 10:17 AM [facility] 11-25-2024 Anesthesiology Consult note Patient: VANDANA BROWN Age: 54 years Sex: Female : 1970 Associated Diagnoses: None Author: TA JACK MD Postoperative Information Post Operative Info: Post op day: Post Anesthesia Care Unit. Patient location: PACU. Assessment Postanesthesia assessment Vitals: Vital signs from flowsheet : Vital Signs 11/25/2024 20:28 EDT Temperature Oral 36.6 DegC Peripheral Pulse Rate 90 bpm Respiratory Rate 16 br/min Systolic Blood Pressure Non-Invasive 129 mmHg Diastolic Blood Pressure Non-Invasive 85 mmHg 11/25/2024 20:11 EDT Temperature Temporal Artery 36.1 DegC Heart Rate Monitored 101 bpm HI Respiratory Rate 16 br/min Systolic Blood Pressure Non-Invasive 139 mmHg Diastolic Blood Pressure Non-Invasive 87 mmHg Mean Arterial Pressure (NBP) 104 mmHg 11/25/2024 19:56 EDT Heart Rate Monitored 102 bpm HI 11/25/2024 19:56 EDT Respiratory Rate 16 br/min Systolic Blood Pressure Non-Invasive 132 mmHg Diastolic Blood Pressure Non-Invasive 83 mmHg Mean Arterial Pressure (NBP) 95 mmHg 11/25/2024 19:41 EDT Heart Rate Monitored 98 bpm 11/25/2024 19:41 EDT Temperature Temporal Artery 36 DegC Respiratory Rate 16 br/min Systolic Blood Pressure Non-Invasive 113 mmHg Diastolic Blood Pressure Non-Invasive 70 mmHg Mean Arterial Pressure (NBP) 84 mmHg 11/25/2024 19:35 EDT Heart Rate Monitored 92 bpm bpm Respiratory Rate - Anes 9 br/min br/min 11/25/2024 19:33 EDT Systolic Blood Pressure Non-Invasive 101 mmHg mmHg Diastolic Blood Pressure Non-Invasive 80 mmHg mmHg 11/25/2024 19:30 EDT Heart Rate Monitored 88 bpm bpm Respiratory Rate - Anes 11 br/min br/min Systolic Blood Pressure Non-Invasive 108 mmHg mmHg Diastolic Blood Pressure Non-Invasive 75 mmHg mmHg 11/25/2024 19:27 EDT Systolic Blood Pressure Non-Invasive 113 mmHg mmHg Diastolic Blood Pressure Non-Invasive 74 mmHg mmHg 11/25/2024 19:25 EDT Heart Rate Monitored 92 bpm bpm Respiratory Rate - Anes 19 br/min br/min 11/25/2024 19:24 EDT Systolic Blood Pressure Non-Invasive 111 mmHg mmHg Diastolic Blood Pressure Non-Invasive 72 mmHg mmHg 11/25/2024 19:21 EDT Systolic Blood Pressure Non-Invasive 133 mmHg mmHg Diastolic Blood Pressure Non-Invasive 87 mmHg mmHg 11/25/2024 19:20 EDT Temperature (Route Not Specified) 37.76 DegC DegC Heart Rate Monitored 97 bpm bpm Respiratory Rate - Anes 18 br/min br/min 11/25/2024 19:18 EDT Systolic Blood Pressure Non-Invasive 104 mmHg mmHg Diastolic Blood Pressure Non-Invasive 74 mmHg mmHg 11/25/2024 19:15 EDT Temperature (Route Not Specified) 37.81 DegC DegC Heart Rate Monitored 102 bpm bpm Respiratory Rate - Anes 18 br/min br/min Systolic Blood Pressure Non-Invasive 96 mmHg mmHg Diastolic Blood Pressure Non-Invasive 75 mmHg mmHg 11/25/2024 19:12 EDT Systolic Blood Pressure Non-Invasive 76 mmHg mmHg Diastolic Blood Pressure Non-Invasive 53 mmHg mmHg 11/25/2024 19:10 EDT Temperature (Route Not Specified) 37.91 DegC DegC Heart Rate Monitored 103 bpm bpm Respiratory Rate - Anes 18 br/min br/min 11/25/2024 19:09 EDT Systolic Blood Pressure Non-Invasive 93 mmHg mmHg Diastolic Blood Pressure Non-Invasive 66 mmHg mmHg 11/25/2024 19:06 EDT Systolic Blood Pressure Non-Invasive 116 mmHg mmHg Diastolic Blood Pressure Non-Invasive 74 mmHg mmHg 11/25/2024 19:05 EDT Temperature (Route Not Specified) 37.89 DegC DegC Heart Rate Monitored 105 bpm bpm Respiratory Rate - Anes 16 br/min br/min 11/25/2024 19:03 EDT Systolic Blood Pressure Non-Invasive 97 mmHg mmHg Diastolic Blood Pressure Non-Invasive 74 mmHg mmHg 11/25/2024 19:00 EDT Temperature (Route Not Specified) 37.82 DegC DegC Heart Rate Monitored 106 bpm bpm Respiratory Rate - Anes 16 br/min br/min Systolic Blood Pressure Non-Invasive 105 mmHg mmHg Diastolic Blood Pressure Non-Invasive 76 mmHg mmHg 11/25/2024 18:57 EDT Systolic Blood Pressure Non-Invasive 112 mmHg mmHg Diastolic Blood Pressure Non-Invasive 82 mmHg mmHg 11/25/2024 18:55 EDT Temperature (Route Not Specified) 37.79 DegC DegC Heart Rate Monitored 109 bpm bpm Respiratory Rate - Anes 16 br/min br/min 11/25/2024 18:54 EDT Systolic Blood Pressure Non-Invasive 115 mmHg mmHg Diastolic Blood Pressure Non-Invasive 85 mmHg mmHg 11/25/2024 18:51 EDT Systolic Blood Pressure Non-Invasive 117 mmHg mmHg Diastolic Blood Pressure Non-Invasive 82 mmHg mmHg 11/25/2024 18:50 EDT Temperature (Route Not Specified) 37.76 DegC DegC Heart Rate Monitored 111 bpm bpm Respiratory Rate - Anes 16 br/min br/min 11/25/2024 18:48 EDT Systolic Blood Pressure Non-Invasive 117 mmHg mmHg Diastolic Blood Pressure Non-Invasive 88 mmHg mmHg 11/25/2024 18:45 EDT Temperature (Route Not Specified) 37.73 DegC DegC Heart Rate Monitored 113 bpm bpm Respiratory Rate - Anes 16 br/min br/min Systolic Blood Pressure Non-Invasive 119 mmHg mmHg Diastolic Blood Pressure Non-Invasive 81 mmHg mmHg 11/25/2024 18:42 EDT Systolic Blood Pressure Non-Invasive 118 mmHg mmHg Diastolic Blood Pressure Non-Invasive 83 mmHg mmHg 11/25/2024 18:40 EDT Temperature (Route Not Specified) 37.68 DegC DegC Heart Rate Monitored 112 bpm bpm Respiratory Rate - Anes 16 br/min br/min 11/25/2024 18:39 EDT Systolic Blood Pressure Non-Invasive 121 mmHg mmHg Diastolic Blood Pressure Non-Invasive 84 mmHg mmHg 11/25/2024 18:36 EDT Systolic Blood Pressure Non-Invasive 107 mmHg mmHg Diastolic Blood Pressure Non-Invasive 85 mmHg mmHg 11/25/2024 18:35 EDT Temperature (Route Not Specified) 37.58 DegC DegC Heart Rate Monitored 112 bpm bpm Respiratory Rate - Anes 14 br/min br/min 11/25/2024 18:33 EDT Systolic Blood Pressure Non-Invasive 110 mmHg mmHg Diastolic Blood Pressure Non-Invasive 77 mmHg mmHg 11/25/2024 18:31 EDT Systolic Blood Pressure Non-Invasive 78 mmHg mmHg Diastolic Blood Pressure Non-Invasive 64 mmHg mmHg 11/25/2024 18:30 EDT Temperature (Route Not Specified) 37.45 DegC DegC Heart Rate Monitored 51 bpm bpm Respiratory Rate - Anes 10 br/min br/min Systolic Blood Pressure Non-Invasive 61 mmHg mmHg Diastolic Blood Pressure Non-Invasive 50 mmHg mmHg 11/25/2024 18:27 EDT Systolic Blood Pressure Non-Invasive 59 mmHg mmHg Diastolic Blood Pressure Non-Invasive 46 mmHg mmHg 11/25/2024 18:25 EDT Temperature (Route Not Specified) 37.42 DegC DegC Heart Rate Monitored 88 bpm bpm Respiratory Rate - Anes 15 br/min br/min 11/25/2024 18:24 EDT Systolic Blood Pressure Non-Invasive 85 mmHg mmHg Diastolic Blood Pressure Non-Invasive 63 mmHg mmHg 11/25/2024 18:21 EDT Systolic Blood Pressure Non-Invasive 95 mmHg mmHg Diastolic Blood Pressure Non-Invasive 59 mmHg mmHg 11/25/2024 18:20 EDT Temperature (Route Not Specified) 37.47 DegC DegC Heart Rate Monitored 86 bpm bpm Respiratory Rate - Anes 15 br/min br/min 11/25/2024 18:18 EDT Systolic Blood Pressure Non-Invasive 79 mmHg mmHg Diastolic Blood Pressure Non-Invasive 56 mmHg mmHg 11/25/2024 18:15 EDT Temperature (Route Not Specified) 37.58 DegC DegC Heart Rate Monitored 90 bpm bpm Respiratory Rate - Anes 15 br/min br/min Systolic Blood Pressure Non-Invasive 84 mmHg mmHg Diastolic Blood Pressure Non-Invasive 55 mmHg mmHg 11/25/2024 18:12 EDT Systolic Blood Pressure Non-Invasive 90 mmHg mmHg Diastolic Blood Pressure Non-Invasive 62 mmHg mmHg 11/25/2024 18:10 EDT Temperature (Route Not Specified) 37.51 DegC DegC Heart Rate Monitored 92 bpm bpm Respiratory Rate - Anes 15 br/min br/min 11/25/2024 18:09 EDT Systolic Blood Pressure Non-Invasive 109 mmHg mmHg Diastolic Blood Pressure Non-Invasive 67 mmHg mmHg 11/25/2024 18:06 EDT Systolic Blood Pressure Non-Invasive 105 mmHg mmHg Diastolic Blood Pressure Non-Invasive 62 mmHg mmHg 11/25/2024 18:05 EDT Heart Rate Monitored 82 bpm bpm Respiratory Rate - Anes 0 br/min br/min 11/25/2024 18:03 EDT Systolic Blood Pressure Non-Invasive 129 mmHg mmHg Diastolic Blood Pressure Non-Invasive 74 mmHg mmHg 11/25/2024 18:00 EDT Respiratory Rate - Anes 0 br/min br/min 11/25/2024 17:12 EDT Temperature Temporal Artery 36.8 DegC Peripheral Pulse Rate 84 bpm Respiratory Rate 16 br/min Systolic Blood Pressure Non-Invasive 127 mmHg Diastolic Blood Pressure Non-Invasive 84 mmHg 11/25/2024 14:34 EDT Temperature Temporal Artery 37.0 DegC Peripheral Pulse Rate 91 bpm Respiratory Rate 14 br/min Systolic Blood Pressure Non-Invasive 128 mmHg Diastolic Blood Pressure Non-Invasive 82 mmHg 11/25/2024 14:14 EDT Apical Heart Rate Not Done: Patient took med at home (Not Done) 11/25/2024 13:33 EDT Peripheral Pulse Rate 78 bpm Respiratory Rate 16 br/min Systolic Blood Pressure Non-Invasive 139 mmHg Diastolic Blood Pressure Non-Invasive 82 mmHg 11/25/2024 12:20 EDT Peripheral Pulse Rate 85 bpm Respiratory Rate 16 br/min Systolic Blood Pressure Non-Invasive 145 mmHg HI Diastolic Blood Pressure Non-Invasive 83 mmHg 11/25/2024 11:48 EDT Peripheral Pulse Rate 73 bpm Respiratory Rate 16 br/min Systolic Blood Pressure Non-Invasive 123 mmHg Diastolic Blood Pressure Non-Invasive 77 mmHg 11/25/2024 9:43 EDT Temperature Temporal Artery 36.0 DegC Peripheral Pulse Rate 96 bpm Respiratory Rate 16 br/min Systolic Blood Pressure Non-Invasive 128 mmHg Diastolic Blood Pressure Non-Invasive 80 mmHg , Oxygen Therapy : Oxygen Therapy & Oxygenation Information 11/25/2024 20:28 EDT Oxygen Therapy Nasal cannula 0L-6L Oxygen Saturation 100 % Oxygen Flow Rate 2 L/min 11/25/2024 20:11 EDT Oxygen Therapy Nasal cannula 0L-6L Oxygen Saturation 98 % Oxygen Flow Rate 2 L/min 11/25/2024 19:56 EDT Oxygen Saturation 100 % 11/25/2024 19:56 EDT Oxygen Therapy Nasal cannula 0L-6L Oxygen Flow Rate 2 L/min 11/25/2024 19:50 EDT Oxygen Therapy Nasal cannula 0L-6L Oxygen Saturation 97 % Oxygen Flow Rate 2 L/min 11/25/2024 19:49 EDT Oxygen Saturation 96 % 11/25/2024 19:41 EDT Oxygen Therapy Nasal cannula 0L-6L Oxygen Saturation 98 % Oxygen Flow Rate 4 L/min 11/25/2024 19:35 EDT Oxygen Saturation 96 % % 11/25/2024 19:30 EDT Oxygen Saturation 94 % % 11/25/2024 19:25 EDT Oxygen Saturation 97 % % 11/25/2024 19:20 EDT Oxygen Saturation 97 % % 11/25/2024 19:15 EDT Oxygen Saturation 98 % % 11/25/2024 19:10 EDT Oxygen Saturation 98 % % 11/25/2024 19:05 EDT Oxygen Saturation 99 % % 11/25/2024 19:00 EDT Oxygen Saturation 100 % % 11/25/2024 18:55 EDT Oxygen Saturation 100 % % 11/25/2024 18:50 EDT Oxygen Saturation 100 % % 11/25/2024 18:45 EDT Oxygen Saturation 100 % % 11/25/2024 18:40 EDT Oxygen Saturation 99 % % 11/25/2024 18:35 EDT Oxygen Saturation 97 % % 11/25/2024 18:30 EDT Oxygen Saturation 98 % % 11/25/2024 18:25 EDT Oxygen Saturation 96 % % 11/25/2024 18:20 EDT Oxygen Saturation 97 % % 11/25/2024 18:15 EDT Oxygen Saturation 97 % % 11/25/2024 18:10 EDT Oxygen Saturation 98 % % 11/25/2024 18:05 EDT Oxygen Saturation 100 % % 11/25/2024 17:12 EDT Oxygen Therapy Room air Oxygen Saturation 96 % 11/25/2024 14:34 EDT Oxygen Therapy Room air Oxygen Saturation 98 % 11/25/2024 13:33 EDT Oxygen Saturation 99 % 11/25/2024 12:20 EDT Oxygen Saturation 99 % 11/25/2024 11:48 EDT Oxygen Saturation 99 % . Mental status: at preoperative baseline. Respiratory function: respirations are non-labored, Stable. Respiratory support: none. CV function: Stable. Cardiovascular support: none. Pain: Satisfactory. Nausea status: Satisfactory. Postoperative hydration status: within normal limits. Notes: Patient is sufficiently recovered from anesthesia to participate in the evaluation. No follow-up care needed. No complications post-anesthesia.. Digitally Signed by TA JACK MD on 11/25/2024 10:45 PM [facility] 11-25-2024 History and physical note Date of Service Chief Complaint pt was seen on saturday fro abd pain states pain is now in the epigastric area too nausea History of Present Illness This is a 54 year old female with a past medical history of a HTN, GERD, POCS, left sided nephrectomy who initially presented to the ER on 11/23/2024 after experiencing epigastric discomfort and abdominal pain with nausea. Patient reporting that at that time it was a sudden onset on the way to work. Patient initial workup in the emergency room included basic laboratory data and a CT scan of abdomen and pelvis. Patient had no leukocytosis and her CMP was unremarkable except for a creatinine of 0.96. CT scan completed showing left nephrectomy changes, cholelithiasis, diverticulosis, and a mildly complex right axonal cyst per the interpretation of the radiologist. The patient was given a GI cocktail and was prescribed omeprazole Carafate and Zofran, treated for gastritis and discharge to home. Patient then returned back to the emergency room on 11/24/2024 for ongoing persistent upper gastric/abdominal pain that she described as burning with associated symptoms of nausea with the inability to tolerate p.o. fluids and food. Patient also reporting that she did have a fever of 101.7 last evening on 11/24/2024. Patient was then noted to have leukocytosis with a WBC of 19.5, creatinine of 1.0, no elevated liver enzymes or elevation of bilirubin.. Ultrasound of abdomen completed showing that the gallbladder was moderately distended with a stone in the gallbladder neck region that was not mobile with borderline gallbladder wall thickening. Patient's common duct measured 2 mm with no common bile duct dilatation. Given the patient's ongoing pain, leukocytosis and ultrasound of her abdomen the patient was transferred to [facility] for definitive care and admitted to the surgical services team for treatment and evaluation. Review of Systems pertinent positives described above and otherwise negative. Physical Exam Vitals and Measurements T: 37.0 C (Temporal Artery) TMIN: 36.0 C (Temporal Artery) TMAX: 37.0 C (Temporal Artery) HR: 91 RR: 14 BP: 128/82 SpO2: 98% HT: 172.7 cm WT: 104.6 kg Weight Dosing Weight: 104.6 kg (11/25/24) Dosing Weight: 104 kg (11/25/24) General: Awake and alert and in no apparent distress., Nontoxic able to answer questions and speak in full sentences. Supine in bed. Sitting upright. HEENT: Mucous membranes moist and pink. Sclerae anicteric. PERRLA. Heart: Tachycardic, but regular Lungs: Chest rise symmetrical. Respirations unlabored. Clear to auscultation bilaterally. Abdomen: Obese, soft, with tenderness to the right upper quadrant/epigastric region. Bowel sounds x 4. No peritoneal symptoms, rigidity or guarding at this time. Extremities: Freely moving. Skin: Normal color for ethnicity. No pallor or diaphoresis. No jaundice. Psychiatric: Calm and cooperative. Lab Results 11/25 10:19 WBC: 19.5 H Hgb: 14.7 Hct: 42.8 Platelet: 308 Neutrophil %: 89.7 H Glucose Level: 128 H Sodium Level: 136 Potassium Level: 3.8 BUN: 8 Creatinine Lvl (s): 1.00 H Imaging Results and Diagnostics US Abdomen Limited Result Date: November 25, 2024 Verified By: GARLAND TOBIAS MD CLINICAL STATEMENT: IMPRESSION: Gallstone with borderline gallbladder wall thickening and negative sonographic Lanier's sign. Findings are equivocal for the possibility of acute cholecystitis. If strongly suspected, consider HIDA scan. EKG EC11/25/24: Sinus rhythm Probable anteroseptal infarct, old Electronic Signature: MARIPOSA WYLIE DO 11/25/2024 11:47:29 Assessment/Plan 1. Acute cholecystitis 2. Gallstone 3. Leukocytosis This very pleasant 54-year-old female who was seen and evaluated at [facility] emergency room for complaint of epigastric/abdominal pain with burning sensation to was found to have leukocytosis and an abnormal ultrasound of abdomen showing a gallstone stuck within the gallbladder wall neck that was not mobile on ultrasound. Given these findings the patient was transferred to [facility] and admitted to surgical services team for close observation and treatment. Vital signs, laboratory data, radiology reports and physician documentations have been reviewed. Plan: 1.Acute cholecystitis -Patient be given Zosyn secondary to her acute cholecystitis and leukocytosis. Leukocytosis more than likely related to the acute cholecystitis. -Patient be taken to the OR by Dr. Bear to undergo a laparoscopic cholecystectomy Risk versus benefits of the surgery were discussed with patient included postoperative infection, bleeding, risk for DVT/PE, and intraoperative risk for damage to surrounding structures. The patient voiced understanding and was in agreement with plan. -Patient to remain NPO -Continue with multimodality pain control and antiemetics as needed. Case to be discussed with Dr. Bear. Please see his addendum to follow. This document was dictated with voice recognition software and may contain grammatical errors Problem List/Past Medical History Ongoing Female cystocele Hemorrhoids History of nephrectomy, left Kidney donor- left kidney Recurrent UTI Screening for colon cancer Procedure/Surgical History Left nephrectomy 2008 Medications Home Medications (5) Active Lo Loestrin Fe oral tablet metoprolol succinate 25 mg oral TABLET extended release 25 mg = 1 tab(s), Oral, qDay omeprazole 40 mg oral delayed release capsule 40 mg = 1 cap(s), Oral, qHS ondansetron 4 mg oral tablet, disintegrating 4 mg = 1 tab(s), PRN, Oral, q8h sucralfate 1 g oral tablet See Instructions Allergies NKA Social History Smoking Status - 03/27/2016 Never smoker Alcohol Use: Current. Type: Beer. Frequency: 1-2 times per year. Has alcohol use interfered with work or home life: No., 11/25/2024 Home/Environment Living situation: Home/Independent. Safe place to go: No. Domestic Concerns: None. Lives In: Single level home, 1st floor bedroom, 2nd floor bedroom, basement laundry. Current Home Treatments None., 11/25/2024 Substance Abuse Use: Never., 11/25/2024 Tobacco Nicotine Use: Never (less than 100 in lifetime)., 11/23/2024 Tobacco Use: Never (less than 100 in lifetime)., 11/20/2018 Family History Bladder cancer: Negative: Mother, Father, Sister, Brother, Daughter, Son and Grandparent. Diabetes: Mother. Kidney disease: Negative: Mother, Father, Sister, Brother, Daughter, Son and Grandparent. Kidney stone: Negative: Mother, Father, Sister, Brother, Daughter, Son and Grandparent. Renal cancer: Negative: Mother, Father, Sister, Brother, Daughter, Son and Grandparent. Stroke: Mother. Health Status Family Member(s) Immunizations No qualifying data available. Code Status Code Status - Ordered -- 11/25/24 14:11:00 EDT, Full Code, Constant Order Digitally Signed by RIOS BOSE on 11/25/2024 02:46 PM [facility] 11-25-2024 Anesthesiology Consult note Patient: VANDANA BROWN Age: 54 years Sex: Female : 1970 Associated Diagnoses: None Author: TA JACK MD Preoperative Information NPO >8 hours food >2hours clear liqiods Anesthesia history Patient's history: negative. Health Status Allergies: Allergic Reactions (Selected) NKA, Allergies (1) ActiveSeverityReaction NKANone Documented Current medications: (Selected) Inpatient Medications Ordered Dilaudid: Start: 11/25/24 14:32:00 EDT, Dose = 1 mg, = 1 mL, IV Push, q3h, PRN, Pain, scale 7-10, 0, 11/25/24 14:32:00 EDT Dilaudid: Start: 11/25/24 14:33:00 EDT, Dose = 0.5 mg, = 0.5 mL, IV Push, q3h, PRN, Pain, scale 4-6, 11/25/24 14:33:00 EDT LR 1,000 mL: Start: 11/25/24 14:11:00 EDT, Rate: 125 mL/hr, 11/25/24 14:11:00 EDT Lo Loestrin Fe oral tablet: Start: 11/26/24 9:00:00 EDT, Lo Loestrin Fe oral tablet, qDay, Oral, Misc, Routine, Patient's Own Meds, 11/25/24 16:02:00 EDT Ofirmev IVPB: Start: 11/25/24 15:00:00 EDT, Dose = 1,000 mg, = 100 mL, IV Piggyback, q6hr, 24 hour(s), Stop: 11/26/24 9:00:00 EDT, Rate: 400 mL/hr, Infuse over: 15 minute(s), 0, 11/25/24 14:35:00 EDT Zofran: Start: 11/25/24 14:33:00 EDT, Dose = 4 mg, = 2 mL, IV Push, q6h, PRN, as needed for nausea/vomiting, 11/25/24 14:33:00 EDT indocyanine green: Start: 11/25/24 14:34:00 EDT, Dose = 5 mg, = 2 mL, IV Push, PREOP pharm, 12 hour(s), Stop: 11/26/24 2:33:00 EDT, 0, 11/25/24 14:34:00 EDT metoprolol succinate 25 mg oral TABLET extended release: Start: 11/25/24 14:14:00 EDT, Dose = 25 mg, = 1 tab(s), Oral, qDay, 11/25/24 14:14:00 EDT morphine 4 mg/mL preservative-free injectable solution: Start: 11/25/24 13:00:00 EDT, Dose = 4 mg, = 1 mL, IV Push, q2h, PRN, Pain, breakthrough, 11/25/24 13:00:00 EDT Prescriptions Prescribed metoprolol succinate 25 mg oral TABLET extended release: Dose : 25 mg = 1 tab(s), Oral, qDay, Do not crush or chew (controlled release), # 30 tab(s), 0 Refill(s), Pharmacy: [facility]/pharmacy #[id number], kg, 06/06/24 21:33:00 EST, Dosing Weight omeprazole 40 mg oral delayed release capsule: Dose : 40 mg = 1 cap(s), Oral, qHS, # 30 cap(s), 0 Refill(s), [id number] [place]ose, 11/23/24 11:05:00 EDT, Dosing Weight ondansetron 4 mg oral tablet, disintegrating: Dose : 4 mg = 1 tab(s), Oral, q8h, PRN Nausea/Vomiting, X 5 day(s), # 8 tab(s), 0 Refill(s), 11/28/24 15:46:00 EDT, [id number] [place], 11/23/24 11:05:00 EDT, Dosing Weight sucralfate 1 g oral tablet: See Instructions, 1 tab(s) Oral 30 minutes before meals and bedtime, # 56 tab(s), 0 Refill(s), [id number] [place], 11/23/24 11:05:00 EDT, Dosing Weight Documented Medications Documented Lo Loestrin Fe oral tablet: 0 Refill(s), Medications (9) Active Scheduled: (4) acetaminophen PMX 1,000 mg 100 mL, IV Piggyback, q6hr indocyanine green 25 mg 5 mg 2 mL, IV Push, PREOP pharm Lo Loestrin Fe oral tablet 1 tab(s), Oral, qDay metoprolol succinate 25 mg ER tablet 25 mg 1 tab(s), Oral, qDay Continuous: (1) Lactated Ringers 1,000 mL 1,000 mL, Intravenous, 125 mL/hr PRN: (4) HYDROmorphone 0.5 mg/0.5 mL syringe 0.5 mg 0.5 mL, IV Push, q3h hydromorphone 1 mg/mL (1mL) INJ 1 mg 1 mL, IV Push, q3h morphine 4 mg/mL 1mL INJ 4 mg 1 mL, IV Push, q2h ondansetron 2 mg/ 1 mL 2 mL INJ 4 mg 2 mL, IV Push, q6h Problem list: Medical Female cystocele / SNOMED CT 061108644 / Confirmed Kidney donor- left kidney / SNOMED CT 218954058 / Confirmed Hemorrhoids / SNOMED CT 839697982 / Confirmed History of nephrectomy, left / SNOMED CT 0919824809 / Confirmed Screening for colon cancer / SNOMED CT 164688291 / Confirmed Recurrent UTI / SNOMED CT 138946437 / Confirmed, Active Problems (8) Female cystocele Hemorrhoids High blood pressure History of nephrectomy, left Kidney donor- left kidney Recurrent UTI Screening for colon cancer Urinary tract infection Histories Past Medical History: No active or resolved past medical history items have been selected or recorded. Family History: Stroke Mother Diabetes Mother Procedure history: Left nephrectomy ([id number]). Comments: 11/20/2018 0:03 EDT - Mojgan Santiago RN 2008 Social History: Social & Psychosocial Habits Alcohol 11/25/2024 Use: Current Type: Beer Frequency: 1-2 times per year Has alcohol use interfered with work or home life: No Substance Abuse 11/25/2024 Use: Never Tobacco 11/25/2024 Tobacco Use: Never (less than 100 in l 11/25/2024 Tobacco Use: Never (less than 100 in l Home/Environment 11/25/2024 Living situation: Home/Independent Safe place to go: No Domestic Concerns None Lives In 1st floor bedroom, 2nd floor bedroom, Single level home, basement laundry Current Home Treatments None Physical Examination Vital Signs (last 24 hrs) Last Charted Temp Tkszohfy04.8 DegC (NOV 25 17:12) DLZ283 mmHg (NOV 25 17:12) DBP84 mmHg (NOV 25 17:12) Measurements from flowsheet : Measurements 11/25/2024 14:34 EDT Height 172.7 cm Height in inches 68 inch(es) Admission Weight 104.6 kg Weight Lbs 230.1 lb Falkner Body Weight 63.88 kg Admission Body Mass Index 35.07 m2 11/25/2024 9:43 EDT Admission Weight 104 kg General: Alert and oriented. Airway: Mallampati classification: II (soft palate, fauces, uvula visible). Dentition Evaluation: Intact. Respiratory: Lungs are clear to auscultation, Respirations are non-labored. Cardiovascular: Normal rate, Regular rhythm. Heart Sounds: Normal. Neurologic: Alert, Oriented. Review / Management Results review: Labs (Last four charted values) WBC H 19.5(NOV 25) Hgb 14.7(NOV 25) Hct 42.8(NOV 25) Plt 308(NOV 25) Na 136(NOV 25) K 3.8(NOV 25) CO2 29(NOV 25) Cl 100(NOV 25) Cr H 1.00(NOV 25) BUN 8(NOV 25) Glucose H 128(NOV 25) Ca 9.3(NOV 25) . Documentation reviewed: Current records. Assessment and Plan [place] [employer]hesi[employer] (ASA) physical status classification: Class II, E. Anesthetic Preoperative Plan Premedication: intravenous. Anesthetic technique: General. Induction: intravenously. Maintenance airway: Oral endotracheal tube. Postoperative pain management: Per surgeon. Informed consent: signed by patient. Digitally Signed by TA JACK MD on 11/25/2024 05:29 PM [facility] 11-25-2024 History and physical note Date of Service Chief Complaint pt was seen on saturday fro abd pain states pain is now in the epigastric area too nausea History of Present Illness This is a 54 year old female with a past medical history of a HTN, GERD, POCS, left sided nephrectomy who initially presented to the ER on 11/23/2024 after experiencing epigastric discomfort and abdominal pain with nausea. Patient reporting that at that time it was a sudden onset on the way to work. Patient initial workup in the emergency room included basic laboratory data and a CT scan of abdomen and pelvis. Patient had no leukocytosis and her CMP was unremarkable except for a creatinine of 0.96. CT scan completed showing left nephrectomy changes, cholelithiasis, diverticulosis, and a mildly complex right axonal cyst per the interpretation of the radiologist. The patient was given a GI cocktail and was prescribed omeprazole Carafate and Zofran, treated for gastritis and discharge to home. Patient then returned back to the emergency room on 11/24/2024 for ongoing persistent upper gastric/abdominal pain that she described as burning with associated symptoms of nausea with the inability to tolerate p.o. fluids and food. Patient also reporting that she did have a fever of 101.7 last evening on 11/24/2024. Patient was then noted to have leukocytosis with a WBC of 19.5, creatinine of 1.0, no elevated liver enzymes or elevation of bilirubin.. Ultrasound of abdomen completed showing that the gallbladder was moderately distended with a stone in the gallbladder neck region that was not mobile with borderline gallbladder wall thickening. Patient's common duct measured 2 mm with no common bile duct dilatation. Given the patient's ongoing pain, leukocytosis and ultrasound of her abdomen the patient was transferred to [facility] for definitive care and admitted to the surgical services team for treatment and evaluation. Review of Systems pertinent positives described above and otherwise negative. Physical Exam Vitals and Measurements T: 37.0 C (Temporal Artery) TMIN: 36.0 C (Temporal Artery) TMAX: 37.0 C (Temporal Artery) HR: 91 RR: 14 BP: 128/82 SpO2: 98% HT: 172.7 cm WT: 104.6 kg Weight Dosing Weight: 104.6 kg (11/25/24) Dosing Weight: 104 kg (11/25/24) General: Awake and alert and in no apparent distress., Nontoxic able to answer questions and speak in full sentences. Supine in bed. Sitting upright. HEENT: Mucous membranes moist and pink. Sclerae anicteric. PERRLA. Heart: Tachycardic, but regular Lungs: Chest rise symmetrical. Respirations unlabored. Clear to auscultation bilaterally. Abdomen: Obese, soft, with tenderness to the right upper quadrant/epigastric region. Bowel sounds x 4. No peritoneal symptoms, rigidity or guarding at this time. Extremities: Freely moving. Skin: Normal color for ethnicity. No pallor or diaphoresis. No jaundice. Psychiatric: Calm and cooperative. Lab Results 11/25 10:19 WBC: 19.5 H Hgb: 14.7 Hct: 42.8 Platelet: 308 Neutrophil %: 89.7 H Glucose Level: 128 H Sodium Level: 136 Potassium Level: 3.8 BUN: 8 Creatinine Lvl (s): 1.00 H Imaging Results and Diagnostics US Abdomen Limited Result Date: November 25, 2024 Verified By: GARLAND TOBIAS MD CLINICAL STATEMENT: IMPRESSION: Gallstone with borderline gallbladder wall thickening and negative sonographic Lanier's sign. Findings are equivocal for the possibility of acute cholecystitis. If strongly suspected, consider HIDA scan. EKG EC11/25/24: Sinus rhythm Probable anteroseptal infarct, old Electronic Signature: MARIPOSA WYLIE 11/25/2024 11:47:29 Assessment/Plan 1. Acute cholecystitis 2. Gallstone 3. Leukocytosis This very pleasant 54-year-old female who was seen and evaluated at [facility] emergency room for complaint of epigastric/abdominal pain with burning sensation to was found to have leukocytosis and an abnormal ultrasound of abdomen showing a gallstone stuck within the gallbladder wall neck that was not mobile on ultrasound. Given these findings the patient was transferred to [facility] and admitted to surgical services team for close observation and treatment. Vital signs, laboratory data, radiology reports and physician documentations have been reviewed. Plan: 1.Acute cholecystitis -Patient be given Zosyn secondary to her acute cholecystitis and leukocytosis. Leukocytosis more than likely related to the acute cholecystitis. -Patient be taken to the OR by Dr. Bear to undergo a laparoscopic cholecystectomy Risk versus benefits of the surgery were discussed with patient included postoperative infection, bleeding, risk for DVT/PE, and intraoperative risk for damage to surrounding structures. The patient voiced understanding and was in agreement with plan. -Patient to remain NPO -Continue with multimodality pain control and antiemetics as needed. Case to be discussed with Dr. Bear. Please see his addendum to follow. This document was dictated with voice recognition software and may contain grammatical errors Problem List/Past Medical History Ongoing Female cystocele Hemorrhoids History of nephrectomy, left Kidney donor- left kidney Recurrent UTI Screening for colon cancer Procedure/Surgical History Left nephrectomy 2008 Medications Home Medications (5) Active Lo Loestrin Fe oral tablet metoprolol succinate 25 mg oral TABLET extended release 25 mg = 1 tab(s), Oral, qDay omeprazole 40 mg oral delayed release capsule 40 mg = 1 cap(s), Oral, qHS ondansetron 4 mg oral tablet, disintegrating 4 mg = 1 tab(s), PRN, Oral, q8h sucralfate 1 g oral tablet See Instructions Allergies NKA Social History Smoking Status - 03/27/2016 Never smoker Alcohol Use: Current. Type: Beer. Frequency: 1-2 times per year. Has alcohol use interfered with work or home life: No., 11/25/2024 Home/Environment Living situation: Home/Independent. Safe place to go: No. Domestic Concerns: None. Lives In: Single level home, 1st floor bedroom, 2nd floor bedroom, basement laundry. Current Home Treatments None., 11/25/2024 Substance Abuse Use: Never., 11/25/2024 Tobacco Nicotine Use: Never (less than 100 in lifetime)., 11/23/2024 Tobacco Use: Never (less than 100 in lifetime)., 11/20/2018 Family History Bladder cancer: Negative: Mother, Father, Sister, Brother, Daughter, Son and Grandparent. Diabetes: Mother. Kidney disease: Negative: Mother, Father, Sister, Brother, Daughter, Son and Grandparent. Kidney stone: Negative: Mother, Father, Sister, Brother, Daughter, Son and Grandparent. Renal cancer: Negative: Mother, Father, Sister, Brother, Daughter, Son and Grandparent. Stroke: Mother. Health Status Family Member(s) Immunizations No qualifying data available. Code Status Code Status - Ordered -- 11/25/24 14:11:00 EDT, Full Code, Constant Order Digitally Signed by RIOS BOSE on 11/25/2024 02:46 PM [facility] 11-25-2024 Evaluation + Plan note Extrac theo from: Title:History and Physical Author:OUMAR BOSE Date:11/25/24 1. Acute cholecystitis 2. Gallstone 3. Leukocytosis This very pleasant 54-year-old female who was seen and evaluated at [facility] emergency room for complaint of epigastric/abdominal pain with burning sensation to was found to have leukocytosis and an abnormal ultrasound of abdomen showing a gallstone stuck within the gallbladder wall neck that was not mobile on ultrasound. Given these findings the patient was transferred to [facility] and admitted to surgical services team for close observation and treatment. Vital signs, laboratory data, radiology reports and physician documentations have been reviewed. Plan: 1.Acute cholecystitis -Patient be given Zosyn secondary to her acute cholecystitis and leukocytosis. Leukocytosis more than likely related to the acute cholecystitis. -Patient be taken to the OR by Dr. Bear to undergo a laparoscopic cholecystectomy Risk versus benefits of the surgery were discussed with patient included postoperative infection, bleeding, risk for DVT/PE, and intraoperative risk for damage to surrounding structures. The patient voiced understanding and was in agreement with plan. -Patient to remain NPO -Continue with multimodality pain control and antiemetics as needed. Case to be discussed with Dr. Bear. Please see his addendum to follow. This document was dictated with voice recognition software and may contain grammatical errors Addendum by REESE MAYERS DO on November 25, 2024 18:02:02 EDT I agree with the documentation as above by the nurse practitioner. I reviewed the patient's labs, pertinent imaging, and examined the patient today. 54-year-old female presents with acute cholecystitis. After long discussion of the risks and benefits of surgery, she elected to proceed with laparoscopic, possible open, cholecystectomy. 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 Post Op [facility] 04-30-2025 Note* Exam Date Time Procedure Performing Provider Status 11/25/24 11:43 AM EKG (ED) - CV MARIPOSA WYLIE DO; Aut h (Verified) ECG Final Report Sinus rhythm Probable anteroseptal infarct, old Electronic Signature: MARIPOSA WYLIE DO 11/25/2024 11:47:29 [id number] Note* Exam Date Time Procedure Performing Provider Status 11/25/24 11:38 AM US Abdomen Limited GARLAND TOBIAS MD; Auth (Verified) [id number] ORIGINAL EXAMINATION: LIMITED ABDOMINAL ULTRASOUND11/25/2024 11:38 am Limited ultrasound of the abdomen attention right upper quadrant COMPARISON: CT 11/23/2024 TECHNIQUE: This report is based on interpretation of permanently recorded ultrasound images. HISTORY: ORDERING SYSTEM PROVIDED HISTORY: Reason for Exam: abdominal pain; suspect gallstones, gallbladder, or cholecystitis, FINDINGS: The liver is normal in size and echogenicity. No suspicious focal lesions are seen. There is no intrahepatic bile duct dilatation. The common duct is 2 mm at the meri hepatis. There is antegrade blood flow in the main portal vein.. The gallbladder is moderately distended with a stone in the gallbladder neck region. This is not mobile with change in position. There is borderline gallbladder wall thickening. Negative sonographic Lanier's sign.. The pancreas is suboptimally evaluated due to bowel gas artifacts.. No ascites is seen in the Aranda's pouch. Limited survey images of the right kidney shows normal size and no hydronephrosis. IMPRESSION: Gallstone with borderline gallbladder wall thickening and negative sonographic Lanier's sign. Findings are equivocal for the possibility of acute cholecystitis. If strongly suspected, consider HIDA scan. Interpreted by: Garland Tobias MD Preliminary Report By: Garland Tobias MD Electronically signed By Garland Tobias MD Dictated Date: 11/25/2024 11:41:47 AM Prelim Date: 11/25/2024 11:43:41 AM Sign Date: 11/25/2024 11:43:41 AM Ordering Provider: [facility]10-23-2024 History of Present illness Narrative* Lia Phoenix PA-C - 05/20/2024 9:16 AM EDT SUBJECTIVE Vandana Brown is a 53 year old woman who presents for her annual exam. Last pap- 03/08/23. Last mammo- 12/10/17. Last dexascan-never. Patient's last menstrual period was 05/15/2024 (approximate). (Menstrual status: IUD). Periods have been regular, usually last 3-4 days, light bleeding, denies dysmenorrhea. Tolerating LoLoEstrin well, remembering to take pill everyday, using for PCOS. Discussed checking FSH; denies vasomotor sxs. Denies vaginal itching, burning, discharge. Discussed health maintenance, including regular aerobic exercise, low sugar diet, and periodic exams. Completed depression screening. Recommended colonoscopy. HISTORIES FAMILY HISTORY Problem Relation Age of Onset Colon Polyps Father 60 Breast Cancer Maternal Aunt 45 recurrence age 70s? Colon Cancer Maternal Aunt 80 PAST MEDICAL HISTORY Diagnosis Date Abnormal Pap smear of cervix 09/2020 LGSIL 10/16 colp benign 06/18 ascus/-HPV Elevated DHEA 08/2019 Hormone disturbance Hypertension Perimenopausal disorder Polycystic ovary syndrome PAST SURGICAL HISTORY Procedure Laterality Date LIVING DONOR NEPHRECTOMY, OPEN 05/11/2009 kidney donor REPAIR ABDOMINAL HERNIA Social History Tobacco Use Smoking status: Never Smokeless tobacco: Never Vaping Use Vaping status: Never Used Substance Use Topics Alcohol use: No Drug use: No ACTIVE PROBLEM LIST Benign Essential Hypertension Chronic Kidney Disease Migraine Headache Obstructive Sleep Apnea of Adult Other Ill-Defined and Unknown Causes of Morbidity and Mortality Obesity Severe Episode of Recurrent Major Depressive Disorder, Without Psychotic Features (Hcc) Vitamin D Deficiency ALLERGIES Allergen Reactions Topiramate Other: See Comments Current Outpatient Medications Medication Sig lisinopril (ZESTRIL, PRINIVIL) 5 mg tablet copper (PARAGARD) 380 square mm intrauterine device 1 Intra Uterine Device by INTRAUTERINE route. Placed 05/11/2020 norethindrone-e.estradiol-iron (LO LOESTRIN FE) 1 mg-10 mcg (24)/10 mcg (2) Take 1 tablet by mouth once daily. No current facility-administered medications for this visit. REVIEW OF SYSTEMS GENERAL: No weight loss, malaise or fevers HEENT: No changes in hearing or vision NECK: Negative for lumps, goiter, pain and significant neck swelling RESPIRATORY: Negative for cough, wheezing, dyspnea or shortness of breath CARDIOVASCULAR: Negative for chest pain or palpitations GI: Negative for abdominal discomfort, blood in stools or black stools, change in bowel habit, diarrhea, nausea, vomiting, constipation : + Frequency. No history of dysuria or incontinence. RESEARCH MICROBIOLOGIST: Negative for abnormal vaginal bleeding, abnormal vaginal discharge or Breast symptoms ENDOCRINE: Negative for cold or heat intolerance, polyuria, polydipsia and goiter NEURO: No history of headaches, syncope, paralysis, seizures or tremors OBJECTIVE BP 126/82 Ht 5' 8.5 (1.74m) Wt 236 lb (107.0kg) LMP 05/15/2024 BMI 35.36 kg/(m^2). HEENT: Within normal limits NECK: Supple, no thyromegaly BREASTS: No masses, no nipple discharge HEART: Regular rate and rhythm without murmur, rub, or gallop LUNGS: Clear bilaterally to auscultation ABDOMEN: obese, no masses, non tender, no hernias, no hepatosplenomegaly PELVIC: EGBUS: No lesions, normal appearance VAGINA: No discharge, no blood, no lesions CERVIX: No lesions, non tender; IUD strings 2cm long UTERUS: nonpalpable, non tender ADNEXA: Non tender, nonpalpable RECTOVAGINAL: Neg for heme or mass (FIT) EXTREMITIES: No edema, no calf tenderness NEUROLOGICAL: Grossly intact ASSESSMENT/PLAN: 1. Women's annual routine gynecological examination - ICD9: V72.31, ICD10: Z01.419 (primary diagnosis) - Completed pelvic and breast exam - Encouraged monthly BSE - Follow up for annual exam in one year. 2. Screening for malignant neoplasm of cervix - ICD9: V76.2, ICD10: Z12.4 - Completed pap test and breast exam - Encouraged monthly BSE - Follow up for annual exam in one year. - PAP REFLEX HPV MRNA WHEN ASCUS 3. Breast cancer screening by mammogram - ICD9: V76.12, ICD10: Z12.31 - Set up for mammogram, yearly mammogram recommended - ALVIN SCREENING W HERLINDA 4. Encounter for colorectal cancer screening - ICD9: V76.51, V76.41, ICD10: Z12.11, Z12.12 5. Screening for osteoporosis - ICD9: V82.81, ICD10: Z13.820 - DXA-AXIAL SKELETON 6. Encounter for routine checking of intrauterine contraceptive device (IUD) - ICD9: V25.42, ICD10:Z30.431 7. Encounter for surveillance of contraceptive pills - ICD9: V25.41, ICD10: Z30.41 - discussed with patient on how to take OCP's. - counseled on benefits, risks and possible severe side effects of OCP's. - discussed need to use Condoms to help to prevent STD's including HIV etc. - LO LOESTRIN FE 1 MG-10 MCG (24)/10 MCG (2) TABLET 8. Perimenopausal - ICD9: 627.2, ICD10: N95.1 - FOLLICLE STIMULATING HORMONE 9. Menopause - ICD9: 627.2, ICD10: Z78.0 - DXA-AXIAL SKELETON SURYA Foss PA-S2 Return in about 1 year (around 05/20/2025) for Annual Exam. [facility] encounterA[facility] NoteHNO ID: [id number] Author: TISH LONDON PA-C Service: ? Author Type: Physician Engineering Inspector Type: Progress Notes Filed: 12/15/2023 12:16 Note Text: This is a 53-year-old female here with a week of chest congestion, productive cough with yellow phlegm little bit of nausea and some drainage down her throat. She tried [id number] medications without much relief. Denies fevers, chills, chest pain, hemoptysis, ear or throat pain, nasal congestion or drainage, vomiting or diarrhea, leg swelling, weakness. No history of asthma or COPD. The history is provided by the patient. Cough Pertinent negatives include no chest pain, no chills, no sore throat and no eye redness. 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 norethindrone-e.estradiol-iron (LO LOESTRIN FE) 1 mg-10 mcg (24)/10 mcg (2) Take 1 tablet by mouth once daily. 84 tablet 3 lisinopril (ZESTRIL, PRINIVIL) 5 mg tablet copper (PARAGARD) 380 square mm intrauterine device 1 Intra Uterine Device by INTRAUTERINE route. Placed 05/11/2020 No current facility-administered medications for this visit. Social History Tobacco Use Smoking status: Never Smokeless tobacco: Never Vaping Use Vaping Use: Never used Substance Use Topics Alcohol use: No Drug use: No Review of Systems Constitutional: Negative for chills and fever. HENT: Positive for congestion. Negative for sinus pain and sore throat. Eyes: Negative for discharge and redness. Respiratory: Positive for cough and sputum production. Negative for stridor. Cardiovascular: Negative for chest pain. Gastrointestinal: Negative for diarrhea and vomiting. Skin: Negative for rash. Neurological: Negative for dizziness. BP 130/84 Pulse 82 Temp 97.9 Resp 20 SpO2 98% LMP 11/10/2023 Physical Exam Vitals and nursing note reviewed. Constitutional: General: She is not in acute distress. Appearance: She is not ill-appearing or toxic-appearing. HENT: Head: Normocephalic and atraumatic. Right Ear: Tympanic membrane, ear canal and external ear normal. There is no impacted cerumen. Left Ear: Tympanic membrane, ear canal and external ear normal. There is no impacted cerumen. Nose: Congestion present. Mouth/Throat: Mouth: Mucous membranes are moist. Pharynx: Oropharynx is clear. No oropharyngeal exudate. Comments: Mild posterior pharyngeal erythema with cobblestoning. Eyes: Conjunctiva/sclera: Conjunctivae normal. Cardiovascular: Rate and Rhythm: Normal rate and regular rhythm. Pulmonary: Effort: No respiratory distress. Breath sounds: No stridor. No wheezing, rhonchi or rales. Comments: Slightly diminished breath sounds to the lower lung gastelum bilaterally and posteriorly. Musculoskeletal: Cervical back: Neck supple. Comments: Moves all extremities x 4 spontaneously without difficulty. Skin: General: Skin is warm and dry. Neurological: Mental Status: She is alert. Comments: Awake and alert. Motor gross intact. Steady gait. This is a 53-year-old female here with chest congestion and productive cough. At the time of my exam, patient was afebrile, well-appearing, well-hydrated, not hypoxic, non-toxic and in no acute distress and appropriate for outpatient treatment and management. I suspect initial etiology viral bronchitis however given constellation and duration of symptoms as well as clinical exam I am concerned she is developing a bacterial infection. I am going to start her on doxycycline. Discussed signs and symptoms, progression, and treatment. Patient education provided and discussed along with printed information regarding treatment and follow-up. Patient advised to follow-up with patient's PCP in 3-5 days if no improvement in symptoms. Discussed signs/symptoms and red flags to monitor for and should symptoms worsen, advised patient to go to nearest ER for evaluation. Patient agreeable to plan and verbalized understanding. Pt discharged home in stable condition. (J22) Lower respiratory tract infection (primary encounter diagnosis) Plan: doxycycline hyclate (VIBRAMYCIN) 100 mg capsule, methylPREDNISolone (MEDROL, GOLD,) 4 mg Dose-Pack 1) doxycycline twice daily for 7 days. - drink a full glass of water with each dose - do not take with milk/dairy products - avoid sun exposure - it raises your risk for burn - if you take calcium or iron supplements, do not take them while you take this, or take them at a different time of day - stay upright for 30 minutes after taking this medicine 2) saline nasal rinses 3) increase fluids 4) Medrol dose pack as instructed 5) over the counter decongestant for (more content not included)...[facility]05-19-2024 Instructions* Patient Instructions* Tish London PA-C - 12/15/2023 12:14 PM EDT 1) doxycycline twice daily for 7 days. - drink a full glass of water with each dose - do not take with milk/dairy products - avoid sun exposure - it raises your risk for burn - if you take calcium or iron supplements, do not take them while you take this, or take them at a different time of day - stay upright for 30 minutes after taking this medicine 2) saline nasal rinses 3) increase fluids 4) Medrol dose pack as instructed 5) over the counter decongestant for 5-7 days 6) if not improving in 5-7 days you should be reevaluated by primary provider. If develops persistent fevers past 5 days, chest pain, difficulty breathing, severe headache, neck pain/stiffness go to ER documented in this encounterA[facility] History of Present illness Narrative* Tish London PA-C - 12/15/2023 12:10 PM EDT This is a 53-year-old female here with a week of chest congestion, productive cough with yellow phlegm little bit of nausea and some drainage down her throat. She tried [id number] medications without much relief. Denies fevers, chills, chest pain, hemoptysis, ear or throat pain, nasal congestion or drainage, vomiting or diarrhea, leg swelling, weakness. No history of asthma or COPD. The history is provided by the patient. Cough Pertinent negatives include no chest pain, no chills, no sore throat and no eye redness. 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 norethindrone-e.estradiol-iron (LO LOESTRIN FE) 1 mg-10 mcg (24)/10 mcg (2) Take 1 tablet by mouth once daily. 84 tablet 3 lisinopril (ZESTRIL, PRINIVIL) 5 mg tablet copper (PARAGARD) 380 square mm intrauterine device 1 Intra Uterine Device by INTRAUTERINE route. Placed 05/11/2020 No current facility-administered medications for this visit. Social History Tobacco Use Smoking status: Never Smokeless tobacco: Never Vaping Use Vaping Use: Never used Substance Use Topics Alcohol use: No Drug use: No Review of Systems Constitutional: Negative for chills and fever. HENT: Positive for congestion. Negative for sinus pain and sore throat. Eyes: Negative for discharge and redness. Respiratory: Positive for cough and sputum production. Negative for stridor. Cardiovascular: Negative for chest pain. Gastrointestinal: Negative for diarrhea and vomiting. Skin: Negative for rash. Neurological: Negative for dizziness. BP 130/84 Pulse 82 Temp 97.9 Resp 20 SpO2 98% LMP 11/10/2023 Physical Exam Vitals and nursing note reviewed. Constitutional: General: She is not in acute distress. Appearance: She is not ill-appearing or toxic-appearing. HENT: Head: Normocephalic and atraumatic. Right Ear: Tympanic membrane, ear canal and external ear normal. There is no impacted cerumen. Left Ear: Tympanic membrane, ear canal and external ear normal. There is no impacted cerumen. Nose: Congestion present. Mouth/Throat: Mouth: Mucous membranes are moist. Pharynx: Oropharynx is clear. No oropharyngeal exudate. Comments: Mild posterior pharyngeal erythema with cobblestoning. Eyes: Conjunctiva/sclera: Conjunctivae normal. Cardiovascular: Rate and Rhythm: Normal rate and regular rhythm. Pulmonary: Effort: No respiratory distress. Breath sounds: No stridor. No wheezing, rhonchi or rales. Comments: Slightly diminished breath sounds to the lower lung gastelum bilaterally and posteriorly. Musculoskeletal: Cervical back: Neck supple. Comments: Moves all extremities x 4 spontaneously without difficulty. Skin: General: Skin is warm and dry. Neurological: Mental Status: She is alert. Comments: Awake and alert. Motor gross intact. Steady gait. This is a 53-year-old female here with chest congestion and productive cough. At the time of my exam, patient was afebrile, well-appearing, well-hydrated, not hypoxic, non-toxic and in no acute distress and appropriate for outpatient treatment and management. I suspect initial etiology viral bronchitis however given constellation and duration of symptoms as well as clinical exam I am concerned she is developing a bacterial infection. I am going to start her on doxycycline. Discussed signs and symptoms, progression, and treatment. Patient education provided and discussed along with printed information regarding treatment and follow-up. Patient advised to follow-up with patient's PCP in 3-5 days if no improvement in symptoms. Discussed signs/symptoms and red flags to monitor for and should symptoms worsen, advised patient to go to nearest ER for evaluation. Patient agreeable to plan and verbalized understanding. Pt discharged home in stable condition. (J22) Lower respiratory tract infection (primary encounter diagnosis) Plan: doxycycline hyclate (VIBRAMYCIN) 100 mg capsule, methylPREDNISolone (MEDROL, GOLD,) 4 mg Dose-Pack 1) doxycycline twice daily for 7 days. - drink a full glass of water with each dose - do not take with milk/dairy products - avoid sun exposure - it raises your risk for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 include: General sense of anxiety and fear Recurring thoughts or nightmares about the accident Trouble sleeping or changes in appetite Feeling depressed, sad or low in energy Irritable or easily upset Feeling the need to avoid activities, places or people that remind you of the accident In most cases, these are normal reactions and are not severe enough to get in the way of your usualactivities. These feelings usually go away within a few days, or sometimes after a few weeks. Home care Muscle pain, sprains and strains Even if you have no visible injury, it is not unusual to be sore all over, and have new aches and pains the first couple of days after an accident. Take it easy at first, and don't over do it. Initially, don't try to stretch out the sore spots. If there is a strain, stretching may make it worse. Massage may help relax the muscles without stretching them. You can use an ice pack or cold compress on and off to the sore spots 10 to 20 minutes at a time, as often as you feel comfortable. This may help reduce the inflammation, swelling and pain. You can make an ice pack by wrapping a plastic bag of ice cubes or crushed ice in a thin towel or using a bagof frozen peas or corn. Wound care If you have any scrapes or abrasions, they usually heal within 10 days. It is important to keep theabrasions clean while they first start to heal. However, an infection may occur even with proper care, so watch for early signs of infection such as: oIncreasing redness or swelling around the wound oIncreased warmth of the wound oRed streaking lines away from the wound oDraining pus Medicines Talk to your healthcare provider before taking new medicines, especially if you have other medical problems or are taking other medicines. If you need anything for pain, you can take acetaminophen or ibuprofen, unless you were given a different pain medicine to use. Talk with your healthcare provider before using these medicines if you have chronic liver or kidney disease, or ever had a stomach ulcer or gastrointestinal bleeding, or are taking blood thinner medicines. Be careful if you are given prescription pain medicines, narcotics, or medicine for muscle spasm. They can make you sleepy, dizzy and can affect your coordination, reflexes and judgment. Don't drive or do work where you can injure yourself when taking them. Follow-up care Follow up with your healthcare provider, or as advised. If emotional or mental symptoms last more than 3 weeks, follow up with your healthcare provider. You may have a more serious traumatic stress reaction. There are treatments that can help. If you had a concussion, be sure you or a friend writesdown any instructions if you are still dazed or confused. If X-rays or CT scans were done, you will be notified if there are any concerns that affect your treatment. Call 911 Call 911 if any of these occur: Trouble breathing Confused or difficulty arousing Fainting or loss of consciousness Rapid heart rate Trouble with speech or vision, weakness of an arm or leg or, if one pupil of your eye becomes larger than the other Trouble walking or talking, loss of balance, numbness or weakness in one side of your body, facial droop When to seek medical advice Call your healthcare provider right away if any of the following occur: New or worsening headache or vision problems New or worsening neck, back, abdomen, arm or leg pain Nausea or vomiting Dizziness or vertigo Redness, swelling, or pus coming from any wound [phone] [employer]. [address] [place] [address]. All rights reserved. This information is not intended as a substitute for professional medical care. Always follow yourhealthcare professional's instructions. Follow Up Care 08/28/2021 18:25:52 With:Call Physician Referral Address:Unknown When:2-4 days With:PHYSICIAN, NONE Address:Unknown When:2-4 days [facility] 12-17-2021 Hospital Discharge instructions Patient Education 07/14/2021 11:40:55 Phenazopyridine tablets Phenazopyridine tablets What is this medicine? PHENAZOPYRIDINE (fen az oh PEER i zenaida) is a pain reliever. It is used to stop the pain, burning, or discomfort caused by infection or irritation of the urinary tract. This medicine is not an antibiotic. It will not cure a urinary tract infection. How should I use this medicine? Take this medicine by mouth with a glass of water. Follow the directions on the prescription label.Take after meals. Take your doses at regular intervals. Do not take your medicine more often than directed. Do not skip doses or stop your medicine early even if you feel better. Do not stop taking except on your doctor's advice. Talk to your athletic director regarding the use of this medicine in children. Special care may be needed. What side effects may I notice from receiving this medicine? Side effects that you should report to your doctor or health housekeeper child care as soon as possible: allergic reactions like skin rash, itching or hives, swelling of the face, lips, or tongue blue or purple color of the skin difficulty breathing fever less urine unusual bleeding, bruising unusual tired, weak vomiting yellowing of the eyes or skin Side effects that usually do not require medical attention (report to your doctor or health housekeeper child care if they continue or are bothersome): dark urine headache stomach upset What may interact with this medicine? Interactions are not expected. What if I miss a dose? If you miss a dose, take it as soon as you can. If it is almost time for your next dose, take only that dose. Do not take double or extra doses. Where should I keep my medicine? Keep out of the reach of children. Store at room temperature between 15 and 30 degrees C (59 and 86 degrees F). Protect from light andmoisture. Throw away any unused medicine after the expiration date. What should I tell my health care provider before I take this medicine? They need to know if you have any of these conditions: xwbsuoy-[id number]-ckmcygxja dehydrogenase (G6PD) deficiency kidney disease an unusual or allergic reaction to phenazopyridine, other medicines, foods, dyes, or preservatives or trying to get breast-feeding What should I watch for while using this medicine? Tell your doctor or health housekeeper child care if your symptoms do not improve or if they get worse. This medicine colors body fluids red. This effect is harmless and will go away after you are done taking the medicine. It will change urine to an dark orange or red color. The red color may stain clothing. Soft contact lenses may become permanently stained. It is best not to wear soft contact lenses while taking this medicine. If you are diabetic you may get a false positive result for sugar in your urine. Talk to your health care provider. NOTE:This sheet is a summary. It may not cover all possible information. If you have questions about this medicine, talk to your doctor, pharmacist, or health care provider. Copyright 2019 [employer] Follow Up Care 07/14/2021 07:57:22 With:Go to emergency room if symptoms worsen Address:Unknown When:2-4 days [facility] 12-13-2021 NoteHNO ID: [id number] Author: Lia Phoenix PA-C Service: ? Author Type: Physician Engineering Inspector Type: Progress Notes Filed: 07/10/2021 12:25 PM Note Text: SUBJECTIVE: Vandana Brown is a 50 year old female who c/o urinary frequency, nausea, lower back pain, and aching with urination. States she is up 6-7 times nightly to urinate. Pt was seen 06/09/21 for a possible UTI and was empirically treated with Bactrim. She asked for Diflucan a few days later. Her urine cx showed a very small amount of enterococcus and there was no pharmacy guidance for treatment so she was switched to Augmentin 06/12/21. She still felt urinary frequency and noticed an odor to urine 06/28/21 so she was prescribed Augmentin again and Diflucan. She didn't notice any improvement after taking Augmentin. Urine obtained: large amount blood, +leukocytes, +protein. Patient's last menstrual period was 10/03/2020 (approximate). If her urine culture is negative she needs to see her electrolytic etcher or a urologist. Encouraged flu vaccine. FAMILY HISTORY Problem Relation Age of Onset - other (Colon Polyps) Father - Breast Cancer Maternal Aunt 45 recurrence age 70s? - Colon Cancer Maternal Aunt 80 PAST MEDICAL HISTORY Diagnosis Date - Abnormal Pap smear of cervix 09/2020 LGSIL 10/16 colp benign 06/18 ascus/-HPV - Elevated DHEA (HCC) 08/2019 - Hormone disturbance - Hypertension - Perimenopausal disorder - Polycystic ovary syndrome - Urinary tract infection PAST SURGICAL HISTORY Procedure Laterality Date - LIVING DONOR NEPHRECTOMY, OPEN 05/11/2009 kidney donor - REPAIR ABDOMINAL HERNIA Social History Tobacco Use - Smoking status: Never Smoker - Smokeless tobacco: Never Used Vaping Use - Vaping Use: Never used Substance Use Topics - Alcohol use: No - Drug use: No Current Outpatient Medications Medication Sig - norethindrone-e.estradiol-iron (LO LOESTRIN FE) 1 mg-10 mcg (24)/10 mcg (2) Take 1 tablet by mouth once daily. - lisinopril (ZESTRIL, PRINIVIL) 5 mg tablet - copper (PARAGARD T 380A) 380 square mm intrauterine device 1 Intra Uterine Device by INTRAUTERINE route. Placed 07/19/10 - doxycycline monohydrate (MONODOX) 100 mg capsule Take 1 capsule by mouth twice daily for 7 days. No current facility-administered medications for this visit. ALLERGIES Allergen Reactions - Topiramate Other: See Comments OBJECTIVE BP 124/82 Ht 5' 8.5 (1.74m) Wt 233 lb (105.7kg) LMP 10/03/2020 BMI 34.91 kg/(m2). No exam today. ASSESSMENT/PLAN: 1. Urinary frequency - ICD9: 788.41, ICD10: R35.0 (primary diagnosis) - [facility] cx done - DOXYCYCLINE MONOHYDRATE 100 MG CAPSULE 2. Dysuria - ICD9: 788.1, ICD10: R30.0 - DOXYCYCLINE MONOHYDRATE 100 MG CAPSULE 3. Hematuria, unspecified type - ICD9: 599.70, ICD10: R31.9 - DOXYCYCLINE MONOHYDRATE 100 MG CAPSULE 4. Needs flu shot - ICD9: V04.81, ICD10: Z23 Lia Jessica Phoenix PA-C Return in about 3 months (around 10/12/2021) for Annual Exam.[facility]11-17-2021 NoteHNO ID: [id number] Author: Angelica Velasquez MD Service: ? Author Type: Physician Type: Progress Notes Filed: 06/14/2021 12:06 PM Note Text: The following approved medication requests have been transmitted electronically. Signed Prescriptions Disp Refills amoxicillin-clavulanic acid (AUGMENTIN) 875-125 mg per tablet 14 tablet 0 Sig: Take 1 tablet by mouth every 12 hours for 7 days. Angelica Velasquez, [facility]11-12-2021 NoteHNO ID: [id number] Author: Angelica Velasquez MD Service: ? Author Type: Physician Type: Progress Notes Filed: 06/09/2021 9:46 AM Note Text: MELIDA Brown is a 50 year old woman who presents for repap. Last pap-10/12/20 LGSIL. [place]-10/21/20 no abnormal cells. Patient's last menstrual period was 10/03/2020 (lmp unknown). Pt c/o urinary frequency. Urine obtained: +leukocytes, +protein, + blood. Pt c/o weight gain since taking Balcoltra. HISTORIES FAMILY HISTORY Problem Relation Age of Onset - other (Colon Polyps) Father - Breast Cancer Maternal Aunt 45 recurrence age 70s? - Colon Cancer Maternal Aunt 80 PAST MEDICAL HISTORY Diagnosis Date - Elevated DHEA (HCC) 08/2019 - Hormone disturbance - Hypertension - Low grade squamous intraepithelial lesion on cytologic smear of cervix (LGSIL) 09/2020 LGSIL, colp - Perimenopausal disorder - Polycystic ovary syndrome PAST SURGICAL HISTORY Procedure Laterality Date - LIVING DONOR NEPHRECTOMY, OPEN 05/11/2009 kidney donor - REPAIR ABDOMINAL HERNIA is allergic to topiramate. Current Outpatient Medications Medication Sig - levonorgest-eth.estradiol-iron (BALCOLTRA) 0.1 mg-0.02 mg (21)/36.5 mg(7) tab Take 1 tablet by mouth once daily. - lisinopril (ZESTRIL, PRINIVIL) 5 mg tablet - copper (PARAGARD T 380A) 380 square mm intrauterine device 1 Intra Uterine Device by INTRAUTERINE route. Placed 07/19/10 - azithromycin (ZITHROMAX) 250 mg tablet 250 mg. (Patient not taking: Reported on 06/09/2021 ) - Umlvbfmuxkdbzkv-Lcxhbvecm-DG 2-30-10 mg/5 mL syrup D-Methorphan Hb/P-Epd HCl/Bpm* (Bromfed Dm Cough Syrup*) 118 ML SYRUP Active 10 Oral EVERY 6 HOURS NEEDED as needed for As Needed-COUGH AND CONGESTION 240 June 02, 2018 3:23pm (Patient not taking: Reported on 06/09/2021) - sulfamethoxazole-trimethoprim (BACTRIM DS,SEPTRA DS) 800-160 mg per tablet Sulfamethoxazole/Trimethoprim* (Bactrim Ds Tab*) 1 EACH TABLET Active 1 Oral 2 TIMES DAILY for infection August 28, 2019 6:05pm (Patient not taking: Reported on 06/09/2021) - ORSYTHIA 0.1-20 mg-mcg per tablet (Patient not taking: Reported on 06/09/2021 ) - metoprolol tartrate, short acting, (LOPRESSOR) 25 mg tablet Take 25 mg by mouth twice daily. (Patient not taking: Reported on 06/09/2021 ) - buPROPion SR (ZYBAN SR; WELLBUTRIN SR) 150 mg 12 hr tablet (Patient not taking: Reported on 06/09/2021 ) - topiramate (TOPAMAX) 50 mg tablet (Patient not taking: Reported on 06/09/2021 ) No current facility-administered medications for this visit. REVIEW OF SYSTEMS GENERAL: No weight loss, malaise or fevers HEENT: No changes in hearing or vision NECK: Negative for lumps, goiter, pain and significant neck swelling RESPIRATORY: Negative for cough, wheezing, dyspnea or shortness of breath CARDIOVASCULAR: Negative for chest pain or palpitations GI: Negative for abdominal discomfort, blood in stools or black stools, change in bowel habit, diarrhea, nausea, vomiting, constipation : No history of dysuria, frequency or incontinence RESEARCH MICROBIOLOGIST: Negative for abnormal vaginal bleeding, abnormal vaginal discharge or Breast symptoms ENDOCRINE: Negative for cold or heat intolerance, polyuria, polydipsia and goiter NEURO: No history of headaches, syncope, paralysis, seizures or tremors OBJECTIVE BP 130/82 Ht 5' 8.5 (1.74m) Wt 230 lb (104.3kg) LMP 10/03/2020 BMI 34.46 kg/(m2). HEENT: Within normal limits PELVIC: EGBUS: Normal female external genitalia, no lesions or cysts VAGINA: No discharge, no bleeding, well-rugated, no lesions CERVIX: pap done RECTOVAGINAL: Deferred EXTREMITIES: No edema, no calf tenderness NEUROLOGICAL: Grossly intact ASSESSMENT/PLAN: 1. Urinary tract infection without hematuria, site unspecified - ICD9: 599.0, ICD10: N39.0 (primary diagnosis) acute [facility] urine sent - SULFAMETHOXAZOLE 800 MG-TRIMETHOPRIM 160 MG TABLET 2. LGSIL on Pap smear of cervix - ICD9: 795.03, ICD10: R87.612 - PAP REFLEX HPV MRNA WHEN ASCUS - HUMAN PAPILLOMA VIRUS, MRNA 3. Cervical high risk HPV (human papillomavirus) test positive - ICD9: 795.05, ICD10: R87.810 - PAP REFLEX HPV MRNA WHEN ASCUS - HUMAN PAPILLOMA VIRUS, MRNA 4. Malaise and fatigue - ICD9: 780.79, ICD10: R53.81, R53.83 - TSH BLD - THYROID PEROXIDASE ANTIBODY BLOOD - T3 FREE BLD - T4 FREE/FREE THYROX - CBC 5. Unintended weight gain - ICD9: 783.1, ICD10: R63.5 6. Hormone imbalance - ICD9: 259.9, ICD10: E34.9 - DHEA-S BLD - TESTOSTERONE, FREE AND TOTAL 7. Encounter for surveillance of contraceptive pills - ICD9: V25.41, ICD10: Z30.41 - LO LOESTRIN FE 1 MG-10 MCG (24)/10 MCG (2) TABLET MD Edelmira Castorena No follow-ups [facility] file[facility]ments Appointment Date:07/17/2021 03:20:00 PM Scheduled Provider:DARIO CUEVAS Location:UROLOGY Appointment Type:URO INSTRUCTIONAL LEADER Diagnostic Tests Pending * Urine Culture 07/14/21 [facility] Evaluation + Plan note Future Appointments Appointment Date:07/17/2021 03:20:00 PM Scheduled Provider:DARIO CUEVAS Location:UROLOGY Appointment Type:URO INSTRUCTIONAL LEADER [facility] Evaluation note* Diagnosis Gynecologic exam normal- Primary Cervical cancer screening Screening for malignant neoplasm of the cervix Breast cancer screening by mammogram Screening for osteoporosis Special screening for osteoporosis Menopause Symptomatic menopausal or female climacteric states Encounter for surveillance of contraceptive pills Surveillance of previously prescribed contraceptive pill documented in this [facility] Diagnosis Women's annual routine gynecological examination- Primary Screening for malignant neoplasm of cervix Screening for malignant neoplasm of the cervix Breast cancer screening by mammogram Encounter for colorectal cancer screening Special screening for malignant neoplasms, colon Screening for osteoporosis Special screening for osteoporosis Menopause Symptomatic menopausal or female climacteric states Encounter for routine checking of intrauterine contraceptive device (IUD) PCOS (polycystic ovarian syndrome) Polycystic ovaries Encounter for surveillance of contraceptive pills Surveillance of previously prescribed contraceptive pill Perimenopausal Symptomatic menopausal or female climacteric states Urinary frequency documented in this encounter [facility]* Diagnosis Lower respiratory tract infection- Primary Other diseases of respiratory system, not elsewhere classified documented in this encounter [facility]* Diagnosis Encounter for surveillance of contraceptive pills Surveillance of previously prescribed contraceptive pill documented in this encounter [facility]* Diagnosis Women's annual routine gynecological examination- Primary Screening for malignant neoplasm of cervix Screening for malignant neoplasm of the cervix Breast cancer screening by mammogram Encounter for colorectal cancer screening Special screening for malignant neoplasms, colon Screening for osteoporosis Special screening for osteoporosis Encounter for routine checking of intrauterine contraceptive device (IUD) Encounter for surveillance of contraceptive pills Surveillance of previously prescribed contraceptive pill Perimenopausal Symptomatic menopausal or female climacteric states Menopause Symptomatic menopausal or female climacteric states documented in this encounter [facility] course Narrative No data available for this section [facility] Hospital Discharge instructions No data available for this section [facility] Progress note No data available for this section [facility] Reason for referral (narrative)* Diagnostic Procedure Only (Routine) - Pending Review Specialty Diagnoses / Procedures Referred By Contac t Referred To Contact [facility] Diagnoses Gynecologic exam normal Breast cancer screening by mammogram Procedures ALVIN SCREENING W HERLINDA SCREENING DIGITAL BREAST TOMOSYNTHESIS BI SCREENING MAMMOGRAPHY BI 2-VIEW BREAST INC Angelica Mcleod MD [address] [address] [facility] [address] [place] [phone] Referral ID Status Reason Start Date Expiration Date Visits Requested Visits Authorized [id number] Pending Review Auto-Generat ed Referral 03/05/2022 04/04/2023 1 1 * Diagnostic Procedure Only (Routine) - Pending Review Specialty Diagnoses / Procedures Referred By Contac t Referred To Contact [facility] Diagnoses Gynecologic exam normal Breast cancer screening by mammogram Procedures ALVIN SCREENING SCREENING MAMMOGRAPHY BI 2-VIEW BREAST INC Angelica Mcleod MD [address] [address] [facility] [address] [place] [address] Referral ID Status Reason Start Date Expiration Date Visits Requested Visits Authorized [id number] Pending Review Auto-Generat ed Referral 03/05/2022 04/04/2023 1 1 [facility] for referral (narrative)* Diagnostic Procedure Only (Routine) - New Request Specialty Diagnoses / Procedures Referred By Contac t Referred To Contact XR IMAGING Diagnoses Screening for osteoporosis Menopause Procedures DXA-AXIAL SKELETON DXA BONE DENSITY STUDY 1/> SITES AXIAL Lia Strauss PA-C [address] [address] [place] [address] Referral ID Status Reason Start Date Expiration Date Visits Requested Visits Authorized [id number] New Request Auto-Generat ed Referral 06/19/2025 1 1 * Diagnostic Procedure Only (Routine) - New Request Specialty Diagnoses / Procedures Referred By Filipe rivas Referred To Contact [facility] Diagnoses Breast cancer screening by mammogram Procedures ALVIN SCREENING W HERLINDA SCREENING DIGITAL BREAST TOMOSYNTHESIS BI SCREENING MAMMOGRAPHY BI 2-VIEW BREAST INC Lia Nieto PA-C [address] [employer] [place] [place] [address] [facility] [address] [place] [address] Referral ID Status Reason Start Date Expiration Date Visits Requested Visits Authorized [id number] New Request Auto-Generat ed Referral 06/19/2025 1 1 [facility] Summary Purpose Family History No Family History Records FoundNo Family History Records FoundNo Family History Records Found No data available for this section No data available for this section No Family History Records FoundNo Family History Records Found Advance Directives No Advanced Directives Records FoundNo Advanced Directives Records FoundNo Advanced Directives Records FoundNo Advanced Directives Records FoundNo Advanced Directives Records Found Reason for Referral Specialty Diagnoses / Procedures Referred By Filipe rivas Referred To Contact Diagnoses Urinary frequency Procedures CONSULT TO [facility] Lia Phoenix PA-C [address] [employer] [place] [place] [address] Referral ID Status Reason Start Date Expiration Date Visits Requested Visits Authorized [id number] Ref Not Required PCP Requested Referral 03/08/2023 03/07/2024 1 1 Specialty Diagnoses / Procedures Referred By Filipe rivas Referred To Contact [facility] Diagnoses Breast cancer screening by mammogram Procedures ALVIN SCREENING SCREENING MAMMOGRAPHY BI 2-VIEW BREAST INC Lia Nieto PA-C [address] [place] [place] [address] [facility] [address] [place] [address] Referral ID Status Reason Start Date Expiration Date Visits Requested Visits Authorized [id number] Pending Review Auto-Generat ed Referral 03/08/2023 04/06/2024 1 1 Additional Source Comments Source Comments (unrecognize d section and content) In the event this informatio n is protected by the Federal Confidentiality of Alcohol and Drug Abuse Patient Records regulations: The Federal rules restrict any use of the information to criminally investigate or prosecute any alcohol or drug abuse patient.[facility] the event this information is protected by the Federal Confidentiality of Alcohol and Drug Abuse Patient Records regulations: The Federal rules restrict any use of the information to criminally investigate or prosecute any alcohol or drug abuse patient.[facility] the event this information is protected by the Federal Confidentiality of Alcohol and Drug Abuse Patient Records regulations: The Federal rules restrict any use of the information to criminally investigate or prosecute any alcohol or drug abuse patient.[facility] the event this information is protected by the Federal Confidentiality of Alcohol and Drug Abuse Patient Records regulations: The Federal rules restrict any use of the information to criminally investigate or prosecute any alcohol or drug abuse patient.[facility] the event this information is protected by the Federal Confidentiality of Alcohol and Drug Abuse Patient Records regulations: The Federal rules restrict any use of the information to criminally investigate or prosecute any alcohol or drug abuse patient.[facility] the event this information is protected by the Federal Confidentiality of Alcohol and Drug Abuse Patient Records regulations: The Federal rules restrict any use of the information to criminally investigate or prosecute any alcohol or drug abuse patient.[facility] Center[facility] the event this information is protected by the Federal Confidentiality of Alcohol and Drug Abuse Patient Records regulations: The Federal rules restrict any use of the information to criminally investigate or prosecute any alcohol or drug abuse patient.[facility] Reason for Visit (unrecogniz ed section and content) 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 Reason Comments Cough Congestion, nausea, chest feels tightX 4 days Reason Onset Date Comments Refill Request 04/23/2024 Care Teams (unrecognized sec tion and content) Rubbing Bed Operator Relationship Specialty Start Date End Date Billie Razo MD [address] [place] [phone] PCP - General Family Practice 05/23/18 Angelica Velasquez MD [address] [address] Gynecology 05/23/18 Valentin Haji MD [address] [place] [address] Consulting Nephrology 09/21/19 Rubbing Bed Operator Relationship Specialty Start Date End Date Billie Razo MD [address] [place] [phone] PCP - General Family Medicine 05/23/18 Angelica Velasquez MD [address] [address] Gynecology 05/23/18 Valentin Haij MD [address] [place] [address] Consulting Nephrology 09/21/19 Rubbing Bed Operator Relationship Specialty Start Date End Date Billie Razo MD [address] [place] [phone] PCP - General Family Medicine 05/23/18 Angelica Velasquez MD [address] [address] Gynecology 05/23/18 Valentin Haji MD [address] [place] [address] Consulting Nephrology 09/21/19 Rubbing Bed Operator Relationship Specialty Start Date End Date Billie Razo MD [address] [place] [phone] PCP - General Family Medicine 05/23/18 Angelica Velasquez MD [address] [place], [place] [address] [facility] [address] [place] [address] Gynecology 05/23/18 Valentin Haji MD [address] [place] [address] Consulting Nephrology 09/21/19 Rubbing Bed Operator Relationship Specialty Start Date End Date Billie Razo MD [address] [place] [phone] PCP - General Family Medicine 05/23/18 Angelica Velasquez MD [facility] [address] [place] [address] Gynecology 05/23/18 Valentin Haji MD [address] [place] [address] Consulting Nephrology 09/21/19 Rubbing Bed Operator Relationship Specialty Start Date End Date Billie Razo MD [address] [place] [phone] PCP - General Family Medicine 05/23/18 Angelica Velasquez MD [address] [facility] [address] [place] [address] Gynecology 05/23/18 Valentin Haji MD [address] [place] [address] Consulting Nephrology 09/21/19 Rubbing Bed Operator Relationship Specialty Start Date End Date Billie Razo MD [address] [place] [address] PCP - General Family Medicine 05/23/18 Angelica Velasquez MD [address] [facility] [address] [place] [address] Gynecology 05/23/18 Valentin Haji MD [address] [place] [address] Consulting Nephrology 09/21/19 INFORMATION SOURCE (unrecogn ized section and content) DATE CREATED AUTHOR 03/06/2022 [facility] DATE CREATED AUTHOR AUTHOR'S ORGANIZ ATION 11/01/2022 [facility] DATE CREATED AUTHOR AUTHOR'S ORGANIZ ATION 12/17/[address] [facility] DATE CREATED AUTHOR AUTHOR'S ORGANIZ ATION 12/23/2024 [facility] N DATE CREATED AUTHOR AUTHOR'S ORGANIZ ATION 12/31/2024 [facility] FOR RECORDS PERTAINING TO PATIENTS WHO ARE OR HAVE BEEN ENROLLED IN A CHEMICAL DEPENDENCY/SUBSTANCEABUSE PROGRAM, SOME INFORMATION MAY BE OMITTED. This clinical summary was aggregated from multiple sources. Caution should be exercised in using it in the provision of clinical care. This summary normalizes information from multiple sources, and as a consequence, information in this document may materially change the coding, format and clinical context of patient data. In addition, data may be omitted in some cases. CLINICAL DECISIONS SHOULD BE BASED ON THE PRIMARY CLINICAL RECORDS. [employer] [facility]. provides no warranty or guarantee of the accuracy or completeness of information in this document.
--- NOTE | 2025-07-07 15:09 | PCM.PRE.AN2 ---
ASA Classification* ASA Classification ASA Classification: 2 Assessment & Plan Anesthesia* Anesthesia Assessment Anesthesia Assessment: Discussed sedation and/or anesthesia options, risks, benefits, and alternatives with patient/parents/legal guardian/POA. Questions invited. The patient/parents/legal guardian/POA seems to understand and agrees to proceed with anesthesia plan. Reviewed the physical assessment, medical history, allergy history and patient home medications list prior to surgery/procedure/anesthetic and documented any changes. Performed airway and anesthesia risk assessments. Anesthesia Type Anesthesia Type: MAC History Source History Obtained from:: Patient and Chart Anesthesia Focused Assessment* Temperature: 97.7 F Pulse Rate: 63 Blood Pressure: 149/91 Respiratory Rate: 18 Pulse Ox: 97 Oxygen Delivery Method: Room Air Airway Assessment Mouth opens: >3 cm Mallampati Score: II Teeth Condition: Intact Labs Anesthesia Preop lab: CBC CHEMISTRY COAG Pre-Assessment Diagnosis/Proposed Procedure Planned Operative Procedure(s): EGD Anesthesia History Anesthesia History - pantograph i engraver: Anesthesia History - pantograph i engraver Hx Hospitalization Yes: 10/2024 [facility] [place] 07/05/25 10:38 Any Problems With Anesthesia No 07/05/25 10:38 Cholinesterase deficiency No 07/05/25 10:38 You/Your Family Experience No 07/05/25 10:38 fever (hyperthermia) with Relationship Recent Exposure to Contagious No 07/07/25 14:40 Disease Does patient have nerve No 07/05/25 10:38 stimulator Patient instructed to have device shut off --Does patient have Pacemaker No 07/07/25 14:40 or ICD? When Was Last Pacemaker Check QUESTION #4 FULL TEXT: You/Your Family Experience fever (hyperthermia) with Anesthesia Last Oral Intake Last Oral intake: Last Oral Intake NPO since 23:00 07/07/25 14:40 Meds taken in AM with sips of Yes 07/07/25 14:40 water? Meds patient instructed to metoprolol 07/07/25 14:40 take am of surgery PONV PONV - pantograph i engraver: PONV - pantograph i engraver Female Yes 07/05/25 10:38 HX of Motion Sickness No 07/05/25 10:38 HX of N/V After Surgery No 07/05/25 10:38 Non-Smoker Yes 07/05/25 10:38 Duration of Surgery greater No 07/05/25 10:38 than 60 minutes Number of Risk Factors 2 07/05/25 10:38 PONV Score Moderate Risk 07/05/25 10:38 Height & Weight Height & Weight: Anesthesia: Height & Weight Height 5 ft 8 in 07/07/25 14:40 Weight: 110 kg 07/07/25 14:40 Body Mass Index (BMI) 36.8 07/07/25 14:40 Respiratory Assessment Respiratory Assessment - pantograph i engraver: Respiratory Tract Infection Hx - pantograph i engraver Hx Respiratory Tract Infection No 07/05/25 10:38 STOP Sleep Apnea STOP Sleep Apnea - pantograph i engraver: STOP Sleep Apnea - pantograph i engraver Hx Hypertension Yes: CONTROLLED WITH MED 07/05/25 10:38 Hx Sleep Apnea No 07/05/25 10:38 CPAP BIPAP Do you snore loudly (louder No 07/05/25 10:38 than talking or can be heard Do you often feel tired/ No 07/05/25 10:38 fatigued/ sleepy during daytime? Has anyone observed you stop No 07/05/25 10:38 breathing during sleep? STOP Results Negative 07/05/25 10:38 QUESTION #5 FULL TEXT : Do you snore loudly (louder than talking or can be heard through closed doors)? 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 Specify any problems Hx of Preganancy in last 3 N/A 07/05/25 10:38 Months Nurse Filling Out Transfusion NBUCHER 07/05/25 10:38 & Questions: Date: 07/05/25 07/05/25 10:38 Time: 10:39 07/05/25 10:38 Patient unable to answer at this time (ie. confused, unrespo /Reproduction History /Reproductive History - pantograph i engraver: /Reproductive Hx- pantograph i engraver Hx Now No 07/05/25 10:38 Gestational Age (in weeks): EDC: Hx Hx Para Hx Section SAB No 07/05/25 10:38 Does the father of the baby or his family experience fever w Father of the baby Malignant Hypertension history comment Active Medications Active Medications: Current Medications Generic Name Dose Route Start Last Admin Trade Name Freadrienne PRN Reason Stop Dose Admin Lactated Ringer's 1,000 mls @ 15 mls/hr 07/07/25 14:45 07/07/25 14:46 IV 15 mls/hr .Q48H JERMAINE Administration PFSH Medical History Wears glasses History of diverticulitis Hypertension Home Medications ?Medication ?Instructions ?Recorded ?Last Taken ?Type metoprolol succinate 25 mg 25 mg PO BID 06/16/25 07/07/25 09:00 History tablet,extended release 24 hr Allergy/AdvReac Type Severity Reaction Status Date / Time No Known Allergies Allergy Verified 07/05/25 10:37 Surgical History History of nephrectomy History of cholecystectomy Social History Smoking Status: Never smoker alcohol intake: never substance use type: does not use Addt'l Information Additional Findings: >4 Mets Review of Systems (Anesthesia) ROS Narrative System reviewed and no additional complaints, except as documented. Physical Exam Const alert, oriented x3 and average body habitus HEENT dentition normal Resp normal respiratory effort, normal air movement and clear to auscultation bilaterally Cardio regular rate and regular rhythm Neuro oriented x3 and moves all extremities
--- NOTE | 2025-07-07 15:13 | HP.PCM_ITS ---
HPI - General General Date of Admission: 07/07/25 Date of Service: 07/07/25 Chief Complaint: Dysphagia and odynophagia HPI Narrative KRISTI CALDERON, is a 54 F who presents [Chief Complaint: Pt s/p cholecystectomy w/ odynophagia, early satiety. Plan EGD; GERD/EoE.The patient reports painful swallowing and a burning/scratchy sensation localized to the throat area that worsens with eating. Describes the area as hot to touch externally over the throat. Sometimes feels like a cut or scrape internally with meals, and has had episodes of vomiting during meals (e.g., on June 04, vomited twice after eating steak). Food has felt as if it became stuck or popped out. Notes getting full quickly and not eating much despite appearances. States these symptoms have been present since 2013 and have progressively worsened, becoming unbearable recently. Tried omeprazole with little benefit. Wonders if symptoms may be related to recent surgery. Medical events: in September. In October, underwent emergency gallbladder surger ; .surgeon reported the gallbladder had gangrene. Patient is a prior kidney donor and has a single remaining kidney. Denies use of inhalers. Unsure about recent oral antibiotic use; may have received perioperative antibiotics but does not recall specifics. Does not get sick often. Avoids medications she perceives may affect the kidney. ] [facility] Medical History Wears glasses History of diverticulitis Hypertension Home Medications ?Medication ?Instructions ?Recorded ?Last Taken ?Type metoprolol succinate 25 mg 25 mg PO BID 06/16/2507/07 09:00 History tablet,extended release 24 hr Allergy/AdvReac Type Severity Reaction Status Date / Time No Known Allergies Allergy Verified 07/05/25 10:37 Surgical History History of nephrectomy History of cholecystectomy Social History Smoking Status: Never smoker alcohol intake: never substance use type: does not use ROS Constitutional Constitutional: Denies fatigue, fever(s), poor appetite, weight gain or weight loss Gastrointestinal Gastrointestinal: Denies belching, bloating, change in bowel habits, change in stool character, chewing difficulty, coffee ground emesis, constipation, cramping, diarrhea, dyspepsia, dysphagia, early satiety, excessive flatus, fecal incontinence, heartburn, hematemesis, hematochezia, hemorrhoids, loose stools, melena, nausea, odynophagia, rectal bleeding, tenesmus, vomiting or weight changes Vital Signs Vital Signs Vital Signs: 07/07/25 14:40 07/07/25 14:40 07/07/25 14:40 Temperature 97.7 F L Temperature Source Temporal Pulse Rate 63 Respiratory Rate 18 Respiratory Pattern Normal Blood Pressure 149/91 H Blood Pressure Mean 110 Blood Pressure Source Monitor Blood Pressure Position Semi-Fowlers Blood Pressure Location Left Arm Baseline BP 149/91 Pulse Ox 97 Oxygen Delivery Method Room Air 07/07/25 15:11 Temperature 97.7 F L Temperature Source Pulse Rate 63 Respiratory Rate 18 Respiratory Pattern Blood Pressure 149/91 H Blood Pressure Mean Blood Pressure Source Blood Pressure Position Blood Pressure Location Baseline BP Pulse Ox 97 Oxygen Delivery Method Weight Weight: 242 lb 8.136 oz Body Mass Index (BMI) 36.8 Physical Exam Const alert, oriented x3, no apparent distress and healthy appearing General Appearance: cooperative GI normal to inspection, nondistended, normoactive bowel sounds, soft to palpation, non-tender and non-distended Percussion: normal to percussion Rectal Exam: deferred Assessment & Plan Assessment/Plan (1) GERD (gastroesophageal reflux disease): (2) Dysphagia: PLAN: l Assessment and Plan Assessment and Plan (1) Dysphagia: Status: Acute (2) GERD (gastroesophageal reflux disease): Status: Acute Plan: Odynophagia and painful swallowing with meals : Patient describes painful, burning/scratchy sensation in the throat area that worsens with eating, present since 2013 and worsening; omeprazole provided little relief. Symptoms sometimes cause vomiting and sensation of food sticking. - Proceed with endoscopic evaluation (scope) to assess the esophagus and stomach. Postprandial vomiting : Vomiting episodes during meals, notably on June 04 after eating steak. - Proceed with endoscopic evaluation (scope) to assess for causes. Early satiety : Gets full quickly with small amounts of food. - Proceed with endoscopic evaluation (scope); patient asked whether jed roparesis could be seen on scope. Status post cholecystectomy for gangrenous gallbladder : Emergency gallbladder surgery in October; surgeon reported gangrene. Single kidney status post donation : Patient donated a kidney previously and is concerned about medications affecting renal function. Hypertension : On metoprolol currently; previously on lisinopril but discontinued due to facial droop-like issue; reports weight gain on metoprolol. Portions of this note were generated using voice recognition software ([employer]). I have reviewed the contents and every effort has been made to ensure accuracy; however, inadvertent errors in grammar, spelling, punctuation, or word choice may occur, that were not noted before signing the document and should not alter the intended clinical meaning.
--- NOTE | 2025-07-07 15:30 | EGD_PTH ---
PATIENT: KRISTI CALDERON LOC: EN U#:[id number] AGE/SX: 54/F ROOM: RE07/07/[address]: Dr. Rajat Reed DO : 1970 BED: DIS: 07/07/2025 SPEC #: [id number] RECD: 07/07/25 18:59 STATUS: CLINT IDALIA #: [id number] FANI: 07/07/25 15:[address]: Rajat Reed DEPT: SURGICAL PATHOLOGY RECD BY: Ric Pritchett ENTERED: 07/08/25 09:54 SP TYPE: EGD BIOPSY MATTEO DR: [facility] Tissues: A - Esophagus, NOS Procedures: Surgery Specimen Level IV HEADER OPERATION: EGD, biopsy, dilation PRE-OP DIAGNOSIS: Dysphagia, GERD TISSUE SUBMITTED: A- Random esophagus biopsy MICROSCOPIC DIAGNOSIS A. Esophagus, random, biopsy: - Squamous mucosa with reactive changes and rare eosinophil. - Few fragments of columnar mucosa, negative for goblet cell metaplasia. MICROSCOPIC DESCRIPTION Slides are reviewed. GROSS DESCRIPTION A. Received in fixative is one container labeled with the patient's name and designated Random esophagus biopsy. The specimen consists of multiple irregular fragments of mccrary tissue that in aggregate measure 0.8 x 0.4 x 0.1 cm. The specimen is totally submitted in one cassette. SD 07/08/2025 CPT:04619
--- NOTE | 2025-07-07 16:51 | PCM.POST.ANE ---
Anesthesia: Postop Eval I Current Vital Signs Temperature: 97.2 F Pulse Rate: 84 Blood Pressure: 131/73 Respiratory Rate: 20 Pulse Ox: 93 Oxygen Delivery Method: Room Air Assessment Airway patent: Yes Spontaneous unlabored respirations: Yes Mental status: Awake nausea: No Vomiting: No Anesthesia Complication: No Fluid Hydration Crystalloid volume administer (ml): 200 Total IV fluid infused: 200 Progress Note Anesthesia document: Postop Eval 1 completed: Yes
--- NOTE | 2025-07-07 16:55 | OP.EGD_ITS ---
Patient Name: Vandana Brown Procedure Date: 07/07/2025 4:31 PM Date of : 1970 Age: 54 Procedure: Upper GI endoscopy Indications: Dysphagia Providers: DO Pilar Smith MD: [facility] Medicines: Monitored Anesthesia Care Patient Profile: This is a 54 year old female. Refer to note in patient chart for documentation of history and physical. Patient has symptoms. Complications: No immediate complications. Procedure: Pre-Anesthesia Assessment: - Prior to the procedure, a History and Physical was performed, and patient medications and allergies were reviewed. The patient is competent. The risks and benefits of the procedure and the sedation options and risks were discussed with the patient. All questions were answered and informed consent was obtained. Patient identification and proposed procedure were verified by the physician in the pre-procedure area. Mental Status Examination: alert and oriented. Airway Examination: normal oropharyngeal airway and neck mobility. Respiratory Examination: clear to auscultation. CV Examination: normal. Prophylactic Antibiotics: The patient does not require prophylactic antibiotics. Prior Anticoagulants: The patient has taken no anticoagulant or antiplatelet agents except for NSAID medication. ASA Grade Assessment: II - A patient with mild systemic disease. After reviewing the risks and benefits, the patient was deemed in satisfactory condition to undergo the procedure. The anesthesia plan was to use monitored anesthesia care (MAC). Immediately prior to administration of medications, the patient was re-assessed for adequacy to receive sedatives. The heart rate, respiratory rate, oxygen saturations, blood pressure, adequacy of pulmonary ventilation, and response to care were monitored throughout the procedure. The physical status of the patient was re-assessed after the procedure. After obtaining informed consent, the endoscope was passed under direct vision. Throughout the procedure, the patient's blood pressure, pulse, and oxygen saturations were monitored continuously. The Endoscope was introduced through the mouth, and advanced to the second part of duodenum. The upper GI endoscopy was accomplished without difficulty. The patient tolerated the procedure well. Scope In: 4:38:19 PM Scope Out: 4:45:29 PM Total Procedure Duration Time 0 hours 7 minutes 10 seconds Findings: Abnormal motility was noted in the lower third of the esophagus. The cricopharyngeus was abnormal. There are extra peristaltic waves in the esophageal body. The distal esophagus/lower esophageal sphincter is spastic, but gives up passage to the endoscope. Tertiary peristaltic waves are noted. Biopsies were obtained from the proximal and distal esophagus with cold forceps for histology of suspected eosinophilic esophagitis. A moderate Schatzki ring was found at the gastroesophageal junction. A guidewire was placed and the scope was withdrawn. Dilation was performed with a Savary dilator with no resistance at 60 Fr. The dilation site was examined following endoscope reinsertion and showed moderate improvement in luminal narrowing. A hiatal hernia was present. No gross lesions were noted in the entire examined stomach. No gross lesions were noted in the entire examined duodenum. Impression: - Abnormal esophageal motility. - Moderate Schatzki ring. Dilated. - Hiatal hernia. - No gross lesions in the entire stomach. - No gross lesions in the entire examined duodenum. - Biopsies were taken with a cold forceps for evaluation of eosinophilic esophagitis. Recommendation: - Discharge patient to home. - Full liquid diet today. - Continue present medications. - Await pathology results. - Gastric Emptying study - Esophageal manometry Procedure Code(s): --- Professional --- 94476, Esophagogastroduodenoscopy, flexible, transoral; with insertion of guide wire followed by passage of dilator(s) through esophagus over guide wire 99846, 59,51, Esophagogastroduodenoscopy, flexible, transoral; with biopsy, single or multiple CPT copyright 2021 [employer]. All rights reserved. The codes documented in this report are preliminary and upon supervisor taping review may be revised to meet current compliance requirements. Rajat Reed DO 07/07/2025 4:55:33 PM This report has been signed electronically. Number of Addenda: 0 Note Initiated On: 07/07/2025 4:31 PM
--- NOTE | 2025-07-07 16:56 | OP.PROVAT_ITS ---
07/07/2025 [facility] Re : Upper GI endoscopy procedure for Vandana [facility] This procedure was performed on Monday, July 07, 2025. My impressions and recommendations are as follows: Impressions : - Abnormal esophageal motility. - Moderate Schatzki ring. Dilated. - Hiatal hernia. - No gross lesions in the entire stomach. - No gross lesions in the entire examined duodenum. - Biopsies were taken with a cold forceps for evaluation of eosinophilic esophagitis. Recommendations : - Discharge patient to home. - Full liquid diet today. - Continue present medications. - Await pathology results. - Gastric Emptying study - Esophageal manometry My findings are described in the full procedure note, which is enclosed. If I can be of further assistance, please feel free to contact me at . Sincerely, Rajat Friend, 07/07/2025 4:55:33 PM This report has been signed electronically.
--- NOTE | 2025-07-07 17:10 | POSTOPAN2_ITS ---
Anesthesia Postop Eval I Sum Postop Eval Completion status Anesthesia document: Postop Eval 1 completed: Yes Anesthesia Postop Eval I Summary Anesthesia Postop Eval I Summary: Anesthesia Postop Eval I: Assessment Summary Airway patent Yes 07/07/25 16:52 [email or web address] Spontaneous unlabored Yes 07/07/25 16:52 [email or web address] [email or web address] respirations Mental status Awake 07/07/25 16:52 [email or web address] [email or web address] nausea No 07/07/25 16:52 [email or web address] [email or web address] Vomiting No 07/07/25 16:52 [email or web address] [email or web address] Anesthesia Postop Eval I: Fluid Summary Crystalloid volume administer 200 07/07/25 16:52 [email or web address] (ml) Colloids volume administered ( ml) Blood Product volume administered (ml) Total IV fluid infused 200 07/07/25 16:52 [email or web address] Anesthesia Postop Eval I: Summary Notes Anesthesia Complication No 07/07/25 16:52 [email or web address] Anesthesia Complication Comment: Post-operative progress note Anesthesia: Postop Eval II Evaluation Mental status: Awake and Calm Pain Level: 0 nausea: No Vomiting: No Complications Anesthesia Complication: No
--- NOTE | 2025-07-07 17:10 | PCM.POSTANE2 ---
Anesthesia Postop Eval I Sum Postop Eval Completion status Anesthesia document: Postop Eval 1 completed: Yes Anesthesia Postop Eval I Summary Anesthesia Postop Eval I Summary: Anesthesia Postop Eval I: Assessment Summary Airway patent Yes 07/07/25 16:52 CARD [email or web address] Spontaneous unlabored Yes 07/07/25 16:52 CARD SERVICES [email or web address] respirations Mental status Awake 07/07/25 16:52 [email or web address] [email or web address] nausea No 07/07/25 16:52 CARD SERVICES [email or web address] Vomiting No 07/07/25 16:52 CARD [email or web address] Anesthesia Postop Eval I: Fluid Summary Crystalloid volume administer 200 07/07/25 16:52 [email or web address] [email or web address] (ml) Colloids volume administered ( ml) Blood Product volume administered (ml) Total IV fluid infused 200 07/07/25 16:52 [email or web address] [email or web address] Anesthesia Postop Eval I: Summary Notes Anesthesia Complication No 07/07/25 16:52 CARD [email or web address] Anesthesia Complication Comment: Post-operative progress note Anesthesia: Postop Eval II Evaluation Mental status: Awake and Calm Pain Level: 0 nausea: No Vomiting: No Complications Anesthesia Complication: No
== END 2025-07-07 17:46 | disposition home or self-care (01) ==
LOC: EN 14:25 → AC 14:27
PROVIDERS: Visit Provider Internal Medicine Gastroenterology
PROC: 0DJ08ZZ Inspection of Upper Intestinal Tract, Via Natural or Artificial Opening Endoscopic (ICD-10-PCS; CPT 43235; principal; 2025-07-07 15:25)
DX: K22.2 Esophageal obstruction (principal); K22.4 Dyskinesia of esophagus; K21.9 Gastro-esophageal reflux disease without esophagitis; K44.9 Diaphragmatic hernia without obstruction or gangrene; I10 Essential (primary) hypertension; Z79.899 Other long term (current) drug therapy
CPT/HCPCS: 43248; 43239; 88305; C1769